=== PATIENT | male | born 1965 | race Caucasian/White ===

== ENCOUNTER 2017-01-09 10:09 | Emergency (ER) | payer BC, OTHER ==
[2017-01-09] MEDS ORDERED: Lidocaine 1% 20 ML MDV INJECT ONE (10:40)
[2017-01-09] MEDS ORDERED: Bacitracin Oint 1 GM U/D Packet TOP ONE (10:40)
--- NOTE | 2017-01-09 10:58 | EDM.PDOC ---
ED HPI GENERAL MEDICAL PROBLEM - General Chief Complaint: Laceration Stated Complaint: CUT TO RIGHT POINTER FINGER Time Seen by Provider: 01/09/17 10:14 Source of Information: Reports: Patient History Limitations: Reports: No Limitations - History of Present Illness INITIAL COMMENTS - FREE TEXT/NARRATIVE: HISTORY AND PHYSICAL: History of present illness: Patient is a 51-year-old male presents to the emergency room with complaints of a laceration to his right index finger. 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 This resulted in a laceration of the distal right index finger. Bleeding is controlled. Review of systems: As per history of present illness and below otherwise all systems reviewed and negative. Past medical history: As per history of present illness and as reviewed below otherwise noncontributory. Surgical history: As per history of present illness and as reviewed below otherwise noncontributory. Social history: No reported history of drug or alcohol abuse. Family history: As per history of present illness and as reviewed below otherwise noncontributory. Physical exam: Gen.: Nontoxic-appearing 51-year-old male. The cecum placenta is without shortness of breath. Alert and oriented. HEENT: Atraumatic, normocephalic, pupils reactive, negative for conjunctival pallor or scleral icterus, mucous membranes moist, throat clear, neck supple, nontender, trachea midline. Lungs: Clear to auscultation, breath sounds equal bilaterally, chest nontender. Heart: S1S2, regular, negative for clicks, rubs, or JVD. Abdomen: Soft, nondistended, nontender. Negative for masses or hepatosplenomegaly. Negative for costovertebral tenderness. Pelvis: Stable nontender. Genitourinary: Deferred. Rectal: Deferred. Skin: "C "shaped laceration to the right index finger, approximately 2 cm Extremities: Patient has full flexion and extension of the affected finger. No numbness or tingling to the affected extremity. Area was explored there is no tendon involvement. Strong radial pulse Neurovascular unremarkable. Neuro: Awake, alert, oriented. Cranial nerves II through XII unremarkable. Cerebellum unremarkable. Motor and sensory unremarkable throughout. Exam nonfocal. Diagnostics: X-ray Therapeutics: Tdap 1% lidocaine was used to anesthetize finger. Skin was washed with chlorhexidine and irrigated with wound wash. #8 interrupted sutures were placed using a 4-0 nylon. Vision tolerated procedure well. Subjacent was applied with a bulky nonstick dressing. Cage splint to protect the laceration was given with education. Impression: Laceration Plan: 1. Please monitor for monitor for signs of infection as we discussed. Keep the skin clean and dry. 2. Stitches need to be removed in 7-10 days. 3. These follow-up with your primary care provider in the next 1-2 days. Return to the emergency room as needed as discussed Definitive disposition and diagnosis as appropriate pending reevaluation and review of above. Onset: Today Duration: Minutes: Location: Reports: Upper Extremity, Right Right 2-Index finger Pain Score (Numeric/FACES): 5 - Related Data Allergies Allergy/AdvReac Type Severity Reaction Status Date / Time naproxen sodium [From Aleve] Allergy Swelling Verified 01/09/17 10:36 Home Meds: Home Meds Aspirin [Miguelito Chewable Aspirin] 81 mg PO QAM 08/19/14 [History] Insulin Aspart [NovoLOG] 5 unit SUBCUT TID 08/19/14 [History] Insulin Detemir [Levemir] 0 unit SUBCUT BID 08/19/14 [History] Gabapentin [Neurontin] 300 mg PO TID PRN 01/09/17 [History] Lisinopril 10 mg PO DAILY 01/09/17 [History] Saxagliptin HCl [Onglyza] 5 mg PO DAILY 01/09/17 [History] Tamsulosin [Flomax] 0.4 mg PO DAILY 01/09/17 [History] Past Medical History Musculoskeletal History: Reports: Other (See Below) Other Musculoskeletal History: partial left foot amputation Endocrine/Metabolic History: Reports: Diabetes, Type I - Infectious Disease History Infectious Disease History: Reports: Chicken Pox, Measles, MRSA, Mumps Social & Family History - Family History Family Medical History: Noncontributory - Tobacco Use Smoking Status *Q: Current Every Day Smoker Years of Tobacco use: 20 Packs/Tins Daily: 1 - Caffeine Use Caffeine Use: Reports: None - Alcohol Use Days Per Week of Alcohol Use: 0 - Recreational Drug Use Recreational Drug Use: No ED ROS GENERAL - Review of Systems Review Of Systems: ROS reveals no pertinent complaints other than HPI. ED EXAM, SKIN/RASH Exam: See Below (See dictation) ED SKIN PROCEDURES - Laceration/Wound Repair Right Distal Finger Lac/Wound length In cm: 2 Anesthetic Type: Digital Local Anesthesia - Lidocaine (Xylocaine): 1% Plain Local Anesthetic Volume: 5cc Skin Prep: Chlorhexidine (Hibiciens), Saline, Sterile Drape Saline Irrigation (cc's): 20 Exploration/Debridement/Repair: Wound Explored, In a Bloodless Field Closed with: Sutures Suture Size: 4-0 # of Sutures: 8 Suture Type: Nylon Course - Vital Signs Last Recorded V/S: Last Vital Signs Temp 36.4 C 01/09/17 10:33 Pulse 88 01/09/17 12:09 Resp 18 01/09/17 12:09 BP 136/88 01/09/17 12:09 Pulse Ox 95 01/09/17 12:09 - Orders/Labs/Meds Orders: Active Orders 24 hr Category Date Time Status Vaccines to be Administered [RC] PER UNIT ROUTINE Care 01/09/17 11:38 Active Meds: Medications Discontinued Medications Generic Name Dose Route Start Last Admin Trade Name Harrison PRN Reason Stop Dose Admin Bacitracin 1 dose 01/09/17 10:40 01/09/17 10:52 Bacitracin Oint 1 Gm TOP 01/09/17 10:41 1 dose ONETIME ONE Administration Diphtheria/Tetanus/Acell Pertussis 0.5 ml 01/09/17 11:38 01/09/17 11:48 Adacel IM 01/09/17 11:39 0.5 ml .ONCE ONE Administration Lidocaine HCl 20 ml 01/09/17 10:40 01/09/17 10:52 Xylocaine 1% INJECT 01/09/17 10:41 20 ml ONETIME ONE Administration Departure - Departure Time of Disposition: 11:41 Disposition: Home, Self-Care 01 Clinical Impression: Laceration - Discharge Information Instructions: Laceration Care, Adult, [id number] Referrals: PCP,None [Primary Care Provider] - Forms: ED Department Discharge Additional Instructions: My general discharge The following information is given to patients seen in the emergency department who are being discharged to home. This information is to outline your options for follow-up care. We provide all patients seen in our emergency department with a follow-up referral. The need for follow-up, as well as the timing and circumstances, are variable depending upon the specifics of your emergency department visit. If you don't have a primary care physician on staff, we will provide you with a referral. We always advise you to contact your personal physician following an emergency department visit to inform them of the circumstance of the visit and for follow-up with them and/or the need for any referrals to a consulting specialist. The emergency department will also refer you to a specialist when appropriate. This referral assures that you have the opportunity for follow-up care with a specialist. All of these measure are taken in an effort to provide you with optimal care, which includes your follow-up. Under all circumstances we always encourage you to contact your private physician who remains a resource for coordinating your care. When calling for follow-up care, please make the office aware that this follow-up is from your recent emergency room visit. If for any reason you are refused follow-up, please contact the [facility] at and asked to speak to the emergency department charge nurse. [facility] [address] [place] [id number] 1. Please monitor for monitor for signs of infection as we discussed. Keep the skin clean and dry. 2. Stitches need to be removed in 7-10 days. 3. These follow-up with your primary care provider in the next 1-2 days. Return to the emergency room as needed as discussed - My Orders Last 24 Hours: My Active Orders 01/09/17 11:38 Vaccines to be Administered [RC] PER UNIT ROUTINE - Assessment/Plan Last 24 Hours: My Active Orders 01/09/17 11:38 Vaccines to be Administered [RC] PER UNIT ROUTINE
--- NOTE | 2017-01-09 11:36 | CR ---
EXAMINATION: Right hand, second digit HISTORY: Injury COMPARISON: None TECHNIQUE: 3 views FINDINGS/IMPRESSION: There is no acute osseous abnormality, dislocation, or fracture. There is soft t issue swelling and likely defect involving the distal aspect of the second digit. Bone mineralization and joint spaces are otherwise normal.
[2017-01-09] MEDS ORDERED: Diphtheria,Pertussis(Acell),Tetanus Vaccine 0.5 ML Syringe IM ONE (11:38)
[2017-01-09 12:10] VITALS: BP 136/88
== END 2017-01-09 12:02 | disposition home or self-care (01) ==
LOC: MW.ED 10:09
DX: S61.210A Laceration without foreign body of right index finger without damage to nail, initial encounter (principal); Z23 Encounter for immunization; E10.9 Type 1 diabetes mellitus without complications; F17.210 Nicotine dependence, cigarettes, uncomplicated; Z79.4 Long term (current) use of insulin; Z79.82 Long term (current) use of aspirin; Z79.899 Other long term (current) drug therapy; Z88.8 Allergy status to other drugs, medicaments and biological substances; W27.8XXA Contact with other nonpowered hand tool, initial encounter
CPT/HCPCS: 12001; 73140-26-F6; 73140-F6; 90471; 90715; 99283; 99283-25

== ENCOUNTER 2017-11-08 16:51 | Emergency (ER) | payer SELFPAY ==
[2017-11-08] MEDS ORDERED: Sodium Chloride 0.9% 10 ML Syringe FLUSH PRN ×2 (16:53→17:25)
[2017-11-08] MEDS ORDERED: Sodium Chloride 0.9% 1,000 ML IV ONE ×3 (16:53→19:31)
[2017-11-08] MEDS ORDERED: Sodium Chloride 0.9% 2.5 ML Syringe FLUSH PRN ×2 (16:53→17:25)
--- NOTE | 2017-11-08 17:05 | EDM.PDOC ---
ED HPI GENERAL MEDICAL PROBLEM - General Chief Complaint: Neurological Problem Stated Complaint: FEELS VERY DIZZY Time Seen by Provider: 11/08/17 17:04 Source of Information: Reports: Patient History Limitations: Reports: No Limitations - History of Present Illness INITIAL COMMENTS - FREE TEXT/NARRATIVE: HISTORY AND PHYSICAL: History of present illness: Patient is a 52-year-old male presents to the ED for generally not feeling well and dizziness. He states that it really started this morning although he was not feeling great last night. He states he feels as if he got hit by a truck but reports he is on "so much pain medication" that he denies any pain. He states he feels dizzy and lightheaded, especially when he goes from sitting to standing position. He states his eyes feel blurry especially in the sun. He denies chest pain, SOB, abdominal pain, nausea, vomiting, diarrhea, headache. He reports some pressure between his shoulder blades recently. Past medical history significant for Type 1 diabetes and hypertension. Patient is on gabapentin for neuropathy. Review of systems: As per history of present illness and below otherwise all systems reviewed and negative. Past medical history: As per history of present illness and as reviewed below otherwise noncontributory. Surgical history: As per history of present illness and as reviewed below otherwise noncontributory. Social history: No reported history of drug or alcohol abuse. Family history: As per history of present illness and as reviewed below otherwise noncontributory. Physical exam: General: Patient lying in bed diaphoretic and pale but no acute distress HEENT: Mucous membranes dry. Atraumatic, normocephalic, pupils reactive, negative for conjunctival pallor or scleral icterus Lungs: Clear to auscultation, breath sounds equal bilaterally, chest nontender. Heart: Systolic murmur noted. S1S2, regular, negative for clicks, rubs, Abdomen: Soft, nondistended, nontender. Negative for masses or hepatosplenomegaly. Negative for costovertebral tenderness Extremities: Atraumatic, negative for cords or calf pain. Neurovascular unremarkable. Neuro: Awake, alert, oriented. Cranial nerves II through XII unremarkable. Cerebellum unremarkable. Motor and sensory unremarkable throughout. Exam nonfocal. Notes: BP 1840 is 86/56, patient sitting up alert and oriented x 3. Discussed with hospitalist who would like patient transferred to a facility with cardiac cath due to EKG abnormalities. Diagnostics: CBC, CMP, troponin, lipase, UA EKG, chest x-ray Therapeutics: 1 L normal saline x 2 10 units Regular Insulin Impression: Hypotension EKG abnormalities Plan: Dr. Andrews at [facility] accepted patient for transfer. Definitive disposition and diagnosis as appropriate pending reevaluation and review of above. - Related Data Allergies Allergy/AdvReac Type Severity Reaction Status Date / Time naproxen sodium [From Aleve] Allergy Swelling Verified 11/08/17 17:11 Home Meds: Home Meds Aspirin [Miguelito Chewable Aspirin] 81 mg PO QAM 08/19/14 [History] Insulin Aspart [NovoLOG] 5 unit SUBCUT TID 08/19/14 [History] Insulin Detemir [Levemir] 0 unit SUBCUT BID 08/19/14 [History] Gabapentin [Neurontin] 300 mg PO TID PRN 01/09/17 [History] Lisinopril 10 mg PO DAILY 01/09/17 [History] Saxagliptin HCl [Onglyza] 5 mg PO DAILY 01/09/17 [History] Tamsulosin [Flomax] 0.4 mg PO DAILY 01/09/17 [History] Past Medical History Musculoskeletal History: Reports: Other (See Below) Other Musculoskeletal History: partial left foot amputation Endocrine/Metabolic History: Reports: Diabetes, Type I - Infectious Disease History Infectious Disease History: Reports: Chicken Pox, Measles, MRSA, Mumps Social & Family History - Family History Family Medical History: Noncontributory - Caffeine Use Caffeine Use: Reports: None ED ROS GENERAL - Review of Systems Review Of Systems: ROS reveals no pertinent complaints other than HPI. ED EXAM, NEURO - Physical Exam Exam: See Below (see dictation) Course - Vital Signs Last Recorded V/S: Last Vital Signs Temp 36.3 C 11/08/17 17:08 Pulse 93 11/08/17 18:39 Resp 18 11/08/17 17:08 BP 109/56 L 11/08/17 18:39 Pulse Ox 91 L 11/08/17 17:08 - Orders/Labs/Meds Orders: Active Orders 24 hr Category Date Time Status EKG Documentation Completion [RC] STAT Care 11/08/17 16:58 Active RT Aerosol Therapy [RC] ASDIRECTED Care 11/08/17 18:05 Active Chest 1V Frontal [CR] Stat Exams 11/08/17 17:03 Taken UA W/MICROSCOPIC [URIN] Stat Lab 11/08/17 16:58 Ordered Sodium Chloride 0.9% [Saline Flush] Med 11/08/17 16:53 Active 10 ml FLUSH ASDIRECTED PRN Sodium Chloride 0.9% [Saline Flush] Med 11/08/17 17:25 Active 10 ml FLUSH ASDIRECTED PRN Sodium Chloride 0.9% [Saline Flush] Med 11/08/17 16:53 Active 2.5 ml FLUSH ASDIRECTED PRN Sodium Chloride 0.9% [Saline Flush] Med 11/08/17 17:25 Active 2.5 ml FLUSH ASDIRECTED PRN Saline Lock Insert [OM.PC] Stat Oth 11/08/17 16:53 Ordered Saline Lock Insert [OM.PC] Stat Ot 11/08/17 17:25 Ordered Medication Orders Sodium Chloride (Saline Flush) 10 ml FLUSH ASDIRECTED PRN PRN Reason: Keep Vein Open Sodium Chloride (Saline Flush) 2.5 ml FLUSH ASDIRECTED PRN PRN Reason: Keep Vein Open Sodium Chloride (Saline Flush) 10 ml FLUSH ASDIRECTED PRN PRN Reason: Keep Vein Open Sodium Chloride (Saline Flush) 2.5 ml FLUSH ASDIRECTED PRN PRN Reason: Keep Vein Open Labs: Laboratory Tests 11/08/17 11/08/17 11/08/17 Range/Units 17:06 17:06 17:06 WBC 10.94 (4.0-11.0) K/uL RBC 4.98 (4.50-5.90) M/uL Hgb 14.3 (13.0-17.0) g/dL Hct 40.0 (38.0-50.0) % MCV 80.3 (80.0-98.0) fL MCH 28.7 (27.0-32.0) pg MCHC 35.8 (31.0-37.0) g/dL RDW Std Deviation 38.5 (28.0-62.0) fl RDW Coeff of Ananth 13 (11.0-15.0) % Plt Count 192 (150-400) K/uL MPV 9.60 (7.40-12.00) fL Neut % (Auto) 65.7 (48.0-80.0) % Lymph % (Auto) 17.7 (16.0-40.0) % [place] % (Auto) 10.8 (0.0-15.0) % Eos % (Auto) 5.3 (0.0-7.0) % Baso % (Auto) 0.5 (0.0-1.5) % Neut # (Auto) 7.2 H (1.4-5.7) K/uL Lymph # (Auto) 1.9 (0.6-2.4) K/uL [place] # (Auto) 1.2 H (0.0-0.8) K/uL Eos # (Auto) 0.6 (0.0-0.7) K/uL Baso # (Auto) 0.1 (0.0-0.1) K/uL Nucleated RBC % 0.0 /100WBC Nucleated RBCs # 0 K/uL INR 1.01 VBG pH (7.31-7.41) VBG pCO2 (35-45) mmHG VBG pO2 (30-40) mmHG VBG HCO3 (22-30) mEq/L VBG Total CO2 (41-51) mmol/L VBG Base Excess (-3.0-3.0) Lactate (0.20-2.00) mmol/L Sodium 136 (136-148) mmol/L Potassium 4.3 (3.5-5.1) mmol/L Chloride 100 (98-107) mmol/L Carbon Dioxide 25.3 (21.0-32.0) mmol/L BUN 36 H (7.0-18.0) mg/dL Creatinine 2.7 H (0.8-1.3) mg/dL Est Cr Clr Drug Dosing 36.17 mL/min Estimated GFR (MDRD) 24.9 ml/min Glucose 340 H (74-106) mg/dL Calcium 10.9 H (8.5-10.1) mg/dL Total Bilirubin 0.4 (0.2-1.0) mg/dL AST 15 (15-37) IU/L ALT 21 (14-63) IU/L Alkaline Phosphatase 73 (46-116) U/L Troponin I < 0.050 (0.000-0.056) ng/mL Total Protein 8.0 (6.4-8.2) g/dL Albumin 3.3 L (3.4-5.0) g/dL Globulin 4.7 H (2.0-3.5) g/dL Albumin/Globulin Ratio 0.7 L (1.3-2.8) Lipase 228 (73-393) U/L 11/08/17 11/08/17 Range/Units 17:06 17:37 WBC (4.0-11.0) K/uL RBC (4.50-5.90) M/uL Hgb (13.0-17.0) g/dL Hct (38.0-50.0) % MCV (80.0-98.0) fL MCH (27.0-32.0) pg MCHC (31.0-37.0) g/dL RDW Std Deviation (28.0-62.0) fl RDW Coeff of Ananth (11.0-15.0) % Plt Count (150-400) K/uL MPV (7.40-12.00) fL Neut % (Auto) (48.0-80.0) % Lymph % (Auto) (16.0-40.0) % [place] % (Auto) (0.0-15.0) % Eos % (Auto) (0.0-7.0) % Baso % (Auto) (0.0-1.5) % Neut # (Auto) (1.4-5.7) K/uL Lymph # (Auto) (0.6-2.4) K/uL Raleigh # (Auto) (0.0-0.8) K/uL Eos # (Auto) (0.0-0.7) K/uL Baso # (Auto) (0.0-0.1) K/uL Nucleated RBC % /100WBC Nucleated RBCs # K/uL INR VBG pH 7.36 (7.31-7.41) VBG pCO2 17 L (35-45) mmHG VBG pO2 62 H (30-40) mmHG VBG HCO3 10 L (22-30) mEq/L VBG Total CO2 10 L (41-51) mmol/L VBG Base Excess -14.3 L (-3.0-3.0) Lactate 1.7 (0.20-2.00) mmol/L Sodium (136-148) mmol/L Potassium (3.5-5.1) mmol/L Chloride (98-107) mmol/L Carbon Dioxide (21.0-32.0) mmol/L BUN (7.0-18.0) mg/dL Creatinine (0.8-1.3) mg/dL Est Cr Clr Drug Dosing mL/min Estimated GFR (MDRD) ml/min Glucose (74-106) mg/dL Calcium (8.5-10.1) mg/dL Total Bilirubin (0.2-1.0) mg/dL AST (15-37) IU/L ALT (14-63) IU/L Alkaline Phosphatase (46-116) U/L Troponin I (0.000-0.056) ng/mL Total Protein (6.4-8.2) g/dL Albumin (3.4-5.0) g/dL Globulin (2.0-3.5) g/dL Albumin/Globulin Ratio (1.3-2.8) Lipase (73-393) U/L Meds: Medications Generic Name Dose Route Start Last Admin Trade Name Freq PRN Reason Stop Dose Admin Sodium Chloride 10 ml 11/08/17 16:53 Saline Flush FLUSH ASDIRECTED PRN Keep Vein Open Sodium Chloride 2.5 ml 11/08/17 16:53 Saline Flush FLUSH ASDIRECTED PRN Keep Vein Open Sodium Chloride 10 ml 11/08/17 17:25 Saline Flush FLUSH ASDIRECTED PRN Keep Vein Open Sodium Chloride 2.5 ml 11/08/17 17:25 Saline Flush FLUSH ASDIRECTED PRN Keep Vein Open Discontinued Medications Generic Name Dose Route Start Last Admin Trade Name Freq PRN Reason Stop Dose Admin Albuterol 2.5 mg 11/08/17 18:05 11/08/17 18:13 Proventil Neb Soln NEB 11/08/17 18:06 2.5 mg ONETIME ONE Administration Sodium Chloride 1,000 mls @ 999 mls/hr 11/08/17 16:53 11/08/17 17:23 Normal Saline IV 11/08/17 17:53 999 mls/hr STAT ONE Administration Sodium Chloride 1,000 mls @ 999 mls/hr 11/08/17 17:51 11/08/17 17:53 Normal Saline IV 11/08/17 18:51 999 mls/hr .Bolus ONE Administration Insulin Human Regular 10 unit 11/08/17 18:18 Novolin R IVPUSH 11/08/17 18:19 ONETIME ONE Protocol Departure - Departure Time of Disposition: 19:18 Disposition: DC/Tfer to Acute Hospital 02 Condition: Good Clinical Impression: Hypotension, EKG abnormalities - Discharge Information - My Orders Last 24 Hours: My Active Orders 11/08/17 16:53 Sodium Chloride 0.9% [Saline Flush] 10 ml FLUSH ASDIRECTED PRN Sodium Chloride 0.9% [Saline Flush] 2.5 ml FLUSH ASDIRECTED PRN Saline Lock Insert [OM.PC] Stat 11/08/17 16:58 EKG Documentation Completion [RC] STAT UA W/MICROSCOPIC [URIN] Stat 11/08/17 17:03 Chest 1V Frontal [CR] Stat - Assessment/Plan Last 24 Hours: My Active Orders 11/08/17 16:53 Sodium Chloride 0.9% [Saline Flush] 10 ml FLUSH ASDIRECTED PRN Sodium Chloride 0.9% [Saline Flush] 2.5 ml FLUSH ASDIRECTED PRN Saline Lock Insert [OM.PC] Stat 11/08/17 16:58 EKG Documentation Completion [RC] STAT UA W/MICROSCOPIC [URIN] Stat 11/08/17 17:03 Chest 1V Frontal [CR] Stat
[2017-11-08 17:43] LABS: CHLORIDE,CL 100 mmol/L (98-107); SODIUM,NA 136 mmol/L (136-148)
[2017-11-08] MEDS ORDERED: Albuterol 0.083% 2.5 MG/3 ML Neb Soln NEB ONE (18:05)
[2017-11-08] MEDS ORDERED: Insulin Regular, Human 100 Units/ML 10 ML Vial IVPUSH ONE ×2 (18:18→19:15)
[2017-11-08 23:52] VITALS: BP 123/88
--- NOTE | 2017-11-11 08:55 | CR ---
EXAM DATE: 11/08/17 PATIENT'S AGE: 52 Patient: SURY SAUCEDA Facility: [place], [place] Site . Site : [id number] Study: XRay Chest [id number]/20/2018 5:32:13 PM Ordering Physician: Doctor Mclaughlin Final Report: HISTORY: Dizziness. TECHNIQUE: Portable frontal view the chest. COMPARISON: None. FINDINGS: No airspace consolidation. No pleural effusion or pneumothorax. Pulmonary vasculature is within normal limits. Cardiomediastinal silhouette is within normal limits. IMPRESSION: No acute findings. Dictated by Eliseo Ramires MD @ Nov 08 2017 6:19PM (Electronic Signature) Report Signed by Proxy. ANDRIY
== END 2017-11-08 19:33 ==
LOC: MW.ED 16:51 → MW.ICU 18:31 → UNDOADMIN 18:31 → UNDODISIN 19:33 → MW.ED 19:33
DX: I95.9 Hypotension, unspecified (principal); R94.31 Abnormal electrocardiogram [ECG] [EKG]; E10.9 Type 1 diabetes mellitus without complications; Z88.8 Allergy status to other drugs, medicaments and biological substances
CPT/HCPCS: 36415; 71045; 80053; 82803; 82962; 83605; 83690; 84484; 85025; 85610; 87040; 93005; 94640; 96360; 96361; 99285; J1815; J7040; 99284

== ENCOUNTER 2018-05-15 13:31 | Emergency (ER) | payer MEDICAID ==
[2018-05-15] MEDS ORDERED: Sodium Chloride 0.9% 1,000 ML IV ONE ×2 (13:38→14:37)
[2018-05-15] MEDS ORDERED: Furosemide 40 MG/4 ML VIAL IVPUSH ONE (13:46)
--- NOTE | 2018-05-15 13:58 | EDM.PDOC ---
ED HPI GENERAL MEDICAL PROBLEM - General Chief Complaint: Genitourinary Problem Stated Complaint: KIDNEYS Time Seen by Provider: 05/15/18 13:53 Source of Information: Reports: Patient History Limitations: Reports: No Limitations - History of Present Illness INITIAL COMMENTS - FREE TEXT/NARRATIVE: HISTORY AND PHYSICAL: History of present illness: Patient is a 53-year-old male who presents to the emergency room from [facility] with concerns of elevated calcium levels. He states he initially went to [facility] for evaluation of syncopal episodes. He states that they did some routine lab work which showed he had high calcium. Encouraged him to come to the emergency room for evaluation. Patient states he has had 3 syncopal episodes over the past week. During these episodes he initially is dizzy and then finds himself on the ground. Afterwards he has been able to resume his routine ADLs. He denies any headache, visual changes, diaphoresis. Denies any fever, chills, chest pain, shortness of breath or cough. History of HTN and DM and takes oral and insulin diabetic medications. History of renal insufficiency which he has been transferred for in the past. Review of systems: As per history of present illness and below otherwise all systems reviewed and negative. Past medical history: As per history of present illness and as reviewed below otherwise noncontributory. Surgical history: As per history of present illness and as reviewed below otherwise noncontributory. Social history: See social history for further information Family history: As per history of present illness and as reviewed below otherwise noncontributory. Physical exam: General: Well-developed and well-nourished 53-year-old male. Alert and oriented. Appears in no acute distress. HEENT: Nontender with palpation, normocephalic, pupils equal and reactive bilaterally, negative for conjunctival pallor or scleral icterus, mucous membranes moist, TMs normal bilaterally, throat clear, neck supple, nontender, trachea midline. No drooling or trismus noted. No meningeal signs. No hot potato voice noted. Lungs: Clear to auscultation, breath sounds equal bilaterally, chest nontender. Heart: S1S2, regular rate and rhythm without overt murmur Abdomen: Soft, obese, nontender. Negative for masses or hepatosplenomegaly. Negative for costovertebral tenderness. Pelvis: Stable nontender. Genitourinary: Deferred. Rectal: Deferred. Skin: Crow/pale hue. Intact, warm, dry. No lesions or rashes noted. Extremities: Moves all extremities per self without difficulty or deficits, negative for cords or calf pain. +2 pitting edema to bilateral LE. Palpable pedal pulses bilat. Neurovascular unremarkable. Neuro: Awake, alert, oriented. Cranial nerves II through XII unremarkable. Cerebellum unremarkable. Motor and sensory unremarkable throughout. Exam nonfocal. Notes: 05/15/18 Labs at [facility]: Calcium was 14.7, Hemoglobin A1c 7.5, BUN 42, Creat 5.68 Please see this ER visits labs, they have increased. Head CT negative and chest x-ray. Vital signs are stable. Dr Rangel, ER MD at [facility] in [place], was consulted on this case. She is agreeable to accepting this patient for transfer. Dr Valerio, the hospitalist, will make this patient a direct admit. This information was shared with the patient. He voices understanding and is agreeable. Patient will go via ground EMS Diagnostics: CBC, CMP, troponin, EKG, one view chest, head CT, UA Therapeutics: IV fluid, Lasix Impression: Acute Renal Failure Hypercalcemia Plan: Transfer to [facility] in [place] Definitive disposition and diagnosis as appropriate pending reevaluation and review of above. - Related Data Allergies Allergy/AdvReac Type Severity Reaction Status Date / Time naproxen sodium [From Aleve] Allergy Swelling Verified 11/08/17 17:11 Home Meds: Home Meds Acetaminophen/HYDROcodone [Baring 325-5 MG] 1 tab PO Q4H 05/15/18 [History] Aspirin [Adult Aspirin] 81 mg PO DAILY 05/15/18 [History] Clopidogrel [Plavix] 75 mg PO DAILY 05/15/18 [History] Colchicine 0.6 mg PO DAILY 05/15/18 [History] Esomeprazole [NexIUM] 40 mg PO DAILY 05/15/18 [History] Gabapentin [Neurontin] 100 mg PO TID 05/15/18 [History] Insulin Aspart [NovoLOG] 0 unit WITHMEALSANDBED 05/15/18 [History] Insulin Detemir [Levemir] 0 unit SUBCUT DAILY 05/15/18 [History] Magnesium Oxide 400 mg PO DAILY 05/15/18 [History] Polymyxin B/Trimethoprim [PolyTrim Ophth Soln] 10 ml OP QID 05/15/18 [History] Potassium Chloride [Klor-Con 10] 1 tab BID 05/15/18 [History] Saxagliptin HCl [Onglyza] 5 mg PO DAILY 05/15/18 [History] Tamsulosin [Flomax] 1 tab DAILY 05/15/18 [History] metOLazone [Metolazone] 2.5 mg PO DAILY 05/15/18 [History] Past Medical History HEENT History: Reports: Impaired Vision Cardiovascular History: Reports: Blood Clots/VTE/DVT Musculoskeletal History: Reports: Other (See Below) Other Musculoskeletal History: partial left foot amputation Endocrine/Metabolic History: Reports: Diabetes, Type I - Infectious Disease History Infectious Disease History: Reports: Chicken Pox, Measles, Mumps - Past Surgical History HEENT Surgical History: Reports: Tonsillectomy, Visual Social & Family History - Family History Family Medical History: Noncontributory - Tobacco Use Smoking Status *Q: Former Smoker Used Tobacco, but Quit: Yes Month/Year Tobacco Last Used: 1.5 - Caffeine Use Caffeine Use: Reports: None - Recreational Drug Use Recreational Drug Use: No ED ROS GENERAL - Review of Systems Review Of Systems: ROS reveals no pertinent complaints other than HPI. ED EXAM, GENERAL - Physical Exam Exam: See Below (See dictation) Course - Vital Signs Last Recorded V/S: Last Vital Signs Temp 96.5 F 05/15/18 13:39 Pulse 91 05/15/18 13:39 Resp 18 05/15/18 13:39 BP 130/71 05/15/18 13:39 Pulse Ox 97 05/15/18 13:39 - Orders/Labs/Meds Orders: Active Orders 24 hr Category Date Time Status EKG Documentation Completion [RC] STAT Care 05/15/18 13:38 Active Castellano Catheter Insertion [Insert Urinary Catheter] [OM. Care 05/15/18 14:45 Ordered PC] Q24H Urinary Catheter Assessment [RC] ASDIRECTED Care 05/15/18 14:38 Ordered Sodium Chloride 0.9% [Normal Saline] 1,000 ml Med 05/15/18 14:37 Ordered IV STAT Medication Orders Sodium Chloride (Normal Saline) 1,000 mls @ 999 mls/hr IV STAT ONE Stop: 05/15/18 15:37 Labs: Laboratory Tests 05/15/18 05/15/18 05/15/18 Range/Units 13:46 13:46 13:46 WBC 7.47 (4.0-11.0) K/uL RBC 3.77 L (4.50-5.90) M/uL Hgb 10.0 L (13.0-17.0) g/dL Hct 30.6 L (38.0-50.0) % MCV 81.2 (80.0-98.0) fL MCH 26.5 L (27.0-32.0) pg MCHC 32.7 (31.0-37.0) g/dL RDW Std Deviation 41.0 (28.0-62.0) fl RDW Coeff of Ananth 14 (11.0-15.0) % Plt Count 223 (150-400) K/uL MPV 8.50 (7.40-12.00) fL Neut % (Auto) 63.4 (48.0-80.0) % Lymph % (Auto) 18.9 (16.0-40.0) % [place] % (Auto) 10.3 (0.0-15.0) % Eos % (Auto) 7.1 H (0.0-7.0) % Baso % (Auto) 0.3 (0.0-1.5) % Neut # (Auto) 4.7 (1.4-5.7) K/uL Lymph # (Auto) 1.4 (0.6-2.4) K/uL [place] # (Auto) 0.8 (0.0-0.8) K/uL Eos # (Auto) 0.5 (0.0-0.7) K/uL Baso # (Auto) 0.0 (0.0-0.1) K/uL Nucleated RBC % 0.0 /100WBC Nucleated RBCs # 0 K/uL Sodium 136 (136-148) mmol/L Potassium 4.0 (3.5-5.1) mmol/L Chloride 99 (98-107) mmol/L Carbon Dioxide 25.5 (21.0-32.0) mmol/L BUN 42 H (7.0-18.0) mg/dL Creatinine 6.1 H (0.8-1.3) mg/dL Est Cr Clr Drug Dosing 15.83 mL/min Estimated GFR (MDRD) 9.7 ml/min Glucose 191 H (74-106) mg/dL Calcium 16.0 H (8.5-10.1) mg/dL Total Bilirubin 0.2 (0.2-1.0) mg/dL AST 19 (15-37) IU/L ALT 22 (14-63) IU/L Alkaline Phosphatase 77 (46-116) U/L Troponin I < 0.050 (0.000-0.056) ng/mL Total Protein 7.6 (6.4-8.2) g/dL Albumin 2.8 L (3.4-5.0) g/dL Globulin 4.8 H (2.6-4.0) g/dL Albumin/Globulin Ratio 0.6 L (0.9-1.6) Urine Color Urine Appearance Urine pH (5.0-8.0) Ur Specific [place] (1.001-1.035) Urine Protein (NEGATIVE) mg/dL Urine Glucose (UA) (NEGATIVE) mg/dL Urine Ketones (NEGATIVE) mg/dL Urine Occult Blood (NEGATIVE) Urine Nitrite (NEGATIVE) Urine Bilirubin (NEGATIVE) Urine Urobilinogen (<2.0) EU/dL Ur Leukocyte Esterase (NEGATIVE) Urine RBC (0-2/HPF) Urine WBC (0-5/HPF) Ur Epithelial Cells (NONE-FEW) Urine Bacteria (NEGATIVE) 05/15/18 Range/Units 14:30 WBC (4.0-11.0) K/uL RBC (4.50-5.90) M/uL Hgb (13.0-17.0) g/dL Hct (38.0-50.0) % MCV (80.0-98.0) fL MCH (27.0-32.0) pg MCHC (31.0-37.0) g/dL RDW Std Deviation (28.0-62.0) fl RDW Coeff of Ananth (11.0-15.0) % Plt Count (150-400) K/uL MPV (7.40-12.00) fL Neut % (Auto) (48.0-80.0) % Lymph % (Auto) (16.0-40.0) % [place] % (Auto) (0.0-15.0) % Eos % (Auto) (0.0-7.0) % Baso % (Auto) (0.0-1.5) % Neut # (Auto) (1.4-5.7) K/uL Lymph # (Auto) (0.6-2.4) K/uL [place] # (Auto) (0.0-0.8) K/uL Eos # (Auto) (0.0-0.7) K/uL Baso # (Auto) (0.0-0.1) K/uL Nucleated RBC % /100WBC Nucleated RBCs # K/uL Sodium (136-148) mmol/L Potassium (3.5-5.1) mmol/L Chloride (98-107) mmol/L Carbon Dioxide (21.0-32.0) mmol/L BUN (7.0-18.0) mg/dL Creatinine (0.8-1.3) mg/dL Est Cr Clr Drug Dosing mL/min Estimated GFR (MDRD) ml/min Glucose (74-106) mg/dL Calcium (8.5-10.1) mg/dL Total Bilirubin (0.2-1.0) mg/dL AST (15-37) IU/L ALT (14-63) IU/L Alkaline Phosphatase (46-116) U/L Troponin I (0.000-0.056) ng/mL Total Protein (6.4-8.2) g/dL Albumin (3.4-5.0) g/dL Globulin (2.6-4.0) g/dL Albumin/Globulin Ratio (0.9-1.6) Urine Color YELLOW Urine Appearance CLEAR Urine pH 6.0 (5.0-8.0) Ur Specific [place] 1.015 (1.001-1.035) Urine Protein 30 H (NEGATIVE) mg/dL Urine Glucose (UA) NEGATIVE (NEGATIVE) mg/dL Urine Ketones NEGATIVE (NEGATIVE) mg/dL Urine Occult Blood TRACE-INTACT H (NEGATIVE) Urine Nitrite NEGATIVE (NEGATIVE) Urine Bilirubin NEGATIVE (NEGATIVE) Urine Urobilinogen 0.2 (<2.0) EU/dL Ur Leukocyte Esterase NEGATIVE (NEGATIVE) Urine RBC 0-1 (0-2/HPF) Urine WBC 0-2 (0-5/HPF) Ur Epithelial Cells FEW (NONE-FEW) Urine Bacteria RARE (NEGATIVE) Meds: Medications Generic Name Dose Route Start Last Admin Trade Name Freish PRN Reason Stop Dose Admin Sodium Chloride 1,000 mls @ 999 mls/hr 05/15/18 14:37 Normal Saline IV 05/15/18 15:37 STAT ONE Discontinued Medications Generic Name Dose Route Start Last Admin Trade Name Freish PRN Reason Stop Dose Admin Furosemide 40 mg 05/15/18 13:46 05/15/18 13:58 Lasix IVPUSH 05/15/18 13:47 40 mg NOW ONE Administration Sodium Chloride 1,000 mls @ 999 mls/hr 05/15/18 13:38 05/15/18 13:50 Normal Saline IV 05/15/18 14:38 999 mls/hr STAT ONE Administration Departure - Departure Time of Disposition: 15:09 Disposition: DC/Tfer to [facility] 02 Clinical Impression: Hypercalcemia Acute renal failure Qualifiers: Acute renal failure type: unspecified Qualified Code(s): N17.9 - Acute kidney failure, unspecified - Discharge Information Referrals: Raul Lynn MD [Primary Care Provider] - Forms: ED Department Discharge - My Orders Last 24 Hours: My Active Orders 05/15/18 13:38 EKG Documentation Completion [RC] STAT 05/15/18 14:37 Sodium Chloride 0.9% [Normal Saline] 1,000 ml IV STAT 05/15/18 14:38 Urinary Catheter Assessment [RC] ASDIRECTED 05/15/18 14:45 Castellano Catheter Insertion [Insert Urinary Catheter] [OM.PC] Q24H - Assessment/Plan Last 24 Hours: My Active Orders 05/15/18 13:38 EKG Documentation Completion [RC] STAT 05/15/18 14:37 Sodium Chloride 0.9% [Normal Saline] 1,000 ml IV STAT 05/15/18 14:38 Urinary Catheter Assessment [RC] ASDIRECTED 05/15/18 14:45 Castellano Catheter Insertion [Insert Urinary Catheter] [OM.PC] Q24H
--- NOTE | 2018-05-15 14:28 | CR ---
EXAMINATION: Portable chest radiograph. HISTORY: Elevated calcium Comparison: 11/08/2017 FINDINGS: The trachea is midline. The cardiomediastinal silhouette is within normal limits. No pulmonary infiltrates, effusions or pneumothorax. Osseous structures appear unremarkable. IMPRESSION: No acute cardiopulmonary process.
--- NOTE | 2018-05-15 14:35 | CT ---
EXAMINATION: Non contrast CT head. Coronal and sagittal reformats. HISTORY: Pain FINDINGS: No evidence of intra or extra axial hemorrhage, mass, midline shift, hydrocephalus or edema. No hypoattenuation changes in the major vascular territories to suggest acute infarct. No abnormal intracranial calcifications are detected. No evidence of substantial vascular calcifications. Paranasal sinuses and mastoid air cells are well aerated without substantial findings. Orbits and globes are symmetric. Pituitary fossa appears unremarkable. Calvarium is intact. No evidence of skull fracture. IMPRESSION: No acute intracranial findings.
[2018-05-15 15:15] VITALS: BP 129/78
== END 2018-05-15 16:15 ==
LOC: MW.ED 13:31
DX: N17.9 Acute kidney failure, unspecified (principal); E83.52 Hypercalcemia; E10.9 Type 1 diabetes mellitus without complications; Z79.899 Other long term (current) drug therapy; Z87.891 Personal history of nicotine dependence; Z79.82 Long term (current) use of aspirin; Z88.8 Allergy status to other drugs, medicaments and biological substances
CPT/HCPCS: 36415; 70450; 71045; 80053; 81001; 84484; 85025; 93005; 96361; 96374; 99285; J1940; J7040; 99284

== ENCOUNTER 2018-07-20 11:27 | Emergency (ER) | payer MEDICAID ==
[2018-07-20] MEDS ORDERED: Sodium Chloride 0.9% 1,000 ML IV ONE (11:55)
--- NOTE | 2018-07-20 12:01 | EDM.PDOC ---
ED HPI GENERAL MEDICAL PROBLEM - General Chief Complaint: Lower Extremity Injury/Pain Stated Complaint: FOOT INJURY Time Seen by Provider: 07/20/18 11:42 Source of Information: Reports: Patient History Limitations: Reports: No Limitations - History of Present Illness INITIAL COMMENTS - FREE TEXT/NARRATIVE: HISTORY AND PHYSICAL: History of present illness: Patient is a 53-year-old male who presents to the ED today with concern of his recent surgery is not healing correctly. Approximately 10 days ago patient had all of his toes on his right foot amputated. He states he they were amputated due to his diabetes. He states all of this toes had turned black so required amputation. He states he also has a known blood clot in his right leg in which he is on a blood thinner for. He states that he has begun to notice the suture line becoming black and states his foot also has a foul odor. She states the feeling in his leg is diminished but this is normal for him. He rates his pain a 4 out of 10. He states he is currently not on any antibiotics and has not taken any antibiotics since surgery. He is unsure of his next follow up with Dr. Brownlee. Procedure amputation was performed by Dr. Brownlee at [facility] in [place]. Patient denies fever, chills, chest pain, shortness of breath, or cough. Denies nausea, vomiting, abdominal pain, diarrhea.Patient has been eating and drinking appropriately. Review of systems: As per history of present illness and below otherwise all systems reviewed and negative. Past medical history: As per history of present illness and as reviewed below otherwise noncontributory. Surgical history: As per history of present illness and as reviewed below otherwise noncontributory. Social history: See social history for further information Family history: As per history of present illness and as reviewed below otherwise noncontributory. Physical exam: General: Patient is alert, oriented, and in no acute distress. He does appear chronically ill but is lying comfortably on exam table. HEENT: Atraumatic, normocephalic, pupils equal and reactive bilaterally, negative for conjunctival pallor or scleral icterus, mucous membranes moist, TMs normal bilaterally, throat clear, neck supple, nontender, trachea midline. No drooling or trismus noted. No meningeal signs. No hot potato voice noted. Lungs: Clear to auscultation, breath sounds equal bilaterally, chest nontender. Heart: S1S2, regular rate and rhythm without overt murmur Abdomen: Obese, soft, nondistended, nontender. Negative for masses or hepatosplenomegaly. Negative for costovertebral tenderness. Pelvis: Stable nontender. Genitourinary: Deferred. Rectal: Deferred. Skin: See Extremities. Otherwise, intact, warm, dry. No lesions or rashes noted. Extremities: There is an incision with suture placement consistent with recent surgical history. There is a 3 cm blackened area of the entire incision line on the right foot. Foot is warm to touch to the level of the ankle. There is a foul /sour odor about the exam room. DP/TP pulses intact via doppler. Neuro: Awake, alert, oriented. Cranial nerves II through XII unremarkable. Cerebellum unremarkable. Motor and sensory unremarkable throughout. Exam nonfocal. Notes: Dr. Deutsch was directly involved in patients care. 13:20: Call made to [facility] in [place]. Confirmed surgical procedure performed by Dr. Brownlee. Spoke directly with Dr. Brownlee who confirms need to transfer. Spoke to hospitalist, Dr. Banegas, who is accepting of patient for transfer to [facility] in [place]. Diagnostics: CBC, CMP, lactic acid, blood cultures 2, foot xray Therapeutics: Saline, Vancomycin, Zosyn Impression: Post op infection, right foot Plan: 1. Transfer to [facility] Definitive disposition and diagnosis as appropriate pending reevaluation and review of above. - Related Data Allergies Allergy/AdvReac Type Severity Reaction Status Date / Time naproxen sodium [From Aleve] Allergy Swelling Verified 07/20/18 11:43 Home Meds: Home Meds Apixaban [Eliquis] 1 tab PO DAILY 07/20/18 [History] Hydrocodone/Acetaminophen [Hydrocodon-Acetaminophen 5-325] 1 tab PO TID PRN [History] Insulin Aspart [NovoLOG] 1 unit SQ BID 07/20/18 [History] Insulin Detemir [Levemir] 20 unit SQ DAILY 07/20/18 [History] Lisinopril 10 mg PO DAILY 07/20/18 [History] Metoprolol Tartrate 12.5 mg PO DAILY 07/20/18 [History] predniSONE [Prednisone] 1 tab PO DAILY 07/20/18 [History] Past Medical History HEENT History: Reports: Impaired Vision Cardiovascular History: Reports: Blood Clots/VTE/DVT Genitourinary History: Reports: Dialysis, Diabetic Nephropathy Other Genitourinary History: kidney failure from sarcoidosis Musculoskeletal History: Reports: Gout, Other (See Below) Other Musculoskeletal History: partial left foot amputation, recent R all 5 toes amputations. Endocrine/Metabolic History: Reports: Diabetes, Type I Oncologic (Cancer) History: Reports: Other (See Below) Other Oncologic History: sarcoidosis - Infectious Disease History Infectious Disease History: Reports: Chicken Pox, Measles, MRSA, Mumps - Past Surgical History HEENT Surgical History: Reports: Tonsillectomy, Visual Social & Family History - Family History Family Medical History: Noncontributory - Tobacco Use Smoking Status *Q: Former Smoker Used Tobacco, but Quit: Yes Month/Year Tobacco Last Used: 2016 - Caffeine Use Caffeine Use: Reports: Coffee - Recreational Drug Use Recreational Drug Use: No Review of Systems - Review of Systems Review Of Systems: ROS reveals no pertinent complaints other than HPI. ED EXAM, GENERAL - Physical Exam Exam: See Below (see dictation) Course - Vital Signs Last Recorded V/S: Last Vital Signs Temp 36.1 C 07/20/18 11:38 Pulse 87 07/20/18 11:38 Resp 18 07/20/18 11:38 BP 166/76 H 07/20/18 11:38 Pulse Ox 97 07/20/18 11:38 - Orders/Labs/Meds Orders: Active Orders 24 hr Category Date Time Status Communication Order [RC] STAT Care 07/20/18 12:02 Active CULTURE BLOOD [BC] Stat Lab 07/20/18 12:22 Received CULTURE BLOOD [BC] Stat Lab 07/20/18 12:30 Received Piperacillin/Tazobactam [Piperacil-Tazobact] 3.375 gm Med 07/20/18 12:58 Ordered Sodium Chloride 0.9% [Normal Saline] 50 ml IV ONETIME Vancomycin [Vancocin] 1 gm Med 07/20/18 12:58 Ordered Sodium Chloride 0.9% [Normal Saline] 250 ml IV ONETIME Blood Culture x2 Reflex Set [OM.PC] Stat Oth 07/20/18 11:55 Ordered Medication Orders Piperacillin Sod/Tazobactam (Sod 3.375 gm/ Sodium Chloride) 50 mls @ 100 mls/ hr IV ONETIME ONE Stop: 07/20/18 13:27 Last Admin: 07/20/18 13:20 Dose: 100 mls/hr Vancomycin HCl 1 gm/ Sodium (Chloride) 250 mls @ 250 mls/hr IV ONETIME ONE Stop: 07/20/18 13:57 Labs: Laboratory Tests 07/20/18 07/20/18 07/20/18 Range/Units 12:09 12:09 12:09 WBC 16.41 H (4.0-11.0) K/uL RBC 3.60 L (4.50-5.90) M/uL Hgb 10.0 L (13.0-17.0) g/dL Hct 30.4 L (38.0-50.0) % MCV 84.4 (80.0-98.0) fL MCH 27.8 (27.0-32.0) pg MCHC 32.9 (31.0-37.0) g/dL RDW Std Deviation 51.6 (28.0-62.0) fl RDW Coeff of Ananth 17 H (11.0-15.0) % Plt Count 195 (150-400) K/uL MPV 9.70 (7.40-12.00) fL Neut % (Auto) 86.3 H (48.0-80.0) % Lymph % (Auto) 5.8 L (16.0-40.0) % [place] % (Auto) 7.2 (0.0-15.0) % Eos % (Auto) 0.6 (0.0-7.0) % Baso % (Auto) 0.1 (0.0-1.5) % Neut # (Auto) 14.2 H (1.4-5.7) K/uL Lymph # (Auto) 1.0 (0.6-2.4) K/uL [place] # (Auto) 1.2 H (0.0-0.8) K/uL Eos # (Auto) 0.1 (0.0-0.7) K/uL Baso # (Auto) 0.0 (0.0-0.1) K/uL Nucleated RBC % 0.0 /100WBC Nucleated RBCs # 0 K/uL Lactate 1.8 (0.20-2.00) mmol/L Sodium 141 (136-148) mmol/L Potassium 4.3 (3.5-5.1) mmol/L Chloride 105 (98-107) mmol/L Carbon Dioxide 22.2 (21.0-32.0) mmol/L BUN 36 H (7.0-18.0) mg/dL Creatinine 2.6 H (0.8-1.3) mg/dL Est Cr Clr Drug Dosing 37.13 mL/min Estimated GFR (MDRD) 25.9 ml/min Glucose 98 (74-106) mg/dL Calcium 9.0 (8.5-10.1) mg/dL Total Bilirubin 0.3 (0.2-1.0) mg/dL AST 22 (15-37) IU/L ALT 21 (14-63) IU/L Alkaline Phosphatase 84 (46-116) U/L Total Protein 6.4 (6.4-8.2) g/dL Albumin 2.4 L (3.4-5.0) g/dL Globulin 4.0 (2.6-4.0) g/dL Albumin/Globulin Ratio 0.6 L (0.9-1.6) Meds: Medications Generic Name Dose Route Start Last Admin Trade Name Freq PRN Reason Stop Dose Admin Piperacillin Sod/Tazobactam 50 mls @ 100 mls/hr 07/20/18 12:58 07/20/18 13:20 Sod 3.375 gm/ Sodium Chloride IV 07/20/18 13:27 100 mls/hr ONETIME ONE Administration Vancomycin HCl 1 gm/ Sodium 250 mls @ 250 mls/hr 07/20/18 12:58 Chloride IV 07/20/18 13:57 ONETIME ONE Discontinued Medications Generic Name Dose Route Start Last Admin Trade Name Freq PRN Reason Stop Dose Admin Sodium Chloride 1,000 mls @ 999 mls/hr 07/20/18 11:55 07/20/18 12:39 Normal Saline IV 07/20/18 12:55 999 mls/hr STAT ONE Administration Departure - Departure Time of Disposition: 13:26 Disposition: DC/Tfer to [facility] 02 Clinical Impression: Post op infection Qualifiers: Encounter type: initial encounter Postoperative infection type: deep incisional surgical site Qualified Code(s): T81.42XA - Infection following a procedure, deep incisional surgical site, initial encounter - Discharge Information Referrals: PCP,Unknown [Primary Care Provider] - Forms: ED Department Discharge - My Orders Last 24 Hours: My Active Orders 07/20/18 11:55 Blood Culture x2 Reflex Set [OM.PC] Stat 07/20/18 12:02 Communication Order [RC] STAT 07/20/18 12:22 CULTURE BLOOD [BC] Stat 07/20/18 12:30 CULTURE BLOOD [BC] Stat 07/20/18 12:58 Piperacillin/Tazobactam [Piperacil-Tazobact] 3.375 gm Sodium Chloride 0.9% [ Normal Saline] 50 ml IV ONETIME Vancomycin [Vancocin] 1 gm Sodium Chloride 0.9% [Normal Saline] 250 ml IV ONETIME - Assessment/Plan Last 24 Hours: My Active Orders 07/20/18 11:55 Blood Culture x2 Reflex Set [OM.PC] Stat 07/20/18 12:02 Communication Order [RC] STAT 07/20/18 12:22 CULTURE BLOOD [BC] Stat 07/20/18 12:30 CULTURE BLOOD [BC] Stat 07/20/18 12:58 Piperacillin/Tazobactam [Piperacil-Tazobact] 3.375 gm Sodium Chloride 0.9% [ Normal Saline] 50 ml IV ONETIME Vancomycin [Vancocin] 1 gm Sodium Chloride 0.9% [Normal Saline] 250 ml IV ONETIME
[2018-07-20] MEDS ORDERED: Piperacillin/Tazobactam 3.375 GM in Sodium Chloride 0.9% 50 ML IV ONE (12:58)
--- NOTE | 2018-07-20 13:22 | CR ---
INDICATION: History of foot surgery and postoperative swelling. TECHNIQUE: Two-view. FINDINGS: There are postsurgical changes identified from amputation of the 1st through 5th toes at the level of the metatarsals. Extensive vascular calcifications noted. There is soft tissue swelling distally in the right foot. There is some scattered gas identified projected over the region adjacent to the 1st metatarsal. No acute fracture is seen. IMPRESSION: 1. Postsurgical change identified from amputation of the 1st through 5th toes. 2. Soft tissue swelling noted. Some scattered gas bubbles identified within the soft tissues adjacent to the 1st metatarsal. Differential diagnosis includes postoperative gas versus a potential gas-forming organism. 3. No fracture is seen. Extensive vascular calcification is seen. Dictated by Wilmer Bruce MD @ 07/20/2018 1:21:06 PM Dictated by: Wilmer Bruce MD @ 07/20/2018 13:21:14 (Electronically Signed)
[2018-07-20 15:33] VITALS: BP 118/53
== END 2018-07-20 15:10 ==
LOC: MW.ED 11:27
DX: T81.42XA Infection following a procedure, deep incisional surgical site, initial encounter (principal); E11.21 Type 2 diabetes mellitus with diabetic nephropathy; Z87.891 Personal history of nicotine dependence; Z79.4 Long term (current) use of insulin; Z79.01 Long term (current) use of anticoagulants
CPT/HCPCS: 36415; 73620; 80053; 83605; 85025; 87040; 96361; 96365; 96367; 99284; J2543; J3370; J7040; J7050

== ENCOUNTER 2019-02-25 18:59 | Emergency (ER) | payer MEDICAID ==
[2019-02-25 19:17] VITALS: BP 144/78; PULSE 88
--- NOTE | 2019-02-25 19:33 | EDM.PDOC ---
ED HPI GENERAL MEDICAL PROBLEM - General Chief Complaint: Skin Complaint Stated Complaint: LEFT ARM INFECTION Time Seen by Provider: 02/25/19 19:19 - History of Present Illness INITIAL COMMENTS - FREE TEXT/NARRATIVE: HISTORY AND PHYSICAL: History of present illness: The patient is a 54-year-old man who has end-stage renal disease and is on dialysis Saturday and Saturday and has a right chest wall permacath for dialysis and had in fistula placed 5 days ago, on Saturday, at [facility] for future dialysis and presents with concerns about his surgical wound site. The patient says that yesterday he noticed that it seemed to be a little more swollen and warm and red and he was concerned about it and he did talk to his surgeon yesterday who said that if it persisted he should be evaluated. Today he thought he should be seen and tried to get into his provider at [facility] and none was available for him to get an appointment. The patient says that he has had normal dialysis runs yesterday and is scheduled for tomorrow through his permacath and has had no systemic complaints of fever chills nausea vomiting or shortness of breath. He has no distal hand pain numbness or tingling but he says that when he rotates, supinates and pronates, his forearm he feels like it is tight. There has been no drainage from the site and he has felt a thrill. He is here for evaluation due to concerns about this. The patient is currently on Eliquis therapy. Review of systems: As per history of present illness and below otherwise all systems reviewed and negative. Past medical history: As per history of present illness and as reviewed below otherwise noncontributory. Surgical history: As per history of present illness and as reviewed below otherwise noncontributory. Social history: No reported history of drug or alcohol abuse. Family history: As per history of present illness and as reviewed below otherwise noncontributory. Physical exam: General: Well developed well-nourished man who is nontoxic and speaking clearly and easily. Vital signs are noted by me. HEENT: Atraumatic, normocephalic, negative for conjunctival pallor or scleral icterus, mucous membranes moist, throat clear, neck supple, nontender, trachea midline. Lungs: Clear to auscultation, breath sounds equal bilaterally, chest nontender. At the right chest wall permacath is seen which is clean and dry. Heart: S1S2, regular in rhythm no overt murmurs Abdomen: Soft, nondistended, nontender. NABS Pelvis: Stable nontender. Genitourinary: Deferred. Rectal: Deferred. Extremities: Atraumatic, a foot amputation is seen at the right foot with a clean sock which exhibits no signs of drainage and there is no tenderness here, at the left volar forearm there is an incision seen which has some minimal surrounding erythema and some ecchymosis but is not exhibiting any drainage or fluctuance, the forearm compartment is soft and nontender. There is minimal warmth in the dennis-incisional area but this does not extend throughout the forearm or distally and there is no gross erythema or streaking up the arm. There is a positive thrill. The patient can range of motion at the hand wrist and forearm without defects or deficits. Neurovascular unremarkable. Neuro: Awake, alert, oriented. Cranial nerves II through XII unremarkable. Cerebellum unremarkable. Motor and sensory unremarkable throughout. Exam nonfocal. Diagnostics: Therapeutics: 1935: Case was discussed with Dr. Smith who was on-call for this patient's vascular surgeon, Dr. Lebron. I text at him the pictures with the patient's clearance to do so and he has reviewed those and feels that there is no intervention necessary at this time and just continued conservative management. I told the patient that Dr. Smith feels it is okay and to continue to watch this at home and keep his appointment next week. He was advised to return to ER with any changes or developments. Impression: Surgical site evaluation stable; medical screening exam Definitive disposition and diagnosis as appropriate pending reevaluation and review of above. left arm Pain Score (Numeric/FACES): 4 - Related Data Allergies Allergy/AdvReac Type Severity Reaction Status Date / Time naproxen sodium [From Aleve] Allergy Swelling Verified 07/20/18 11:43 tape Allergy Rash Uncoded 02/25/19 19:18 Home Meds: Home Meds Apixaban [Eliquis] 1 tab PO DAILY 07/20/18 [History] Hydrocodone/Acetaminophen [Hydrocodon-Acetaminophen 5-325] 1 tab PO TID PRN [History] Insulin Aspart [NovoLOG] 1 unit SQ BID 07/20/18 [History] Insulin Detemir [Levemir] 20 unit SQ DAILY 07/20/18 [History] Lisinopril 10 mg PO DAILY 07/20/18 [History] Metoprolol Tartrate 12.5 mg PO DAILY 07/20/18 [History] predniSONE [Prednisone] 1 tab PO DAILY 07/20/18 [History] Past Medical History HEENT History: Reports: Impaired Vision Cardiovascular History: Reports: Blood Clots/VTE/DVT Genitourinary History: Reports: Dialysis, Diabetic Nephropathy Other Genitourinary History: kidney failure from sarcoidosis Musculoskeletal History: Reports: Gout, Other (See Below) Other Musculoskeletal History: partial left foot amputation, recent R all 5 toes amputations. Endocrine/Metabolic History: Reports: Diabetes, Type I Oncologic (Cancer) History: Reports: Other (See Below) Other Oncologic History: sarcoidosis - Infectious Disease History Infectious Disease History: Reports: Chicken Pox, Measles, MRSA, Mumps - Past Surgical History HEENT Surgical History: Reports: Tonsillectomy, Visual Social & Family History - Family History Family Medical History: Noncontributory - Caffeine Use Caffeine Use: Reports: Coffee ED ROS GENERAL - Review of Systems Review Of Systems: ROS reveals no pertinent complaints other than HPI. ED EXAM, SKIN/RASH Exam: See Below (See dictation) Course - Vital Signs Last Recorded V/S: Last Vital Signs Temp 36.3 C 02/25/19 19:13 Pulse 88 02/25/19 19:13 Resp 18 02/25/19 19:13 BP 144/78 H 02/25/19 19:13 Pulse Ox 94 L 02/25/19 19:13 Departure - Departure Time of Disposition: 19:45 Disposition: Home, Self-Care 01 Condition: Good Clinical Impression: Encounter for postoperative wound check - Discharge Information Referrals: Raul Lynn MD [Primary Care Provider] - Forms: ED Department Discharge Additional Instructions: The following information is given to patients seen in the emergency department who are being discharged to home. This information is to outline your options for follow-up care. We provide all patients seen in our emergency department with a follow-up referral. The need for follow-up, as well as the timing and circumstances, are variable depending upon the specifics of your emergency department visit. If you don't have a primary care physician on staff, we will provide you with a referral. We always advise you to contact your personal physician following an emergency department visit to inform them of the circumstance of the visit and for follow-up with them and/or the need for any referrals to a consulting specialist. The emergency department will also refer you to a specialist when appropriate. This referral assures that you have the opportunity for followup care with a specialist. All of these measure are taken in an effort to provide you with optimal care, which includes your followup. Under all circumstances we always encourage you to contact your private physician who remains a resource for coordinating your care. When calling for followup care, please make the office aware that this follow-up is from your recent emergency room visit. If for any reason you are refused follow-up, please contact the [facility] emergency department at and ask to speak to the emergency department charge nurse. [address] [place] [address] These continue to monitor the surgical site and go to her dialysis appointment as scheduled tomorrow. Please try to arrange to keep your appointment for follow -up with your surgeon as scheduled and as we discussed. Return to ER as needed and as discussed. Follow-up with your provider or one of his associates at [facility] for further care and reevaluation as you choose
== END 2019-02-25 19:58 | disposition home or self-care (01) ==
LOC: MW.ED 18:59
DX: Z48.812 Encounter for surgical aftercare following surgery on the circulatory system (principal); E10.22 Type 1 diabetes mellitus with diabetic chronic kidney disease; N18.6 End stage renal disease; Z86.718 Personal history of other venous thrombosis and embolism; Z88.6 Allergy status to analgesic agent; Z91.048 Other nonmedicinal substance allergy status; Z79.01 Long term (current) use of anticoagulants; Z99.2 Dependence on renal dialysis; Z79.4 Long term (current) use of insulin
CPT/HCPCS: 99282

== ENCOUNTER 2019-09-18 22:42 | Emergency (ER) | payer SELFPAY ==
[2019-09-18] MEDS ORDERED: Sodium Chloride 0.9% 2.5 ML Syringe FLUSH PRN (23:15)
[2019-09-18] MEDS ORDERED: Sodium Chloride 0.9% 10 ML SDV IV PRN (23:15)
[2019-09-18] MEDS ORDERED: Sodium Chloride 0.9% 10 ML Syringe FLUSH PRN (23:15)
[2019-09-19 00:04] LABS: CARBON DIOXIDE,CO2 26.7 mmol/L (21.0-32.0); POTASSIUM,K 4.5 mmol/L (3.5-5.1)
--- NOTE | 2019-09-19 00:54 | EDM.PDOC ---
ED HPI GENERAL MEDICAL PROBLEM - General Chief Complaint: Lower Extremity Injury/Pain Stated Complaint: RIGHT LEG INJURY Time Seen by Provider: 09/18/19 23:30 Source of Information: Reports: Patient History Limitations: Reports: No Limitations - History of Present Illness INITIAL COMMENTS - FREE TEXT/NARRATIVE: 54-year-old male with past medical history of ESRD on dialysis, prior DVT presenting with leg pain and swelling. Patient reports a 1 day history of pain and swelling to the medial aspect of the right leg in the right thigh. No history of associated trauma. Denies any chest discomfort or shortness of breath. Last dialysis run was yesterday, patient reports no issues. Denies any fever, chills, erythema. No other complaints voiced. Right Leg Pain Score (Numeric/FACES): 7 - Related Data Allergies Allergy/AdvReac Type Severity Reaction Status Date / Time naproxen sodium [From Aleve] Allergy Swelling Verified 09/18/19 22:52 tape Allergy Rash Uncoded 09/18/19 22:52 Home Meds: Home Meds Apixaban [Eliquis] 0.5 tab PO DAILY 07/20/18 [History] Hydrocodone/Acetaminophen [Hydrocodone-Acetamin 5-325 mg] 1 tab PO TID PRN 07/20 [History] Insulin Aspart [NovoLOG] 1 unit SQ BID 07/20/18 [History] Insulin Detemir [Levemir] 14 unit SQ DAILY 07/20/18 [History] Lisinopril 10 mg PO DAILY 07/20/18 [History] Metoprolol Tartrate 12.5 mg PO DAILY 07/20/18 [History] predniSONE [Prednisone] 1 tab PO DAILY 07/20/18 [History] Past Medical History HEENT History: Reports: Impaired Vision Cardiovascular History: Reports: Blood Clots/VTE/DVT Genitourinary History: Reports: Dialysis, Diabetic Nephropathy Other Genitourinary History: kidney failure from sarcoidosis Musculoskeletal History: Reports: Gout, Other (See Below) Other Musculoskeletal History: partial left foot amputation, recent R all 5 toes amputations. Endocrine/Metabolic History: Reports: Diabetes, Type I Oncologic (Cancer) History: Reports: Other (See Below) Other Oncologic History: sarcoidosis - Infectious Disease History Infectious Disease History: Reports: None - Past Surgical History HEENT Surgical History: Reports: Tonsillectomy, Visual Other Musculoskeletal Surgeries/Procedures:: port acces Social & Family History - Family History Family Medical History: Noncontributory - Tobacco Use Smoking Status *Q: Former Smoker Used Tobacco, but Quit: Yes Month/Year Tobacco Last Used: 2016 - Caffeine Use Caffeine Use: Reports: Coffee, Soda, Tea - Recreational Drug Use Recreational Drug Use: No Review of Systems - Review of Systems Review Of Systems: See Below Constitutional: Denies: Chills, Fever Eyes: Reports: No Symptoms Ears: Reports: No Symptoms Nose: Reports: No Symptoms Mouth/Throat: Reports: No Symptoms Respiratory: Denies: Shortness of Breath Cardiovascular: Reports: Edema. Denies: Chest Pain GI/Abdominal: Reports: No Symptoms Genitourinary: Reports: No Symptoms Musculoskeletal: Reports: Leg Pain Skin: Denies: Rash Neurological: Denies: Headache, Syncope Psychiatric: Reports: No Symptoms ED EXAM, GENERAL - Physical Exam Exam: See Below Free Text/Narrative:: Vital signs reviewed. Nursing notes reviewed. Constitutional: Awake, alert, non-distressed. Head: Normocephalic, atraumatic. Eyes: EOMI, conjunctiva normal, no discharge, no scleral icterus. Ears, Nose, Throat: External ears and ears normal, moist oral mucosa. Cardiovascular: 2+ radial pulse, capillary refill less than 2 seconds. 1+ edema and discomfort to the right lower extremity extending to the thigh with prominent veins. Pulmonary: normal work of breathing, no accessory muscle use. Abdomen/GI: Soft, nontender, nondistended, no guarding or rigidity, no masses. Musculoskeletal: No deformities. Right TMA with clean bandaging applied. Integumentary: Appropriate color for ethnicity, warm, dry, no pallor or jaundice. Tender erythematous areas to the medial and posterior elements of the right lower leg, concerning for cellulitis. Neurologic: Alert, answering questions appropriately, normal speech, no facial droop, moving all extremities well. Psychiatric: Appropriate mood and affect, normal thought process. Course - Vital Signs Text/Narrative:: Patient was hypertensive on arrival but shows no evidence of hypertensive emergency. No chest discomfort, shortness of breath, headache, or visual disturbance. He is afebrile, well-appearing, looks nontoxic. Differential diagnosis includes but is not limited to: DVT, cellulitis, heart failure, nephrotic syndrome, etc. IV access was established and labs were sent. White blood cell count of 13.39. INR and lactate are normal. D-dimer is elevated at 0.56. Metabolic panel shows a creatinine 3.8, glucose of 306, negative troponin. Mild hyponatremia at 133. DVT ultrasound study was inconclusive although the radiologist thought that the pattern display will be more consistent with an older thrombosis of the popliteal and calf veins versus an acute venous thrombosis. While in the emergency department, the patient developed a fever and then at that point met 3 out of 4 SIRS criteria. With the concern for cellulitis, he meets criteria for sepsis. Blood cultures were sent. The patient was given a fluid bolus along with IV vancomycin and IV Ancef. Patient has plans to dialyze later today per his routine dialysis schedule. Unfortunately, we cannot perform hemodialysis at this facility. Initially the patient wanted to leave the emergency department against medical advice, but we were able to have him agree to inpatient hospitalization. We will plan to transfer him to [facility] in [facility] for sepsis due to cellulitis and end- stage renal disease on hemodialysis. EMS transport was significantly delayed throughout the night due to staffing difficulties. The patient remained in the emergency department through the end of my shift awaiting EMS transport to [facility]. [facility]. Last Recorded V/S: Last Vital Signs Temp 38.7 C H 09/19/19 01:05 Pulse 79 09/19/19 03:50 Resp 18 09/19/19 03:50 BP 133/59 L 09/19/19 03:50 Pulse Ox 97 09/19/19 03:50 - Orders/Labs/Meds Orders: Active Orders 24 hr Category Date Time Status CULTURE BLOOD [BC] Stat Lab 09/19/19 01:40 Received CULTURE BLOOD [BC] Stat Lab 09/19/19 05:20 Received Sodium Chloride 0.9% [Normal Saline] Med 09/18/19 23:15 Active 10 ml IV ASDIRECTED PRN Sodium Chloride 0.9% [Saline Flush] Med 09/18/19 23:15 Active 10 ml FLUSH ASDIRECTED PRN Sodium Chloride 0.9% [Saline Flush] Med 09/19/19 01:05 Active 10 ml FLUSH ASDIRECTED PRN Sodium Chloride 0.9% [Saline Flush] Med 09/18/19 23:15 Active 2.5 ml FLUSH ASDIRECTED PRN Sodium Chloride 0.9% [Saline Flush] Med 09/19/19 01:05 Active 2.5 ml FLUSH ASDIRECTED PRN Blood Culture x2 Reflex Set [OM.PC] Stat Ot 09/19/19 01:05 Ordered Peripheral IV Insertion Adult [OM.PC] Stat Ot 09/18/19 23:15 Ordered Saline Lock Insert [OM.PC] Stat Ot 09/19/19 01:05 Ordered Medication Orders Sodium Chloride (Saline Flush) 10 ml FLUSH ASDIRECTED PRN PRN Reason: Keep Vein Open Sodium Chloride (Saline Flush) 2.5 ml FLUSH ASDIRECTED PRN PRN Reason: Keep Vein Open Sodium Chloride (Normal Saline) 10 ml IV ASDIRECTED PRN PRN Reason: IV Use Sodium Chloride (Saline Flush) 10 ml FLUSH ASDIRECTED PRN PRN Reason: Keep Vein Open Sodium Chloride (Saline Flush) 2.5 ml FLUSH ASDIRECTED PRN PRN Reason: Keep Vein Open Labs: Laboratory Tests 09/18/19 09/18/19 09/18/19 Range/Units 23:40 23:40 23:40 WBC (4.0-11.0) K/uL RBC (4.50-5.90) M/uL Hgb (13.0-17.0) g/dL Hct (38.0-50.0) % MCV (80.0-98.0) fL MCH (27.0-32.0) pg MCHC (31.0-37.0) g/dL RDW Std Deviation (28.0-62.0) fl RDW Coeff of Ananth (11.0-15.0) % Plt Count (150-400) K/uL MPV (7.40-12.00) fL Neut % (Auto) (48.0-80.0) % Lymph % (Auto) (16.0-40.0) % [place] % (Auto) (0.0-15.0) % Eos % (Auto) (0.0-7.0) % Baso % (Auto) (0.0-1.5) % Neut # (Auto) (1.4-5.7) K/uL Lymph # (Auto) (0.6-2.4) K/uL [place] # (Auto) (0.0-0.8) K/uL Eos # (Auto) (0.0-0.7) K/uL Baso # (Auto) (0.0-0.1) K/uL INR D-Dimer, Quantitative (0.0-0.50) mg/L FEU Lactate 1.6 (0.20-2.00) mmol/L Sodium 133 L (136-148) mmol/L Potassium 4.5 (3.5-5.1) mmol/L Chloride 96 L (98-107) mmol/L Carbon Dioxide 26.7 (21.0-32.0) mmol/L BUN 48 H (7.0-18.0) mg/dL Creatinine 3.8 H (0.8-1.3) mg/dL Est Cr Clr Drug Dosing 25.11 mL/min Estimated GFR (MDRD) 16.7 ml/min Glucose 306 H (74-106) mg/dL Calcium 9.7 (8.5-10.1) mg/dL Total Bilirubin 0.3 (0.2-1.0) mg/dL AST 13 L (15-37) IU/L ALT 9 L (14-63) IU/L Alkaline Phosphatase 68 (46-116) U/L Troponin I < 0.050 (0.000-0.056) ng/mL Total Protein 7.3 (6.4-8.2) g/dL Albumin 3.1 L (3.4-5.0) g/dL Globulin 4.2 H (2.6-4.0) g/dL Albumin/Globulin Ratio 0.7 L (0.9-1.6) 09/19/19 09/19/19 09/19/19 Range/Units 00:50 00:50 00:50 WBC 13.39 H (4.0-11.0) K/uL RBC 4.06 L (4.50-5.90) M/uL Hgb 10.8 L (13.0-17.0) g/dL Hct 33.6 L (38.0-50.0) % MCV 82.8 (80.0-98.0) fL MCH 26.6 L (27.0-32.0) pg MCHC 32.1 (31.0-37.0) g/dL RDW Std Deviation 44.3 (28.0-62.0) fl RDW Coeff of Ananth 15 (11.0-15.0) % Plt Count 222 (150-400) K/uL MPV 9.00 (7.40-12.00) fL Neut % (Auto) 81.3 H (48.0-80.0) % Lymph % (Auto) 9.3 L (16.0-40.0) % [place] % (Auto) 6.9 (0.0-15.0) % Eos % (Auto) 2.2 (0.0-7.0) % Baso % (Auto) 0.3 (0.0-1.5) % Neut # (Auto) 10.9 H (1.4-5.7) K/uL Lymph # (Auto) 1.2 (0.6-2.4) K/uL [place] # (Auto) 0.9 H (0.0-0.8) K/uL Eos # (Auto) 0.3 (0.0-0.7) K/uL Baso # (Auto) 0.0 (0.0-0.1) K/uL INR 0.97 D-Dimer, Quantitative 0.56 H (0.0-0.50) mg/L FEU Lactate (0.20-2.00) mmol/L Sodium (136-148) mmol/L Potassium (3.5-5.1) mmol/L Chloride (98-107) mmol/L Carbon Dioxide (21.0-32.0) mmol/L BUN (7.0-18.0) mg/dL Creatinine (0.8-1.3) mg/dL Est Cr Clr Drug Dosing mL/min Estimated GFR (MDRD) ml/min Glucose (74-106) mg/dL Calcium (8.5-10.1) mg/dL Total Bilirubin (0.2-1.0) mg/dL AST (15-37) IU/L ALT (14-63) IU/L Alkaline Phosphatase (46-116) U/L Troponin I (0.000-0.056) ng/mL Total Protein (6.4-8.2) g/dL Albumin (3.4-5.0) g/dL Globulin (2.6-4.0) g/dL Albumin/Globulin Ratio (0.9-1.6) Meds: Medications Generic Name Dose Route Start Last Admin Trade Name Freq PRN Reason Stop Dose Admin Sodium Chloride 10 ml 09/18/19 23:15 Saline Flush FLUSH ASDIRECTED PRN Keep Vein Open Sodium Chloride 2.5 ml 09/18/19 23:15 Saline Flush FLUSH ASDIRECTED PRN Keep Vein Open Sodium Chloride 10 ml 09/18/19 23:15 Normal Saline IV ASDIRECTED PRN IV Use Sodium Chloride 10 ml 09/19/19 01:05 Saline Flush FLUSH ASDIRECTED PRN Keep Vein Open Sodium Chloride 2.5 ml 09/19/19 01:05 Saline Flush FLUSH ASDIRECTED PRN Keep Vein Open Discontinued Medications Generic Name Dose Route Start Last Admin Trade Name Freq PRN Reason Stop Dose Admin Acetaminophen 1,000 mg 09/19/19 00:57 09/19/19 01:05 Tylenol Extra Strength PO 09/19/19 00:58 1,000 mg ONETIME ONE Administration Acetaminophen Confirm 09/19/19 01:01 09/19/19 02:52 Tylenol Extra Strength Administered 09/19/19 01:02 Not Given Dose 1,000 mg .ROUTE .STK-MED ONE Sodium Chloride 1,000 mls @ 1,000 mls/hr 09/19/19 01:05 09/19/19 01:18 Normal Saline IV 09/19/19 02:04 1,000 mls/hr .Bolus ONE Administration Vancomycin HCl 1,500 gm/ 250 mls @ 167 mls/hr 09/19/19 01:05 09/19/19 02:51 Dextrose/Water IV 09/19/19 02:34 Not Given ONETIME ONE Cefazolin Sodium/Dextrose 1 gm 50 mls @ 100 mls/hr 09/19/19 01:10 09/19/19 01 :19 / Premix IV 09/19/19 01:39 100 mls/hr ONETIME ONE Administration Vancomycin HCl 1,500 gm/ 500 mls @ 334.014 mls/hr 09/19/19 02:19 09/19/19 02: 51 Dextrose/Water IV 09/19/19 02:34 334.014 mls/hr ONETIME ONE Administration Departure - Departure Time of Disposition: 05:12 Disposition: DC/Tfer to [facility] 02 Clinical Impression: Sepsis due to cellulitis, ESRD on hemodialysis - Discharge Information Referrals: aRul Lynn MD [Primary Care Provider] - Forms: ED Department Discharge Sepsis Event Note - Evaluation Sepsis Screening Result: Possible Sepsis Risk - Focused Exam Vital Signs: Vital Signs Temp Temp Pulse Resp BP Pulse Ox 09/19/19 03:50 79 18 133/59 L 97 09/19/19 01:05 38.7 C H 09/18/19 22:53 37.1 C 93 18 204/106 H Date Exam was Performed: 09/19/19 Time Exam was Performed: 07:03 - My Orders Last 24 Hours: My Active Orders 09/18/19 23:15 Sodium Chloride 0.9% [Normal Saline] 10 ml IV ASDIRECTED PRN Sodium Chloride 0.9% [Saline Flush] 10 ml FLUSH ASDIRECTED PRN Sodium Chloride 0.9% [Saline Flush] 2.5 ml FLUSH ASDIRECTED PRN Peripheral IV Insertion Adult [OM.PC] Stat 09/19/19 01:05 Sodium Chloride 0.9% [Saline Flush] 10 ml FLUSH ASDIRECTED PRN Sodium Chloride 0.9% [Saline Flush] 2.5 ml FLUSH ASDIRECTED PRN Blood Culture x2 Reflex Set [OM.PC] Stat Saline Lock Insert [OM.PC] Stat 09/19/19 01:40 CULTURE BLOOD [BC] Stat 09/19/19 05:20 CULTURE BLOOD [BC] Stat - Assessment/Plan Last 24 Hours: My Active Orders 09/18/19 23:15 Sodium Chloride 0.9% [Normal Saline] 10 ml IV ASDIRECTED PRN Sodium Chloride 0.9% [Saline Flush] 10 ml FLUSH ASDIRECTED PRN Sodium Chloride 0.9% [Saline Flush] 2.5 ml FLUSH ASDIRECTED PRN Peripheral IV Insertion Adult [OM.PC] Stat 09/19/19 01:05 Sodium Chloride 0.9% [Saline Flush] 10 ml FLUSH ASDIRECTED PRN Sodium Chloride 0.9% [Saline Flush] 2.5 ml FLUSH ASDIRECTED PRN Blood Culture x2 Reflex Set [OM.PC] Stat Saline Lock Insert [OM.PC] Stat 09/19/19 01:40 CULTURE BLOOD [BC] Stat 09/19/19 05:20 CULTURE BLOOD [BC] Stat
[2019-09-19] MEDS ORDERED: Acetaminophen 500 MG Tab PO ONE (00:57)
[2019-09-19] MEDS ORDERED: Acetaminophen 500 MG Tab ONE (01:01)
[2019-09-19] MEDS ORDERED: DEXTROSE 5% IV ONE ×4 (01:05→02:19)
[2019-09-19] MEDS ORDERED: WATER IV ONE ×4 (01:05→02:19)
[2019-09-19] MEDS ORDERED: Sodium Chloride 0.9% 2.5 ML Syringe FLUSH PRN (01:05)
[2019-09-19] MEDS ORDERED: VANCOMYCIN IV ONE ×4 (01:05→02:19)
[2019-09-19] MEDS ORDERED: Sodium Chloride 0.9% 1,000 ML IV ONE (01:05)
[2019-09-19] MEDS ORDERED: Sodium Chloride 0.9% 10 ML Syringe FLUSH PRN (01:05)
[2019-09-19] MEDS ORDERED: ceFAZolin 1 GM in Premix Bag 1 BAG IV ONE (01:10)
--- NOTE | 2019-09-19 01:32 | US ---
INDICATION: Leg pain and swelling TECHNIQUE: Ultrasound venous duplex lower right extremity. Compression venous exam was performed using morris-scale, color Doppler, and spectral Doppler imaging. COMPARISON: None. FINDINGS: The right common femoral and femoral vein show normal compressibility and waveforms. Posterior tibial veins not seen. Popliteal vein is not well seen with some collateral vessels noted in the popliteal fossa.. Right inguinal lymphadenopathy with preservation of the normal architecture suggesting reactive lymph nodes. IMPRESSION: 1. Posterior tibial veins are not seen and the popliteal vein is not well seen although multiple smaller, likely collateral vessels are noted in the popliteal fossa. Acute deep venous thrombosis is possible although this pattern would be more consistent with older thrombosis of the popliteal and calf veins with subsequent formation of popliteal fossa collateral veins. Dictated by Jayden Worthington MD @ Sep 19 2019 1:24AM Signed by Dr. Jayden Worthington @ Sep 19 2019 1:29AM
[2019-09-19 07:34] VITALS: BP 111/52; PULSE 81
[2019-09-19] MEDS ORDERED: Vancomycin 1.5 GM in Dextrose 5% in Water 500 ML IV ONE ×2 (14:00)
[2019-09-21] MEDS ORDERED: Vancomycin 1.5 GM in Dextrose 5% in Water 500 ML IV ONE ×2 (14:00)
== END 2019-09-19 08:10 ==
LOC: MW.ED 22:42
DX: A41.9 Sepsis, unspecified organism (principal); L03.115 Cellulitis of right lower limb; E10.22 Type 1 diabetes mellitus with diabetic chronic kidney disease; N18.6 End stage renal disease; M10.9 Gout, unspecified; E10.21 Type 1 diabetes mellitus with diabetic nephropathy; Z87.891 Personal history of nicotine dependence; Z99.2 Dependence on renal dialysis; Z79.4 Long term (current) use of insulin; Z79.01 Long term (current) use of anticoagulants; Z79.899 Other long term (current) drug therapy; Z91.048 Other nonmedicinal substance allergy status; Z88.8 Allergy status to other drugs, medicaments and biological substances
CPT/HCPCS: 36415; 80053; 83605; 84484; 85025; 85379; 85610; 87040; 93971; 96361; 96365; 96366; 96367; 99285; A9270; J0690; J3370; J7030; J7060; 99284

== ENCOUNTER 2020-01-25 07:18 | Emergency (ER) | payer MEDICARE ==
[2020-01-25] MEDS ORDERED: Sodium Chloride 0.9% 1,000 ML IV ONE (07:50)
[2020-01-25] MEDS ORDERED: Sodium Chloride 0.9% 2.5 ML Syringe FLUSH PRN (07:50)
[2020-01-25] MEDS ORDERED: Sodium Chloride 0.9% 10 ML Syringe FLUSH PRN (07:50)
--- NOTE | 2020-01-25 07:53 | EDM.PDOC ---
ED HPI GENERAL MEDICAL PROBLEM - General Chief Complaint: General Stated Complaint: HIGH BLOOD SUGAR, HYPERTENSION Time Seen by Provider: 01/25/20 07:25 - History of Present Illness INITIAL COMMENTS - FREE TEXT/NARRATIVE: History of present illness: Patient presents from day surgery where he was supposed to have a dialysis catheter removed due to an elevated temp and elevated blood pressure patient has not been taking his regular medicines because he is confused as to which ones he is supposed to take he denies any fever chills cough congestion no trouble breathing no chest pain he feels fine he is not sure why he was sent to the emergency department. He has been having elevated blood sugars because he thinks his insulin pen has a broken trigger. Review of systems: As per history of present illness and below otherwise all systems reviewed and negative. Past medical history: As per history of present illness and as reviewed below otherwise noncontributory. Surgical history: As per history of present illness and as reviewed below otherwise noncontributory. Social history: No reported history of drug or alcohol abuse. Family history: As per history of present illness and as reviewed below otherwise nonc ontributory. Physical exam: HEENT: Atraumatic, normocephalic, pupils reactive, negative for conjunctival pallor or scleral icterus, mucous membranes moist, throat clear, neck supple, nontender, trachea midline. Lungs: Clear to auscultation, breath sounds equal bilaterally, chest nontender. Heart: S1S2, regular, negative for clicks, rubs, or JVD. Abdomen: Soft, nondistended, nontender. Negative for masses or hepatosplenomegaly. Negative for costovertebral tenderness. Pelvis: Stable nontender. Genitourinary: Deferred. Rectal: Deferred. Extremities: Atraumatic, negative for cords or calf pain. Neurovascular unremarkable. Neuro: Awake, alert, oriented. Cranial nerves II through XII unremarkable. Cerebellum unremarkable. Motor and sensory unremarkable throughout. Exam nonfocal. Diagnostics: [] Therapeutics: [] Impression: Hyperglycemia hypertension [] Plan: We will check basic labs and treat him for his hyperglycemia as needed. [] Definitive disposition and diagnosis as appropriate pending reevaluation and review of above. - Related Data Allergies Allergy/AdvReac Type Severity Reaction Status Date / Time naproxen sodium [From Aleve] Allergy Blisters Verified 01/25/20 07:37 tape Allergy Rash Uncoded 01/25/20 07:37 Home Meds: Home Meds Lisinopril 2.5 mg PO BEDTIME 07/20/18 [History] Metoprolol Tartrate 12.5 mg PO BID 07/20/18 [History] Levothyroxine [Synthroid] 50 mg PO QAM 11/03/19 [History] Melatonin 10 mg PO BEDTIME PRN 11/03/19 [History] Pregabalin [Lyrica] 150 mg PO ASDIRECTED 11/03/19 [History] Tamsulosin [Flomax] 0.4 mg PO DAILY 11/03/19 [History] Venlafaxine [Effexor] 37.5 mg PO Q48H 11/03/19 [History] prednisoLONE [Millipred] 2.5 mg PO TID 11/03/19 [History] Cyclobenzaprine [Flexeril] 5 mg PO TID PRN 01/19/20 [History] Insulin Glargine,Hum.Rec.Anlog [Lantus Solostar] 14 unit SQ BID 01/19/20 [History] Insulin Lispro [HumaLOG] 10 unit SQ TIDMEALS 01/19/20 [History] atorvaSTATin Calcium [Atorvastatin Calcium] 20 mg PO BEDTIME 01/19/20 [History] Acetaminophen/Diphenhydramine [Tylenol Pm Ex-Strength Caplet] 1 each PO BEDTIME 01/25/20 [History] Doxycycline Hyclate 100 mg PO BID 01/25/20 [History] Ferrous Sulfate 325 mg PO DAILY 01/25/20 [History] Insulin Glulisine [Apidra Solostar] ml INJECT ASDIRECTED 01/25/20 [History] Past Medical History HEENT History: Reports: Impaired Vision, Other (See Below) Other HEENT History: uses reading glasses, is blind in right eye Cardiovascular History: Reports: Blood Clots/VTE/DVT, High Cholesterol Other Cardiovascular History: hx of DVT right leg - 2 years ago- takes Eliquis Gastrointestinal History: Reports: GERD, Hiatal Hernia Genitourinary History: Reports: Renal Disease Other Genitourinary History: kidney failure from sarcoidosis Musculoskeletal History: Reports: Fracture Other Musculoskeletal History: hx of fx fingers and ribs Endocrine/Metabolic History: Reports: Hypothyroidism, IDDM, Obesity/BMI 30+ Hematologic History: Reports: Anticoagulation Therapy Immunologic History: Reports: Immunosuppression Oncologic (Cancer) History: Reports: Other (See Below) Other Oncologic History: sarcoidosis Dermatologic History: Reports: Other (See Below) Other Dermatologic History: has open draining wound on right foot - Infectious Disease History Infectious Disease History: Reports: Chicken Pox, Measles - Past Surgical History Head Surgeries/Procedures: Reports: None Cardiovascular Surgical History: Reports: Vascular Surgery Other Cardiovascular Surgeries/Procedures: AV fistula inserted and port-a-cath placement Musculoskeletal Surgical History: Reports: Other (See Below) Other Musculoskeletal Surgeries/Procedures:: Amputation of 7 toes, release of nerve intrapment in right arm-elbow Social & Family History - Family History Family Medical History: Noncontributory - Tobacco Use Smoking Status *Q: Former Smoker Used Tobacco, but Quit: Yes Month/Year Tobacco Last Used: 2016 - Caffeine Use Caffeine Use: Reports: Coffee, Soda, Tea - Recreational Drug Use Recreational Drug Use: No ED ROS GENERAL - Review of Systems Review Of Systems: See Below ED EXAM, GENERAL - Physical Exam Exam: See Below Course - Vital Signs Text/Narrative:: Patient is feeling better after medications he will be discharged home he received regular insulin and his normal Lantus dose here he states he has his prescriptions available at the pharmacy so that he can take his insulin he is to follow-up with primary care. Last Recorded V/S: Last Vital Signs Temp 35.8 C L 01/25/20 09:42 Pulse 84 01/25/20 11:01 Resp 18 01/25/20 09:42 BP 169/90 H 01/25/20 11:01 Pulse Ox 97 01/25/20 11:01 - Orders/Labs/Meds Orders: Active Orders 24 hr Category Date Time Status Blood Glucose Check, Bedside [RC] ONETIME Care 01/25/20 10:06 Active Sodium Chloride 0.9% [Saline Flush] Med 01/25/20 07:50 Active 10 ml FLUSH ASDIRECTED PRN Sodium Chloride 0.9% [Saline Flush] Med 01/25/20 07:50 Active 2.5 ml FLUSH ASDIRECTED PRN Saline Lock Insert [OM.PC] Stat Oth 01/25/20 07:50 Ordered Medication Orders Sodium Chloride (Saline Flush) 10 ml FLUSH ASDIRECTED PRN PRN Reason: Keep Vein Open Last Admin: 01/25/20 08:03 Dose: 10 ml Documented by: ZOILA Sodium Chloride (Saline Flush) 2.5 ml FLUSH ASDIRECTED PRN PRN Reason: Keep Vein Open Last Admin: 01/25/20 08:03 Dose: 2.5 ml Documented by: ZOILA Labs: Laboratory Tests 01/25/20 01/25/20 01/25/20 Range/Units 08:01 08:01 08:01 WBC 7.51 (4.0-11.0) K/uL RBC 3.78 L (4.50-5.90) M/uL Hgb 10.0 L (13.0-17.0) g/dL Hct 31.4 L (38.0-50.0) % MCV 83.1 (80.0-98.0) fL MCH 26.5 L (27.0-32.0) pg MCHC 31.8 (31.0-37.0) g/dL RDW Std Deviation 45.1 (28.0-62.0) fl RDW Coeff of Ananth 15 (11.0-15.0) % Plt Count 222 (150-400) K/uL MPV 8.70 (7.40-12.00) fL Neut % (Auto) 73.6 (48.0-80.0) % Lymph % (Auto) 15.3 L (16.0-40.0) % [place] % (Auto) 7.9 (0.0-15.0) % Eos % (Auto) 2.9 (0.0-7.0) % Baso % (Auto) 0.3 (0.0-1.5) % Neut # (Auto) 5.5 (1.4-5.7) K/uL Lymph # (Auto) 1.2 (0.6-2.4) K/uL [place] # (Auto) 0.6 (0.0-0.8) K/uL Eos # (Auto) 0.2 (0.0-0.7) K/uL Baso # (Auto) 0.0 (0.0-0.1) K/uL Nucleated RBC % 0.0 /100WBC Nucleated RBCs # 0 K/uL VBG pH 7.52 H (7.31-7.41) VBG pCO2 33 L (35-45) mmHG VBG pO2 63 H (30-40) mmHG VBG HCO3 27 (22-30) mEq/L VBG Total CO2 24 L (41-51) mmol/L VBG Base Excess 3.6 H (-3.0-3.0) Sodium 131 L (136-148) mmol/L Potassium 3.0 L (3.5-5.1) mmol/L Chloride 96 L (98-107) mmol/L Carbon Dioxide 25.7 (21.0-32.0) mmol/L BUN 29 H (7.0-18.0) mg/dL Creatinine 4.3 H (0.8-1.3) mg/dL Est Cr Clr Drug Dosing 22.57 mL/min Estimated GFR (MDRD) 14.4 ml/min Glucose 420 H (74-106) mg/dL POC Glucose (60-110) mg/dL Calcium 8.4 L (8.5-10.1) mg/dL Total Bilirubin 0.4 (0.2-1.0) mg/dL AST 9 L (15-37) IU/L ALT 18 (14-63) IU/L Alkaline Phosphatase 68 (46-116) U/L Total Protein 6.8 (6.4-8.2) g/dL Albumin 2.5 L (3.4-5.0) g/dL Globulin 4.3 H (2.6-4.0) g/dL Albumin/Globulin Ratio 0.6 L (0.9-1.6) 01/25/20 01/25/20 Range/Units 08:09 10:18 WBC (4.0-11.0) K/uL RBC (4.50-5.90) M/uL Hgb (13.0-17.0) g/dL Hct (38.0-50.0) % MCV (80.0-98.0) fL MCH (27.0-32.0) pg MCHC (31.0-37.0) g/dL RDW Std Deviation (28.0-62.0) fl RDW Coeff of Ananth (11.0-15.0) % Plt Count (150-400) K/uL MPV (7.40-12.00) fL Neut % (Auto) (48.0-80.0) % Lymph % (Auto) (16.0-40.0) % [place] % (Auto) (0.0-15.0) % Eos % (Auto) (0.0-7.0) % Baso % (Auto) (0.0-1.5) % Neut # (Auto) (1.4-5.7) K/uL Lymph # (Auto) (0.6-2.4) K/uL [place] # (Auto) (0.0-0.8) K/uL Eos # (Auto) (0.0-0.7) K/uL Baso # (Auto) (0.0-0.1) K/uL Nucleated RBC % /100WBC Nucleated RBCs # K/uL VBG pH (7.31-7.41) VBG pCO2 (35-45) mmHG VBG pO2 (30-40) mmHG VBG HCO3 (22-30) mEq/L VBG Total CO2 (41-51) mmol/L VBG Base Excess (-3.0-3.0) Sodium (136-148) mmol/L Potassium (3.5-5.1) mmol/L Chloride (98-107) mmol/L Carbon Dioxide (21.0-32.0) mmol/L BUN (7.0-18.0) mg/dL Creatinine (0.8-1.3) mg/dL Est Cr Clr Drug Dosing mL/min Estimated GFR (MDRD) ml/min Glucose (74-106) mg/dL POC Glucose 371 H 376 H (60-110) mg/dL Calcium (8.5-10.1) mg/dL Total Bilirubin (0.2-1.0) mg/dL AST (15-37) IU/L ALT (14-63) IU/L Alkaline Phosphatase (46-116) U/L Total Protein (6.4-8.2) g/dL Albumin (3.4-5.0) g/dL Globulin (2.6-4.0) g/dL Albumin/Globulin Ratio (0.9-1.6) Meds: Medications Generic Name Dose Route Start Last Admin Trade Name Freq PRN Reason Stop Dose Admin Sodium Chloride 10 ml 01/25/20 07:50 01/25/20 08:03 Saline Flush FLUSH 10 ml ASDIRECTED PRN Administration Keep Vein Open Sodium Chloride 2.5 ml 01/25/20 07:50 01/25/20 08:03 Saline Flush FLUSH 2.5 ml ASDIRECTED PRN Administration Keep Vein Open Discontinued Medications Generic Name Dose Route Start Last Admin Trade Name Harrison PRN Reason Stop Dose Admin Sodium Chloride 1,000 mls @ 999 mls/hr 01/25/20 07:50 01/25/20 08:03 Normal Saline IV 01/25/20 08:50 999 mls/hr .Bolus ONE Administration Insulin Glargine 14 units 01/25/20 10:42 01/25/20 10:58 Lantus Solostar SUBCUT 01/25/20 10:43 14 unit DAILY ONE Administration Insulin Human Regular 12 unit 01/25/20 09:04 01/25/20 09:40 Novolin R SUBCUT 01/25/20 09:05 12 units ONETIME ONE Administration Protocol Departure - Departure Time of Disposition: 11:29 Disposition: Home, Self-Care 01 Condition: Good Clinical Impression: Hyperglycemia - Discharge Information *PRESCRIPTION DRUG MONITORING PROGRAM REVIEWED*: Not Applicable *COPY OF PRESCRIPTION DRUG MONITORING REPORT IN PATIENT JACKLYN: Not Applicable Instructions: Hyperglycemia Referrals: PCP,None [Primary Care Provider] - Forms: ED Department Discharge Additional Instructions: The following information is given to patients seen in the emergency department who are being discharged to home. This information is to outline your options for follow-up care. We provide all patients seen in our emergency department with a follow-up referral. The need for follow-up, as well as the timing and circumstances, are variable depending upon the specifics of your emergency department visit. If you don't have a primary care physician on staff, we will provide you with a referral. We always advise you to contact your personal physician following an emergency department visit to inform them of the circumstance of the visit and for follow-up with them and/or the need for any referrals to a consulting specialist. The emergency department will also refer you to a specialist when appropriate. This referral assures that you have the opportunity for follow-up care with a specialist. All of these measure are taken in an effort to provide you with optimal care, which includes your follow-up. Under all circumstances we always encourage you to contact your private phys ician who remains a resource for coordinating your care. When calling for follow-up care, please make the office aware that this follow-up is from your recent emergency room visit. If for any reason you are refused follow-up, please contact the [facility] Emergency Department at and asked to speak to the emergency department charge nurse. Sepsis Event Note (ED) - Evaluation Sepsis Screening Result: No Definite Risk - Focused Exam Vital Signs: Vital Signs Temp Pulse Resp BP Pulse Ox 01/25/20 11:01 84 169/90 H 97 01/25/20 09:42 35.8 C L 88 18 173/88 H 95 01/25/20 07:38 36.6 C 92 18 157/90 H 97 - My Orders Last 24 Hours: My Active Orders 01/25/20 07:50 Sodium Chloride 0.9% [Saline Flush] 10 ml FLUSH ASDIRECTED PRN Sodium Chloride 0.9% [Saline Flush] 2.5 ml FLUSH ASDIRECTED PRN Saline Lock Insert [OM.PC] Stat 01/25/20 10:06 Blood Glucose Check, Bedside [RC] ONETIME - Assessment/Plan Last 24 Hours: My Active Orders 01/25/20 07:50 Sodium Chloride 0.9% [Saline Flush] 10 ml FLUSH ASDIRECTED PRN Sodium Chloride 0.9% [Saline Flush] 2.5 ml FLUSH ASDIRECTED PRN Saline Lock Insert [OM.PC] Stat 01/25/20 10:06 Blood Glucose Check, Bedside [RC] ONETIME
[2020-01-25 08:32] LABS: CARBON DIOXIDE,CO2 25.7 mmol/L (21.0-32.0)
[2020-01-25] MEDS ORDERED: Insulin Regular, Human 100 Units/ML 10 ML Vial SUBCUT ONE (09:04)
[2020-01-25] MEDS ORDERED: Insulin Glargine,Human Rec. Analog 100 Units/ML 3 ML Pen SUBCUT ONE (10:42)
[2020-01-25 11:32] VITALS: BP 178/92; PULSE 89
== END 2020-01-25 11:36 | disposition home or self-care (01) ==
LOC: MW.ED 07:18
DX: I10 Essential (primary) hypertension (principal); E11.65 Type 2 diabetes mellitus with hyperglycemia; E78.00 Pure hypercholesterolemia, unspecified; K21.9 Gastro-esophageal reflux disease without esophagitis; E03.9 Hypothyroidism, unspecified; E66.9 Obesity, unspecified; Z68.36 Body mass index [BMI] 36.0-36.9, adult; Z79.01 Long term (current) use of anticoagulants; Z86.718 Personal history of other venous thrombosis and embolism; Z87.891 Personal history of nicotine dependence; Z88.8 Allergy status to other drugs, medicaments and biological substances; Z91.048 Other nonmedicinal substance allergy status; Z79.4 Long term (current) use of insulin; Z79.899 Other long term (current) drug therapy; Z45.2 Encounter for adjustment and management of vascular access device; E11.9 Type 2 diabetes mellitus without complications; Z53.9 Procedure and treatment not carried out, unspecified reason; Z68.41 Body mass index [BMI] 40.0-44.9, adult
CPT/HCPCS: 36415; 80053; 82803; 82962; 85025; 96360; 99284; J1815; J7030; 99283

== ENCOUNTER → 2020-01-25 | Day surgery (SDC) | payer MEDICARE ==
[~2020-01-25] MED LIST: Lactated Ringers 1,000 ML IV SCH
[2020-01-25 08:31] VITALS: BP 190/93; PULSE 98
== END ==
LOC: MW.SDS 06:32
PROVIDERS: ATTEND Surgery
DX: Z45.2 Encounter for adjustment and management of vascular access device (principal); Z87.891 Personal history of nicotine dependence; E11.9 Type 2 diabetes mellitus without complications; E66.9 Obesity, unspecified; E03.9 Hypothyroidism, unspecified; Z53.9 Procedure and treatment not carried out, unspecified reason; Z68.41 Body mass index [BMI] 40.0-44.9, adult
CPT/HCPCS: 82962

== ENCOUNTER 2020-02-07 10:34 | Emergency (ER) | payer MEDICARE, OTHER ==
--- NOTE | 2020-02-07 10:52 | EDM.PDOC ---
<Ji Hein - Last Filed: 02/07/20 11:42> ED HPI GENERAL MEDICAL PROBLEM - General Stated Complaint: BLOODY STOOLS Time Seen by Provider: 02/07/20 10:34 Guts Pain Score (Numeric/FACES): 3 - Related Data Allergies Allergy/AdvReac Type Severity Reaction Status Date / Time naproxen sodium [From Aleve] Allergy Blisters Verified 02/07/20 11:00 tape Allergy Rash Uncoded 02/07/20 11:00 Home Meds: Home Meds Lisinopril 2.5 mg PO BEDTIME 07/20/18 [History] Metoprolol Tartrate 12.5 mg PO BID 07/20/18 [History] Levothyroxine [Synthroid] 50 mg PO QAM 11/03/19 [History] Melatonin 10 mg PO BEDTIME PRN 11/03/19 [History] Pregabalin [Lyrica] 150 mg PO ASDIRECTED 11/03/19 [History] Tamsulosin [Flomax] 0.4 mg PO DAILY 11/03/19 [History] Venlafaxine [Effexor] 37.5 mg PO Q48H 11/03/19 [History] prednisoLONE [Millipred] 2.5 mg PO TID 11/03/19 [History] Cyclobenzaprine [Flexeril] 5 mg PO TID PRN 01/19/20 [History] Insulin Glargine,Hum.Rec.Anlog [Lantus Solostar] 14 unit SQ BID 01/19/20 [History] Insulin Lispro [HumaLOG] 10 unit SQ TIDMEALS 01/19/20 [History] atorvaSTATin Calcium [Atorvastatin Calcium] 20 mg PO BEDTIME 01/19/20 [History] Acetaminophen/Diphenhydramine [Tylenol Pm Ex-Strength Caplet] 1 each PO BEDTIME 01/25/20 [History] Doxycycline Hyclate 100 mg PO BID 01/25/20 [History] Ferrous Sulfate 325 mg PO DAILY 01/25/20 [History] Insulin Glulisine [Apidra Solostar] ml INJECT ASDIRECTED 01/25/20 [History] #1 Interpretation EKG Interpretation Comments: 12 lead EKG interpretation Obtained: February 07, 2020 at 11:10 AM Rhythm: Sinus tachycardia Rate: 116 [place]: Right axis deviation Intervals: 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 No acute ischemic changes. EKG auto interpretation suggest pericarditis however I feel that this is wandering baseline plus bundle branch block pattern. Last EKG on file was April 2018. Right bundle branch block was present at that time, no posterior fascicular block was noted Course - Re-Assessments/Exams Free Text/Narrative Re-Assessment/Exam: 02/07/20 11:42 Attending physician note I have seen and evaluated the patient with the advanced practice provider. Chief Complaint: Abdominal plain and lower GI bleed Brief HPI: This 55-year-old male with a past medical history of end-stage renal disease on hemodialysis (T, TH, SAT), hypertension, peripheral vascular disease with arterial occlusion right lower extremity causing gangrene of the foot requiring amputation of the toes, hypertension, presents emergency department complaining of right upper quadrant abdominal pain that is moderately severe, the feeling of tenesmus, and diarrhea resulting in bright red blood. No previous melena. Patient is anticoagulated and states that he takes Eliquis secondary to previous vascular thromboembolic events. He did not miss dialysis yesterday. He rates his pain to be moderate to severe. Denies fever. No other associated signs or symptoms. No other modifying, aggravating or alleviating factors. ROS: Reviewed and agree Focused Exam: VITAL SIGNS: Reviewed. GENERAL: Awake, conversant, GCS 15,, pale, appears moderately ill, complains of abdominal pain HEAD: No visible signs of trauma EYES: Pupils equal, EOM grossly intact mild pallor is present EARS: Hearing grossly intact. MOUTH: No visible lesions NECK: Appears supple CHEST: No adventitious breath sounds, mild tachypnea, no accessory muscle use CARDIAC: Regular rhythm tachycardic ABDOMEN: Soft, tender right upper quadrant, benign exam NEUROLOGIC EXAM: Awake and Alert, non-focal SKIN: No visible rashes EXTREMITIES: No deformities noted VASCULAR: Appears well perfused My sahu exam: Procedure Note: Point of Care Bedside Echocardiogram (limited echo) Self-performed and read Location: Chest Indication: Trauma Probe: phased array - Cardiac contour identified - No obvious wall motion abnormalities - No obvious cardiomegaly - No pericardial fluid seen. No Tamponade Impression: 1. No tamponade or effusion Signed by: Ji Hein MD LIMITED ABDOMINAL ULTRASOUND: Self-performed and read; Indication: Trauma and / or Hypotension 1. No Free fluid seen in the hepatorenal space (Morison's Pouch) 2. No Free Fluid seen in the suprapubic region (Pelvis) 3. No Free Fluid seen in the splenorenal space (LUQ) FINDINGS: No evidence of intraperitoneal free fluid IMPRESSION: Negative FAST exam. Signed by Ji Hein MD Procedure Note: Chest/Pulmonary Ultrasound Self-performed and read; Location: Chest - Bilateral anterior Indication: Evaluation for Trauma Evaluation Probe: phased array - Normal sliding sign - Normal comet tails - Normal pleural line Impression: 1. No effusion/pulmonary edema Signed by Ji Hein MD Procedure Note: Limited Abdominal Vascular Ultrasound for Evaluation of IVC Self performed and read; Location: epigastric/RUQ Indication: Evaluation of volume status Probe: Phased array curvilinear #1: IVC seen, diameter recorded #2: IVC collapse with inspiration 50% or greater #3: Shape was oval, normal Impression: Euvolemia/hypovolemia Signed by: Ji Hein MD Procedure: Limited Abdominal Ultrasound - Right Upper Quadrant Performed and interpreted by me; images recorded and archived Indication: Right upper quadrant/epigastric pain/flank pain Findings: -No gallstones -No pericholecystic fluid -Abnormal gallbladder wall thickness -Common Bile duct not observed Interpretation: Thickened gallbladder wall with tenderness and sonographic Thompson Signed by Ji Hein M.D. Procedure Note: Physician placed IV Due to difficult or critical IV access situation I have placed an IV for treatment and circulatory access. Location: Right antecubital fossa, 20-gauge angiocatheter Complications: None, second attempt PROCEDURE: Ultrasound guidance of needle placement Indication: Guidance of needle for procedure Performed and interpreted by myself Findings: 1. Targeted structure identified 2. Distance from the skin noted 3. Surrounding vascular and nerve structures noted Interpretation: Ultrasound guidance of needle to increase safety and accuracy of procedure. Signed by Ji Hein M.D. Critical Care Note: The patient presented in critical status due to severe sepsis requiring intravenous antibiotics The patient required rapid exam, decision making, and frequent re-evaluations during their time in the Emergency Department. Total Critical Care time exclusive of all other billable procedure time provided by myself 47 minutes Assessment & Plan: The differential diagnosis would include appendicitis, cholecystitis, pyelonephritis, pancreatitis, mesenteric infarction, diverticulitis, small bowel obstruction, volvulus, and ACS. Dysentery versus lower GI bleed versus bleeding diverticulum. No evidence of small bowel obstruction. Signs of sepsis include elevated lactate and leukocytosis. Empiric antibiotics with antipseudomonal and anti-MRSA coverage. Currently does not need a blood transfusion. Given the high risk features in this patient he will require transfer and admission for IV antibiotics, gastroenterology consultation, and potentially blood transfusion. Currently multiple hospitals in the [facility] are on bypass. We will expeditiously find a place for him to receive higher level of care treatment that he requires. Departure - Departure Disposition: DC/Tfer to [facility] 02 Clinical Impression: Hyperglycemia GI bleed Qualifiers: GI bleed type/associated pathology: unspecified gastrointestinal hemorrhage type Qualified Code(s): K92.2 - Gastrointestinal hemorrhage, unspecified Sepsis Qualifiers: Sepsis type: sepsis due to unspecified organism Sepsis acute organ dysfunction status: unspecified Qualified Code(s): A41.9 - Sepsis, unspecified organism Hematuria Qualifiers: Hematuria type: unspecified type Qualified Code(s): R31.9 - Hematuria, unspecified - Discharge Information Referrals: Raul Lynn MD [Primary Care Provider] - <Praveena Bustillo E - Last Filed: 02/07/20 13:46> ED HPI GENERAL MEDICAL PROBLEM - General Source of Information: Reports: Patient History Limitations: Reports: No Limitations - History of Present Illness INITIAL COMMENTS - FREE TEXT/NARRATIVE: HISTORY AND PHYSICAL: History of present illness: Patient is a 55-year-old male who presents to the emergency room with complaints of bloody stools. He reports he was woken up at 4 AM this morning with the sensation of needing to have a bowel movement. When he went to the bathroom he noticed copious amounts of bloody stool. Since that time he has had several additional bloody stools. Complaining of generalized abdominal pain, tender to the epigastrium. Complaining of nausea and vomiting, no blood in his emesis. Patient does have renal disease and receives dialysis, dialyzed yesterday (//Sat). Most recently he had a port removed on 01/25/2020 as they were concerned it could be infected due to fevers etc.... Patient denies any fever, chills, headache, change in vision, syncope or near syncope. Denies any chest pain, back pain, shortness of breath or cough. Denies any constipation or dysuria. Still makes urine, small amount. Patient has been eating and drinking appropriately. Past medical history of diabetes, insulin-dependent. Renal disease, GERD, hiatal hernia, sarcoidosis and DVT -previous notes report he is on Eliquis (patient is unsure if he is or isn't still taking this). Review of systems: As per history of present illness and below otherwise all systems reviewed and negative. Past medical history: As per history of present illness and as reviewed below otherwise noncontributory. Surgical history: As per history of present illness and as reviewed below otherwise noncontributory. Social history: See social history for further information Family history: As per history of present illness and as reviewed below otherwise noncontributory. Physical exam: General: Well developed and well nourished 55 year old male. Alert and orientated x 3. Nontoxic in appearance and in no acute distress. Vital signs are stable and have been reviewed by me. Nursing notes were reviewed. HEENT: Atraumatic, normocephalic, pupils equal and reactive bilaterally, negative for conjunctival pallor or scleral icterus, mucous membranes moist, TMs normal bilaterally, throat clear, neck supple, nontender, trachea midline. No drooling or trismus noted. No meningeal signs. No hot potato voice noted. Lungs: Slightly diminished to auscultation, breath sounds equal bilaterally, chest nontender. Port in right upper chest wall. Normal work of breathing, no accessory muscles used. Heart: S1S2, regular rate and rhythm without overt murmur Abdomen: Soft, obese, RUQ/LUQ and epigastric tenderness with palpation. Negative for masses or hepatosplenomegaly. Negative for costovertebral tenderness. Pelvis: Stable nontender. Rectal: Good rectal tone. Hemoccult positive. Phillip blood noted in stool. Skin: Pale. Port to right upper chest wall. Partial right foot amputation with an open sore to bottom of foot. Otherwise skin is intact, warm, dry. No lesions or rashes noted. Extremities: Moves all extremities per self without difficulty or deficits. Partial amputation of right foot (see SKIN for details). He negative for cords or calf pain. Neurovascular unremarkable. Neuro: Awake, alert, oriented. Cranial nerves II through XII unremarkable. Cerebellum unremarkable. Motor and sensory unremarkable throughout. Exam nonfocal. Psychiatric: Mood and affect are appropriate. Normal thought process. Answering questions appropriately. Notes: Patient meets sepsis criteria; [facility] was called. Dr Hein was involved in this case and has seen this patient as well. Bedside ultrasound was done by Dr Hein. 1145: [facility] called. Spoke with Dr Mcwilliams at [place] in [place] - at capacity. 1150: Gay Mukund Clinton at [facility]. 1155: [facility], Dr. Almendarez (hospitalist) has agreed to accept this patient. They are currently at capacity, but do have a patient who is pending discharge. Although they have agreed to accept this patient, [facility] would like to hold the transfer until time of d/c of patient (at [place]) is established. Patient continues to be stable. He is aware of needed of transfer and is agreeable to plan of care. 1315: [facility] center has informed us that the patient's room will be available and we can now transfer patient. Will fly patient due to length of transfer. Both antibiotics completed here in ED. Previously the patient did have 2 IV sites to his left upper extremity, unable to use the right extremity due to his AV shunt. The upper bicep IV site infiltrated with IV fluids (NS) and he does have pain and swelling at the site. Warm compress applied for comfort. IV site was discontinued and we will continue to monitor. Patient has had two separate bloody stools approx 300 mls each; remains vital stable. Diagnostics: CBC, CMP, Lactate, BC x 2, PTT/PT/INR, UA, Stool Studies (Ova/Camp/Shig/Cult), CXR, Therapeutics: Vancomycin 1 gm, Cefepime 2gm, IV fluids Impression: Sepsis Lower GI bleed Hematuria Hyperglycemia Plan: Transfer to higher level of care. Definitive disposition and diagnosis as appropriate pending reevaluation and review of above. Past Medical History HEENT History: Reports: Impaired Vision, Other (See Below) Other HEENT History: uses reading glasses, is blind in right eye Cardiovascular History: Reports: Blood Clots/VTE/DVT, High Cholesterol Other Cardiovascular History: hx of DVT right leg - 2 years ago- takes Eliquis Gastrointestinal History: Reports: GERD, Hiatal Hernia Genitourinary History: Reports: Renal Disease Other Genitourinary History: kidney failure from sarcoidosis Musculoskeletal History: Reports: Fracture Other Musculoskeletal History: hx of fx fingers and ribs Endocrine/Metabolic History: Reports: Hypothyroidism, IDDM, Obesity/BMI 30+ Hematologic History: Reports: Anticoagulation Therapy Immunologic History: Reports: Immunosuppression Oncologic (Cancer) History: Reports: Other (See Below) Other Oncologic History: sarcoidosis Dermatologic History: Reports: Other (See Below) Other Dermatologic History: has open draining wound on right foot - Infectious Disease History Infectious Disease History: Reports: Chicken Pox, Measles - Past Surgical History Head Surgeries/Procedures: Reports: None Cardiovascular Surgical History: Reports: Vascular Surgery Other Cardiovascular Surgeries/Procedures: AV fistula inserted and port-a-cath placement Musculoskeletal Surgical History: Reports: Other (See Below) Other Musculoskeletal Surgeries/Procedures:: Amputation of 7 toes, release of nerve intrapment in right arm-elbow Social & Family History - Family History Family Medical History: Noncontributory - Caffeine Use Caffeine Use: Reports: Coffee, Soda, Tea ED ROS GENERAL - Review of Systems Review Of Systems: Comprehensive ROS is negative, except as noted in HPI. ED EXAM, GI/ABD - Physical Exam Exam: See Below (See dictation) Course - Vital Signs Last Recorded V/S: Last Vital Signs Temp 97.6 F 02/07/20 11:19 Pulse 106 H 02/07/20 13:02 Resp 21 H 02/07/20 13:02 BP 160/94 H 02/07/20 13:02 Pulse Ox 100 02/07/20 12:05 - Orders/Labs/Meds Orders: Active Orders 24 hr Category Date Time Status EKG Documentation Completion [RC] STAT Care 02/07/20 10:53 Active Abdomen Pelvis w Cont [CT] Stat Exams 02/07/20 11:00 Ordered CAMPYLOBACTER AG BY IMMUNO [MREF] Stat Lab 02/07/20 10:48 Received CORONAVIRUS COVID-19 PCR PHL Stat Lab 02/07/20 12:04 Received CULTURE BLOOD [BC] Stat Lab 02/07/20 11:04 Received CULTURE BLOOD [BC] Stat Lab 02/07/20 11:40 Received OVA & PARASITES BY IMMUNOASSAY [MREF] Stat Lab 02/07/20 10:48 Received STOOL CULTURE/SHIGA TOXIN [MREF] Stat Lab 02/07/20 10:48 Received Sodium Chloride 0.9% [Saline Flush] Med 02/07/20 10:56 Active 10 ml FLUSH ASDIRECTED PRN Sodium Chloride 0.9% [Saline Flush] Med 02/07/20 10:56 Active 2.5 ml FLUSH ASDIRECTED PRN Blood Culture x2 Reflex Set [OM.PC] Stat Oth 02/07/20 10:59 Ordered Saline Lock Insert [OM.PC] Stat Oth 02/07/20 10:56 Ordered Medication Orders Sodium Chloride (Saline Flush) 10 ml FLUSH ASDIRECTED PRN PRN Reason: Keep Vein Open Last Admin: 02/07/20 11:46 Dose: 10 ml Documented by: FRANCI Sodium Chloride (Saline Flush) 2.5 ml FLUSH ASDIRECTED PRN PRN Reason: Keep Vein Open Last Admin: 02/07/20 11:46 Dose: 2.5 ml Documented by: FRANCI Labs: Laboratory Tests 02/07/20 02/07/20 02/07/20 Range/Units 10:56 10:56 10:56 WBC 15.63 H (4.0-11.0) K/uL RBC 4.65 (4.50-5.90) M/uL Hgb 12.3 L (13.0-17.0) g/dL Hct 39.5 (38.0-50.0) % MCV 84.9 (80.0-98.0) fL MCH 26.5 L (27.0-32.0) pg MCHC 31.1 (31.0-37.0) g/dL RDW Std Deviation 46.0 (28.0-62.0) fl RDW Coeff of Ananth 15 (11.0-15.0) % Plt Count 364 (150-400) K/uL MPV 9.00 (7.40-12.00) fL Neut % (Auto) 91.8 H (48.0-80.0) % Lymph % (Auto) 2.6 L (16.0-40.0) % [place]edar % (Auto) 4.5 (0.0-15.0) % Eos % (Auto) 1.0 (0.0-7.0) % Baso % (Auto) 0.1 (0.0-1.5) % Neut # (Auto) 14.3 H (1.4-5.7) K/uL Lymph # (Auto) 0.4 L (0.6-2.4) K/uL [place]edar # (Auto) 0.7 (0.0-0.8) K/uL Eos # (Auto) 0.2 (0.0-0.7) K/uL Baso # (Auto) 0.0 (0.0-0.1) K/uL Nucleated RBC % 0.0 /100WBC Nucleated RBCs # 0 K/uL INR APTT (18.6-31.3) SEC Lactate (0.20-2.00) mmol/L Sodium 131 L (136-148) mmol/L Potassium 3.7 (3.5-5.1) mmol/L Chloride 93 L (98-107) mmol/L Carbon Dioxide 24.5 (21.0-32.0) mmol/L BUN 21 H (7.0-18.0) mg/dL Creatinine 4.1 H (0.8-1.3) mg/dL Est Cr Clr Drug Dosing 23.01 mL/min Estimated GFR (MDRD) 15.2 ml/min Glucose 377 H (74-106) mg/dL Calcium 8.8 (8.5-10.1) mg/dL Total Bilirubin 0.7 (0.2-1.0) mg/dL AST 15 (15-37) IU/L ALT 21 (14-63) IU/L Alkaline Phosphatase 120 H (46-116) U/L Troponin I < 0.050 (0.000-0.056) ng/mL Total Protein 8.3 H (6.4-8.2) g/dL Albumin 2.5 L (3.4-5.0) g/dL Globulin 5.8 H (2.6-4.0) g/dL Albumin/Globulin Ratio 0.4 L (0.9-1.6) Lipase 206 (73-393) U/L Urine Color Urine Appearance Urine pH (5.0-8.0) Ur Specific [place] (1.001-1.035) Urine Protein (NEGATIVE) mg/dL Urine Glucose (UA) (NEGATIVE) mg/dL Urine Ketones (NEGATIVE) mg/dL Urine Occult Blood (NEGATIVE) Urine Nitrite (NEGATIVE) Urine Bilirubin (NEGATIVE) Urine Urobilinogen (<2.0) EU/dL Ur Leukocyte Esterase (NEGATIVE) U Hyaline Cast (Auto) (0-2/LPF) Urine RBC (0-2/HPF) Urine WBC (0-5/HPF) Ur Squamous Epith Cells Urine Bacteria (NEGATIVE) Fine Granular Casts (NEGATIVE) WBC Casts (NEGATIVE) Urine Mucus (NONE-MOD) SARS CoV-2 RNA Rapid YVONNE (NEGATIVE) Blood Type B POSITIVE Antibody Screen NEGATIVE 02/07/20 02/07/20 02/07/20 Range/Units 10:56 10:56 10:56 WBC (4.0-11.0) K/uL RBC (4.50-5.90) M/uL Hgb (13.0-17.0) g/dL Hct (38.0-50.0) % MCV (80.0-98.0) fL MCH (27.0-32.0) pg MCHC (31.0-37.0) g/dL RDW Std Deviation (28.0-62.0) fl RDW Coeff of Ananth (11.0-15.0) % Plt Count (150-400) K/uL MPV (7.40-12.00) fL Neut % (Auto) (48.0-80.0) % Lymph % (Auto) (16.0-40.0) % Cedar % (Auto) (0.0-15.0) % Eos % (Auto) (0.0-7.0) % Baso % (Auto) (0.0-1.5) % Neut # (Auto) (1.4-5.7) K/uL Lymph # (Auto) (0.6-2.4) K/uL Cedar # (Auto) (0.0-0.8) K/uL Eos # (Auto) (0.0-0.7) K/uL Baso # (Auto) (0.0-0.1) K/uL Nucleated RBC % /100WBC Nucleated RBCs # K/uL INR 1.14 APTT 26.6 (18.6-31.3) SEC Lactate 2.4 H* (0.20-2.00) mmol/L Sodium (136-148) mmol/L Potassium (3.5-5.1) mmol/L Chloride (98-107) mmol/L Carbon Dioxide (21.0-32.0) mmol/L BUN (7.0-18.0) mg/dL Creatinine (0.8-1.3) mg/dL Est Cr Clr Drug Dosing mL/min Estimated GFR (MDRD) ml/min Glucose (74-106) mg/dL Calcium (8.5-10.1) mg/dL Total Bilirubin (0.2-1.0) mg/dL AST (15-37) IU/L ALT (14-63) IU/L Alkaline Phosphatase (46-116) U/L Troponin I (0.000-0.056) ng/mL Total Protein (6.4-8.2) g/dL Albumin (3.4-5.0) g/dL Globulin (2.6-4.0) g/dL Albumin/Globulin Ratio (0.9-1.6) Lipase (73-393) U/L Urine Color Urine Appearance Urine pH (5.0-8.0) Ur Specific [place] (1.001-1.035) Urine Protein (NEGATIVE) mg/dL Urine Glucose (UA) (NEGATIVE) mg/dL Urine Ketones (NEGATIVE) mg/dL Urine Occult Blood (NEGATIVE) Urine Nitrite (NEGATIVE) Urine Bilirubin (NEGATIVE) Urine Urobilinogen (<2.0) EU/dL Ur Leukocyte Esterase (NEGATIVE) U Hyaline Cast (Auto) (0-2/LPF) Urine RBC (0-2/HPF) Urine WBC (0-5/HPF) Ur Squamous Epith Cells Urine Bacteria (NEGATIVE) Fine Granular Casts (NEGATIVE) WBC Casts (NEGATIVE) Urine Mucus (NONE-MOD) SARS CoV-2 RNA Rapid YVONNE (NEGATIVE) Blood Type Antibody Screen 02/07/20 02/07/20 Range/Units 11:55 12:04 WBC (4.0-11.0) K/uL RBC (4.50-5.90) M/uL Hgb (13.0-17.0) g/dL Hct (38.0-50.0) % MCV (80.0-98.0) fL MCH (27.0-32.0) pg MCHC (31.0-37.0) g/dL RDW Std Deviation (28.0-62.0) fl RDW Coeff of Ananth (11.0-15.0) % Plt Count (150-400) K/uL MPV (7.40-12.00) fL Neut % (Auto) (48.0-80.0) % Lymph % (Auto) (16.0-40.0) % Cedar % (Auto) (0.0-15.0) % Eos % (Auto) (0.0-7.0) % Baso % (Auto) (0.0-1.5) % Neut # (Auto) (1.4-5.7) K/uL Lymph # (Auto) (0.6-2.4) K/uL Cedar # (Auto) (0.0-0.8) K/uL Eos # (Auto) (0.0-0.7) K/uL Baso # (Auto) (0.0-0.1) K/uL Nucleated RBC % /100WBC Nucleated RBCs # K/uL INR APTT (18.6-31.3) SEC Lactate (0.20-2.00) mmol/L Sodium (136-148) mmol/L Potassium (3.5-5.1) mmol/L Chloride (98-107) mmol/L Carbon Dioxide (21.0-32.0) mmol/L BUN (7.0-18.0) mg/dL Creatinine (0.8-1.3) mg/dL Est Cr Clr Drug Dosing mL/min Estimated GFR (MDRD) ml/min Glucose (74-106) mg/dL Calcium (8.5-10.1) mg/dL Total Bilirubin (0.2-1.0) mg/dL AST (15-37) IU/L ALT (14-63) IU/L Alkaline Phosphatase (46-116) U/L Troponin I (0.000-0.056) ng/mL Total Protein (6.4-8.2) g/dL Albumin (3.4-5.0) g/dL Globulin (2.6-4.0) g/dL Albumin/Globulin Ratio (0.9-1.6) Lipase (73-393) U/L Urine Color YELLOW Urine Appearance SLT CLOUDY Urine pH 7.5 (5.0-8.0) Ur Specific [place] 1.020 (1.001-1.035) Urine Protein >=300 H (NEGATIVE) mg/dL Urine Glucose (UA) 500 H (NEGATIVE) mg/dL Urine Ketones TRACE H (NEGATIVE) mg/dL Urine Occult Blood LARGE H (NEGATIVE) Urine Nitrite NEGATIVE (NEGATIVE) Urine Bilirubin NEGATIVE (NEGATIVE) Urine Urobilinogen 0.2 (<2.0) EU/dL Ur Leukocyte Esterase NEGATIVE (NEGATIVE) U Hyaline Cast (Auto) 0-2 (0-2/LPF) Urine RBC 150-200 (0-2/HPF) Urine WBC 5-10 (0-5/HPF) Ur Squamous Epith Cells FEW Urine Bacteria RARE (NEGATIVE) Fine Granular Casts 0-1 (NEGATIVE) WBC Casts 0-1 (NEGATIVE) Urine Mucus MODERATE (NONE-MOD) SARS CoV-2 RNA Rapid YVONNE NEGATIVE (NEGATIVE) Blood Type Antibody Screen Meds: Medications Generic Name Dose Route Start Last Admin Trade Name Freq PRN Reason Stop Dose Admin Sodium Chloride 10 ml 02/07/20 10:56 02/07/20 11:46 Saline Flush FLUSH 10 ml ASDIRECTED PRN Administration Keep Vein Open Sodium Chloride 2.5 ml 02/07/20 10:56 02/07/20 11:46 Saline Flush FLUSH 2.5 ml ASDIRECTED PRN Administration Keep Vein Open Discontinued Medications Generic Name Dose Route Start Last Admin Trade Name Freq PRN Reason Stop Dose Admin Ceftriaxone Sodium/Dextrose 2 50 mls @ 100 mls/hr 02/07/20 11:00 02/07/20 11:50 gm/ Premix IV 02/07/20 11:29 Not Given ONETIME ONE Sodium Chloride 1,000 mls @ 999 mls/hr 02/07/20 11:11 02/07/20 12:01 Normal Saline IV 02/07/20 12:11 999 mls/hr STAT ONE Administration Cefepime HCl 2 gm/ Premix 50 mls @ 100 mls/hr 02/07/20 11:13 02/07/20 11:47 IV 02/07/20 11:42 100 mls/hr ONETIME ONE Administration Vancomycin HCl 1 gm/ Sodium 250 mls @ 166 mls/hr 02/07/20 11:13 02/07/20 11:46 Chloride IV 02/07/20 12:43 166 mls/hr ONETIME ONE Administration Departure - Departure Time of Disposition: 13:30 Sepsis Event Note (ED) - Focused Exam Vital Signs: Vital Signs Temp Pulse Resp BP Pulse Ox 02/07/20 13:02 106 H 21 H 160/94 H 02/07/20 12:05 110 H 162/93 H 100 02/07/20 11:50 109 H 148/92 H 109 H 02/07/20 11:19 97.6 F 111 H 20 124/82 100 02/07/20 11:00 97.0 F 113 H 20 114/75 98 02/07/20 10:58 97.0 F 114 H 20 160/60 H 99 - My Orders Last 24 Hours: My Active Orders 02/07/20 10:48 CAMPYLOBACTER AG BY IMMUNO [MREF] Stat OVA & PARASITES BY IMMUNOASSAY [MREF] Stat STOOL CULTURE/SHIGA TOXIN [MREF] Stat 02/07/20 10:53 EKG Documentation Completion [RC] STAT 02/07/20 10:56 Sodium Chloride 0.9% [Saline Flush] 10 ml FLUSH ASDIRECTED PRN Sodium Chloride 0.9% [Saline Flush] 2.5 ml FLUSH ASDIRECTED PRN Saline Lock Insert [OM.PC] Stat 02/07/20 10:59 Blood Culture x2 Reflex Set [OM.PC] Stat 02/07/20 11:00 Abdomen Pelvis w Cont [CT] Stat 02/07/20 11:04 CULTURE BLOOD [BC] Stat 02/07/20 11:40 CULTURE BLOOD [BC] Stat 02/07/20 12:04 CORONAVIRUS COVID-19 PCR PHL Stat - Assessment/Plan Last 24 Hours: My Active Orders 02/07/20 10:48 CAMPYLOBACTER AG BY IMMUNO [MREF] Stat OVA & PARASITES BY IMMUNOASSAY [MREF] Stat STOOL CULTURE/SHIGA TOXIN [MREF] Stat 02/07/20 10:53 EKG Documentation Completion [RC] STAT 02/07/20 10:56 Sodium Chloride 0.9% [Saline Flush] 10 ml FLUSH ASDIRECTED PRN Sodium Chloride 0.9% [Saline Flush] 2.5 ml FLUSH ASDIRECTED PRN Saline Lock Insert [OM.PC] Stat 02/07/20 10:59 Blood Culture x2 Reflex Set [OM.PC] Stat 02/07/20 11:00 Abdomen Pelvis w Cont [CT] Stat 02/07/20 11:04 CULTURE BLOOD [BC] Stat 02/07/20 11:40 CULTURE BLOOD [BC] Stat 02/07/20 12:04 CORONAVIRUS COVID-19 PCR PHL Stat
[2020-02-07] MEDS ORDERED: Sodium Chloride 0.9% 2.5 ML Syringe FLUSH PRN (10:56)
[2020-02-07] MEDS ORDERED: Sodium Chloride 0.9% 10 ML Syringe FLUSH PRN (10:56)
[2020-02-07] MEDS ORDERED: cefTRIAXone 2 GM in Premix Bag 1 BAG IV ONE (11:00)
[2020-02-07] MEDS ORDERED: Sodium Chloride 0.9% 1,000 ML IV ONE (11:11)
[2020-02-07] MEDS ORDERED: Cefepime 2 GM in Premix Bag 1 BAG IV ONE (11:13)
[2020-02-07 11:33] LABS: BLOOD UREA NITROGEN,BUN 21 mg/dL (7.0-18.0); CARBON DIOXIDE,CO2 24.5 mmol/L (21.0-32.0); CHLORIDE,CL 93 mmol/L (98-107); GLUCOSE RANDOM 377 mg/dL (74-106); LIPASE 206 U/L (73-393); POTASSIUM,K 3.7 mmol/L (3.5-5.1); SODIUM,NA 131 mmol/L (136-148)
--- NOTE | 2020-02-07 13:04 | CR ---
INDICATIONS: Shortness of breath. TECHNIQUE: Chest 1 portable view. COMPARISON: Chest radiograph 05/15/2018. FINDINGS: Right-sided deep venous catheter terminates in the right atrium. No pneumothorax, pleural effusion, focal airspace consolidation or pulmonary edema. Cardiac and mediastinal contours are unchanged. Upper abdomen and osseous structures as imaged show no acute abnormality. IMPRESSION: No evidence of acute cardiopulmonary disease. Dictated by Den Burgess MD @ 02/07/2020 1:02:57 PM Dictated by: Den Burgess MD @ 02/07/2020 13:03:01 (Electronically Signed)
--- NOTE | 2020-02-07 13:23 | US ---
INDICATION: Right upper quadrant pain. Sepsis. TECHNIQUE: Ultrasound abdomen limited. Sonographic images of the right upper quadrant were obtained using morris-scale and color Doppler images. COMPARISON: CT abdomen 08/19/2014. FINDINGS: Liver: Normal in size and echotexture. No masses. No intrahepatic biliary dilatation. Gallbladder: No stones or sludge. Normal wall thickness. No pericholecystic fluid. Common bile duct: 3 mm. Pancreas: Unremarkable as imaged but partially obscured by bowel gas. Right kidney: 12.5 cm in length. There is diffuse increased echogenicity of the renal cortex. No hydronephrosis. No free fluid. IMPRESSION: 1. No cholelithiasis, gallbladder wall thickening, pericholecystic fluid or biliary ductal dilatation. 2. Findings suggestive of medical renal disease. No hydronephrosis. Dictated by Den Burgess MD @ 02/07/2020 1:20:24 PM Dictated by: Den Burgess MD @ 02/07/2020 13:20:50 (Electronically Signed)
[2020-02-07 13:52] VITALS: BP 155/64; PULSE 107
== END 2020-02-07 14:09 ==
LOC: MW.ED 10:34
DX: A41.9 Sepsis, unspecified organism (principal); K92.2 Gastrointestinal hemorrhage, unspecified; R31.9 Hematuria, unspecified; E11.65 Type 2 diabetes mellitus with hyperglycemia; E66.9 Obesity, unspecified; E78.00 Pure hypercholesterolemia, unspecified; Z88.6 Allergy status to analgesic agent; Z91.09 Other allergy status, other than to drugs and biological substances; Z79.4 Long term (current) use of insulin; Z79.899 Other long term (current) drug therapy; Z99.2 Dependence on renal dialysis; Z20.828 Contact with and (suspected) exposure to other viral communicable diseases; Z68.35 Body mass index [BMI] 35.0-35.9, adult
CPT/HCPCS: 36415; 71045; 76705; 80053; 81001; 83605; 83690; 84484; 85025; 85610; 85730; 86850; 86900; 86901; 87040; 87045; 87046; 87328; 87329; 87449; 87899; 93005; 96365; 96366; 96368; 99285; J0692; J3370; J7030; J7050; U0002; 93010; 99291

== ENCOUNTER 2020-07-07 00:27 | Emergency (ER) | payer MEDICARE ==
[2020-07-07] MEDS ORDERED: Sodium Chloride 0.9% 10 ML Syringe FLUSH PRN (00:31)
[2020-07-07] MEDS ORDERED: Sodium Chloride 0.9% 2.5 ML Syringe FLUSH PRN (00:31)
--- NOTE | 2020-07-07 00:36 | EDM.PDOC ---
ED HPI GENERAL MEDICAL PROBLEM - General Chief Complaint: Neuro Symptoms/Deficits Stated Complaint: STROKE Time Seen by Provider: 07/07/20 00:30 Source of Information: Reports: Patient, EMS - History of Present Illness INITIAL COMMENTS - FREE TEXT/NARRATIVE: History of present illness: Patient lost the use of his left upper extremity left lower extremity because of the fall out of bed. The patient fell out of bed but he was already unable to move his left side. This happened at 11:30 PM. The patient reports no change in his condition. He does not have a headache or think he injured his head. Patient has had a GI bleed in the past months ago but has been placed on medicine for his stomach acid and is better now. He is a diabetic and he smokes [] Review of systems: As per history of present illness and below otherwise all systems reviewed and negative. Past medical history: As per history of present illness and as reviewed below otherwise noncontributory. Surgical history: As per history of present illness and as reviewed below otherwise noncontributory. Social history: No reported history of drug or alcohol abuse. Family history: As per history of present illness and as reviewed below otherwise noncontributory. Physical exam: Constitutional - well developed, well-nourished and in no acute distress HEENT - normocephalic, no evidence of trauma - external nose and mouth normal - no mass in neck and no JVD - mucosae moist EYES - full EOM, PERRL, no icterus - no evidence of inflammation, injection, or drainage Respiratory - no respiratory distress, equal bilateral expansion, lungs clear to auscultation and no abnormal lung sounds Cardiovascular - Regular Rhythm with S1 and S2 appreciated and no murmur, gallop or rub. GI - abdomen soft without distension or organomegaly - normal bowel sounds - no guard or rebound Musculoskeletal no gross deformity of long bones or joints - no tenderness, swelling or edema Neurologic - Alert and oriented times four - CN II-XII grossly intact except unable to close left eyelid and has facial asymmetry not moving the left side of his face well.-Dense left hemiparesis and unable to resist gravity on the left side. Psychiatric - appropriate mood and affect with normal thought content Hematologic - No petechiae or purpura - mucosa appropriate color and sclera not pale - normal nail bed color and refill Integument - no rash or evidence of trauma - normal turgor Diagnostics: [] Therapeutics: [] Impression: [] Plan: [] Definitive disposition and diagnosis as appropriate pending reevaluation and review of above. general Pain Score (Numeric/FACES): 7 - Related Data Allergies Allergy/AdvReac Type Severity Reaction Status Date / Time naproxen sodium [From Aleve] Allergy Blisters Verified 07/07/20 01:12 tape Allergy Rash Uncoded 07/07/20 01:12 Home Meds: Home Meds Lisinopril 2.5 mg PO BEDTIME 07/20/18 [History] Metoprolol Tartrate 12.5 mg PO BID 07/20/18 [History] Levothyroxine [Synthroid] 50 mg PO QAM 11/03/19 [History] Melatonin 10 mg PO BEDTIME PRN 11/03/19 [History] Pregabalin [Lyrica] 150 mg PO ASDIRECTED 11/03/19 [History] Tamsulosin [Flomax] 0.4 mg PO DAILY 11/03/19 [History] Venlafaxine [Effexor] 37.5 mg PO Q48H 11/03/19 [History] prednisoLONE [Millipred] 2.5 mg PO TID 11/03/19 [History] Cyclobenzaprine [Flexeril] 5 mg PO TID PRN 01/19/20 [History] Insulin Glargine,Hum.Rec.Anlog [Lantus Solostar] 14 unit SQ BID 01/19/20 [History] Insulin Lispro [HumaLOG] 10 unit SQ TIDMEALS 01/19/20 [History] atorvaSTATin Calcium [Atorvastatin Calcium] 20 mg PO BEDTIME 01/19/20 [History] Acetaminophen/Diphenhydramine [Tylenol Pm Ex-Strength Caplet] 1 each PO BEDTIME 01/25/20 [History] Doxycycline Hyclate 100 mg PO BID 01/25/20 [History] Ferrous Sulfate 325 mg PO DAILY 01/25/20 [History] Insulin Glulisine [Apidra Solostar] ml INJECT ASDIRECTED 01/25/20 [History] Past Medical History HEENT History: Reports: Impaired Vision, Other (See Below) Other HEENT History: uses reading glasses, is blind in right eye Cardiovascular History: Reports: Blood Clots/VTE/DVT, High Cholesterol Other Cardiovascular History: hx of DVT right leg - 2 years ago- takes Eliquis Gastrointestinal History: Reports: GERD, Hiatal Hernia Genitourinary History: Reports: Renal Disease Other Genitourinary History: kidney failure from sarcoidosis Musculoskeletal History: Reports: Fracture Other Musculoskeletal History: hx of fx fingers and ribs Endocrine/Metabolic History: Reports: Hypothyroidism, IDDM, Obesity/BMI 30+ Hematologic History: Reports: Anticoagulation Therapy Immunologic History: Reports: Immunosuppression Oncologic (Cancer) History: Reports: Other (See Below) Other Oncologic History: sarcoidosis Dermatologic History: Reports: Other (See Below) Other Dermatologic History: has open draining wound on right foot - Infectious Disease History Infectious Disease History: Reports: Chicken Pox, Measles - Past Surgical History Head Surgeries/Procedures: Reports: None Cardiovascular Surgical History: Reports: Vascular Surgery Other Cardiovascular Surgeries/Procedures: AV fistula inserted and port-a-cath placement Musculoskeletal Surgical History: Reports: Other (See Below) Other Musculoskeletal Surgeries/Procedures:: Amputation of 7 toes, release of nerve intrapment in right arm-elbow Social & Family History - Family History Family Medical History: No Pertinent Family History - Caffeine Use Caffeine Use: Reports: Coffee, Soda, Tea ED ROS GENERAL - Review of Systems Review Of Systems: Comprehensive ROS is negative, except as noted in HPI. ED EXAM, GENERAL - Physical Exam Exam: See Below Free Text/Narrative:: My physical exam is in the HPI #1 Interpretation EKG Interpretation Comments: G sinus rhythm right bundle branch block heart rate 83 axis XVIII impression no obvious injury or arrhythmia. To 02/07/2020 no significant change except rate Course - Vital Signs Last Recorded V/S: Last Vital Signs Temp 36.6 C 07/07/20 00:27 Pulse 81 07/07/20 00:27 Resp 20 07/07/20 00:27 BP 177/84 H 07/07/20 00:27 Pulse Ox 100 07/07/20 00:27 - Orders/Labs/Meds Orders: Active Orders 24 hr Category Date Time Status EKG Documentation Completion [RC] AM Care 07/07/20 00:31 Active DRUG SCREEN, URINE [URCHEM] Stat Lab 07/07/20 00:31 Ordered Sodium Chloride 0.9% [Saline Flush] Med 07/07/20 00:31 Active 10 ml FLUSH ASDIRECTED PRN Sodium Chloride 0.9% [Saline Flush] Med 07/07/20 00:31 Active 2.5 ml FLUSH ASDIRECTED PRN Saline Lock Insert [OM.PC] Stat Oth 07/07/20 00:31 Ordered Medication Orders Sodium Chloride (Sodium Chloride 0.9% 10 Ml Syringe) 10 ml FLUSH ASDIRECTED PRN PRN Reason: Keep Vein Open Last Admin: 07/07/20 00:58 Dose: 10 ml Documented by: AGATA Sodium Chloride (Sodium Chloride 0.9% 2.5 Ml Syringe) 2.5 ml FLUSH ASDIRECTED PRN PRN Reason: Keep Vein Open Last Admin: 07/07/20 00:58 Dose: 2.5 ml Documented by: AGATA Labs: Laboratory Tests 07/07/20 07/07/20 07/07/20 Range/Units 00:30 00:30 00:30 WBC 7.58 (4.0-11.0) K/uL RBC 3.98 L (4.50-5.90) M/uL Hgb 11.1 L (13.0-17.0) g/dL Hct 33.7 L (38.0-50.0) % MCV 84.7 (80.0-98.0) fL MCH 27.9 (27.0-32.0) pg MCHC 32.9 (31.0-37.0) g/dL RDW Std Deviation 43.5 (28.0-62.0) fl RDW Coeff of Ananth 14 (11.0-15.0) % Plt Count 236 (150-400) K/uL MPV 9.20 (7.40-12.00) fL Neut % (Auto) 70.3 (48.0-80.0) % Lymph % (Auto) 15.7 L (16.0-40.0) % [place] % (Auto) 9.1 (0.0-15.0) % Eos % (Auto) 3.6 (0.0-7.0) % Baso % (Auto) 1.3 (0.0-1.5) % Neut # (Auto) 5.3 (1.4-5.7) K/uL Lymph # (Auto) 1.2 (0.6-2.4) K/uL [place] # (Auto) 0.7 (0.0-0.8) K/uL Eos # (Auto) 0.3 (0.0-0.7) K/uL Baso # (Auto) 0.1 (0.0-0.1) K/uL INR APTT 25.2 (18.6-31.3) SEC Sodium 138 (136-148) mmol/L Potassium 4.3 (3.5-5.1) mmol/L Chloride 102 (98-107) mmol/L Carbon Dioxide 24.5 (21.0-32.0) mmol/L BUN 57 H (7.0-18.0) mg/dL Creatinine 5.3 H (0.8-1.3) mg/dL Est Cr Clr Drug Dosing TNP Estimated GFR (MDRD) 11.3 ml/min Glucose 189 H (74-106) mg/dL Calcium 8.8 (8.5-10.1) mg/dL Total Bilirubin 0.2 (0.2-1.0) mg/dL AST 9 L (15-37) IU/L ALT 22 (14-63) IU/L Alkaline Phosphatase 71 (46-116) U/L Troponin I < 0.050 (0.000-0.056) ng/mL Total Protein 6.9 (6.4-8.2) g/dL Albumin 2.8 L (3.4-5.0) g/dL Globulin 4.1 H (2.6-4.0) g/dL Albumin/Globulin Ratio 0.7 L (0.9-1.6) Ethyl Alcohol < 3.0 mg/dL 07/07/20 Range/Units 00:30 WBC (4.0-11.0) K/uL RBC (4.50-5.90) M/uL Hgb (13.0-17.0) g/dL Hct (38.0-50.0) % MCV (80.0-98.0) fL MCH (27.0-32.0) pg MCHC (31.0-37.0) g/dL RDW Std Deviation (28.0-62.0) fl RDW Coeff of Ananth (11.0-15.0) % Plt Count (150-400) K/uL MPV (7.40-12.00) fL Neut % (Auto) (48.0-80.0) % Lymph % (Auto) (16.0-40.0) % [place] % (Auto) (0.0-15.0) % Eos % (Auto) (0.0-7.0) % Baso % (Auto) (0.0-1.5) % Neut # (Auto) (1.4-5.7) K/uL Lymph # (Auto) (0.6-2.4) K/uL Taney # (Auto) (0.0-0.8) K/uL Eos # (Auto) (0.0-0.7) K/uL Baso # (Auto) (0.0-0.1) K/uL INR 0.98 APTT (18.6-31.3) SEC Sodium (136-148) mmol/L Potassium (3.5-5.1) mmol/L Chloride (98-107) mmol/L Carbon Dioxide (21.0-32.0) mmol/L BUN (7.0-18.0) mg/dL Creatinine (0.8-1.3) mg/dL Est Cr Clr Drug Dosing Estimated GFR (MDRD) ml/min Glucose (74-106) mg/dL Calcium (8.5-10.1) mg/dL Total Bilirubin (0.2-1.0) mg/dL AST (15-37) IU/L ALT (14-63) IU/L Alkaline Phosphatase (46-116) U/L Troponin I (0.000-0.056) ng/mL Total Protein (6.4-8.2) g/dL Albumin (3.4-5.0) g/dL Globulin (2.6-4.0) g/dL Albumin/Globulin Ratio (0.9-1.6) Ethyl Alcohol mg/dL Meds: Medications Generic Name Dose Route Start Last Admin Trade Name Freq PRN Reason Stop Dose Admin Sodium Chloride 10 ml 07/07/20 00:31 07/07/20 00:58 Sodium Chloride 0.9% 10 Ml Syringe FLUSH 10 ml ASDIRECTED PRN Administration Keep Vein Open Sodium Chloride 2.5 ml 07/07/20 00:31 07/07/20 00:58 Sodium Chloride 0.9% 2.5 Ml Syringe FLUSH 2.5 ml ASDIRECTED PRN Administration Keep Vein Open Departure - Departure Time of Disposition: 01:45 Disposition: DC/Tfer to Acute Hospital 02 Condition: Good Clinical Impression: Acute CVA (cerebrovascular accident) - Discharge Information Referrals: PCP,None [Primary Care Provider] - Forms: ED Department Discharge Sepsis Event Note (ED) - Focused Exam Vital Signs: Vital Signs Temp Pulse Resp BP Pulse Ox 07/07/20 00:27 36.6 C 81 20 177/84 H 100 - My Orders Last 24 Hours: My Active Orders 07/07/20 00:31 EKG Documentation Completion [RC] AM DRUG SCREEN, URINE [URCHEM] Stat Sodium Chloride 0.9% [Saline Flush] 10 ml FLUSH ASDIRECTED PRN Sodium Chloride 0.9% [Saline Flush] 2.5 ml FLUSH ASDIRECTED PRN Saline Lock Insert [OM.PC] Stat - Assessment/Plan Last 24 Hours: My Active Orders 07/07/20 00:31 EKG Documentation Completion [RC] AM DRUG SCREEN, URINE [URCHEM] Stat Sodium Chloride 0.9% [Saline Flush] 10 ml FLUSH ASDIRECTED PRN Sodium Chloride 0.9% [Saline Flush] 2.5 ml FLUSH ASDIRECTED PRN Saline Lock Insert [OM.PC] Stat
--- NOTE | 2020-07-07 01:06 | CT ---
INDICATION: Head injury from fall TECHNIQUE: CT Head without i.v. contrast. Coronal and sagittal reformats were obtained. COMPARISON: None FINDINGS: CSF space: The ventricles are normal for age. Brain: No evidence of mass, acute infarction or hemorrhage is seen. No mass-effect or midline shift is seen. The brain parenchyma is otherwise normal in appearance with preservation of the morris-white matter junction. Calvarium: The visualized paranasal sinuses are well aerated. The mastoid air cells are clear. The visualized orbits are grossly unremarkable. The calvarium is unremarkable in appearance with no fractures identified. IMPRESSION: 1. No evidence of acute infarction, intracranial hemorrhage, or mass-effect seen. Please note that all CT scans at this facility use dose modulation, iterative reconstruction, and/or weight-based dosing when appropriate to reduce radiation dose to as low as reasonably achievable. Dictated by: Kevin Owen MD @ 07/07/2020 01:05:20 (Electronically Signed)
[2020-07-07 01:08] LABS: BLOOD UREA NITROGEN,BUN 57 mg/dL (7.0-18.0); CARBON DIOXIDE,CO2 24.5 mmol/L (21.0-32.0); CHLORIDE,CL 102 mmol/L (98-107); GLUCOSE RANDOM 189 mg/dL (74-106); POTASSIUM,K 4.3 mmol/L (3.5-5.1); SODIUM,NA 138 mmol/L (136-148)
[2020-07-07 01:12] VITALS: BP 177/84; PULSE 81
--- NOTE | 2020-07-07 01:17 | CT ---
INDICATION: Cervical spine injury from fall TECHNIQUE: CT cervical spine without i.v. contrast. Coronal and sagittal reformats were obtained. COMPARISON: None FINDINGS: Alignment: Unremarkable. Bone: No acute fractures or aggressive bone lesions are identified. Disc: The disc spaces are unremarkable in appearance. The facet joints are unremarkable. Soft tissue: The prevertebral soft tissues are unremarkable in appearance. The visualized lung apices and mediastinum are unremarkable. IMPRESSION: 1. No acute osseous injuries are identified. Please note that all CT scans at this facility use dose modulation, iterative reconstruction, and/or weight-based dosing when appropriate to reduce radiation dose to as low as reasonably achievable. Dictated by: Kevin Owen MD @ 07/07/2020 01:16:23 (Electronically Signed)
--- NOTE | 2020-07-07 01:19 | CR ---
INDICATION: chest injury from fall TECHNIQUE: Chest radiograph 1 view COMPARISON: None FINDINGS: Moderate degradation of mage quality noted due to body habitus. Mediastinum: The mediastinum is normal in appearance. The heart silhouette is normal in size and morphology. Lung: Both lungs are unremarkable in appearance. No sign of pleural effusion seen. No pneumothorax is identified. Bone and Soft tissue: Unremarkable for age. IMPRESSION: 1. No acute cardiopulmonary disease is seen. Dictated by: Kevin Owen MD @ 07/07/2020 01:18:29 (Electronically Signed)
[2020-07-07] MEDS ORDERED: Alteplase 81 MG in Premix Bag 1 BAG IV ONE (01:25)
== END 2020-07-07 01:54 ==
LOC: MW.ED 00:28
DX: I63.9 Cerebral infarction, unspecified (principal); E78.00 Pure hypercholesterolemia, unspecified; E03.9 Hypothyroidism, unspecified; E11.9 Type 2 diabetes mellitus without complications; F17.200 Nicotine dependence, unspecified, uncomplicated; I45.10 Unspecified right bundle-branch block; E66.9 Obesity, unspecified; Z68.39 Body mass index [BMI] 39.0-39.9, adult; Z86.718 Personal history of other venous thrombosis and embolism; Z79.01 Long term (current) use of anticoagulants; Z88.8 Allergy status to other drugs, medicaments and biological substances; Z91.048 Other nonmedicinal substance allergy status; Z79.4 Long term (current) use of insulin; Z79.899 Other long term (current) drug therapy
CPT/HCPCS: 36415; 37195; 70450; 71045; 72125; 80053; 80307; 84484; 85025; 85610; 85730; 93005; 99285; J2997; 93010; 99284

== ENCOUNTER 2020-11-28 00:05 | Emergency (ER) | payer MEDICARE, MEDICAID ==
[2020-11-28] MEDS ORDERED: Morphine 4 MG/ML Syringe IVPUSH ONE (00:40)
[2020-11-28 01:01] LABS: BLOOD UREA NITROGEN,BUN 56 mg/dL (7.0-18.0); CARBON DIOXIDE,CO2 23.3 mmol/L (21.0-32.0); CHLORIDE,CL 102 mmol/L (98-107); GLUCOSE RANDOM 340 mg/dL (74-106); POTASSIUM,K 5.3 mmol/L (3.5-5.1); SODIUM,NA 137 mmol/L (136-148)
[2020-11-28] MEDS ORDERED: Ketorolac 15 MG/ML SDV ONE (01:13)
[2020-11-28] MEDS ORDERED: Ketorolac 15 MG/ML SDV IVPUSH ONE (01:15)
--- NOTE | 2020-11-28 01:15 | CR ---
INDICATION: Fall. TECHNIQUE: Left shoulder radiograph, single frontal view. COMPARISON: None available. FINDINGS: Diffuse demineralization. No dislocation or displaced fracture. Irregular 1 cm oblong mineralized density projecting along the inferior aspect of the glenoid is indeterminate. The glenohumeral and AC joints appear intact. IMPRESSION: 1. No dislocation or displaced fracture. 2. Nonspecific oblong 1 cm mineralized density along the inferior aspect of the glenoid, likely an intra-articular body though a small fracture fragment is not excluded. Dictated by Kiel Caldera MD @ 11/28/2020 1:14:22 AM Dictated by: Kiel Caldera MD @ 11/28/2020 01:14:26 (Electronically Signed)
[2020-11-28] MEDS ORDERED: Magnesium Sulfate/Water 2 GM in Premix Bag 1 BAG IV ONE (01:17)
--- NOTE | 2020-11-28 01:17 | CR ---
INDICATION: Fall. TECHNIQUE: Portable AP chest radiograph. COMPARISON: 07/07/2020. FINDINGS: Mild left basilar patchy opacities. No pneumothorax or pleural effusion. Unchanged cardiac and mediastinal contours. IMPRESSION: Mild left basilar opacities may reflect atelectasis, pneumonitis, and/or infection. Dictated by Kiel Caldera MD @ 11/28/2020 1:15:15 AM Dictated by: Kiel Caldera MD @ 11/28/2020 01:15:19 (Electronically Signed)
--- NOTE | 2020-11-28 01:17 | CR ---
INDICATION: Fall. TECHNIQUE: Left hip radiographs, 2 views with AP pelvis. COMPARISON: None available. FINDINGS: Visualization overall degraded by underpenetration and diffusely decreased osseous mineralization. No dislocation or displaced fracture. Mild-moderate degenerative changes of the bilateral hips. The pubic symphysis and SI joints appear intact. Heavy atherosclerotic calcifications. IMPRESSION: No dislocation or displaced fracture identified. Evaluation overall degraded by under penetration and osseous demineralization. Dictated by Kiel Caldera MD @ 11/28/2020 1:16:54 AM Dictated by: Kiel Caldera MD @ 11/28/2020 01:16:59 (Electronically Signed)
--- NOTE | 2020-11-28 01:21 | PCM.EKG ---
#1 Interpretation EKG Date: 11/28/20 Time: 01:05 Rhythm: NSR Rate (Beats/Min): 114 [place]: Normal P-Wave: Present QRS: RBBB ST-T: Normal QT: Normal Comparison: No Change (07/07/20) EKG Interpretation Comments: Sinus with RBBB
[2020-11-28] MEDS ORDERED: Heparin Sodium/0.45% NaCl 500 ML IV SCH (02:15)
[2020-11-28] MEDS ORDERED: Heparin Sodium 5,000 Units/ML Vial IVPUSH ONE (02:15)
--- NOTE | 2020-11-28 04:48 | EDM.PDOC ---
<Juan Ramon Hightower - Last Filed: 11/28/20 07:59> ED HPI GENERAL MEDICAL PROBLEM - General Chief Complaint: General Stated Complaint: FALL Time Seen by Provider: 11/28/20 00:12 - Related Data Allergies Allergy/AdvReac Type Severity Reaction Status Date / Time naproxen sodium [From Aleve] Allergy Blisters Verified 11/28/20 00:46 tape Allergy Rash Uncoded 11/28/20 00:55 Home Meds: Home Meds B Complex W-C No.20/Folic Acid [Triphrocaps Softgel] 1 cap PO DAILY 11/28/20 [History] Cyclobenzaprine [Flexeril] 10 mg PO Q6HR PRN 11/28/20 [History] DULoxetine [Cymbalta] 30 mg PO DAILY 11/28/20 [History] Gabapentin [Neurontin] 300 mg PO TID 11/28/20 [History] Insulin Aspart [Insulin Aspart Flexpen] 12 units SQ TID 11/28/20 [History] Insulin Detemir [Levemir Flextouch] 24 units SQ DAILY 11/28/20 [History] Levothyroxine [Synthroid] 50 mcg PO DAILY 11/28/20 [History] Metoprolol Tartrate 25 mg PO BID 11/28/20 [History] Pantoprazole [ProTONIX IV] 40 mg PO DAILY 11/28/20 [History] Tamsulosin [Flomax] 0.4 mg PO DAILY 11/28/20 [History] amLODIPine [Norvasc] 10 mg PO DAILY 11/28/20 [History] atorvaSTATin [Lipitor] 20 mg PO DAILY 11/28/20 [History] hydrALAZINE [Apresoline] 100 mg PO TID 11/28/20 [History] predniSONE [Prednisone] 2.5 mg PO DAILY 11/28/20 [History] Course - Vital Signs Text/Narrative:: update. I excepted this patient at 7:00 from my partner who shift ended. The patient is waiting transport to [place] because no one else can do a CT with contrast to assess the size of his pulmonary embolus and then dialyze him as an inpatient. The patient is on a titratable heparin drip and needs at least intermediate care if not ICU. He requires dialysis certainly and this will be accelerated by the use of contrast to establish the size and location of his pulmonary embolus which is presumed. His blood pressure is trending down. I do not know with certainty that he will remain stable long enough to go by ambulance on the ground to [place] so we called [facility] to see if they had an opening for dialysis patient with these complicating factors. Neither does. Fixed wing flight has been elected so that this patient can get into the hands of someone who can assess the pulmonary embolus load and in fact assess whether that is the actual reason why he has the low blood pressures and the elevated D- dimer. His vital signs are stable although his blood pressure is trending down and was 101 systolic on the last recorded pressure. 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 Per EMS and the patient the patient has had multiple falls throughout the day. He states that he remembers being on the ground but does not remember falling. He denied any preceding chest pain, shortness of breath, abdominal pain, nausea or vomiting. He states that he did not miss hemodialysis. He states that he went to his scheduled hemodialysis appointment. He denies any lower extremity edema, recent travel, recent surgery, prior history of DVT but states he did have an arterial occlusion of hi s right lower extremity. He states that he is currently experiencing left shoulder pain as he has a recurrent left shoulder dislocation after the stroke and some left hip pain. He denies any bowel incontinence, urinary incontinence. He denies any head injury or loss of consciousness. He denies any blurry vision or loss of vision. REVIEW OF SYSTEMS: Constitutional: Denies fever, chills. Eyes: Denies eye pain Ears, Nose, Mouth, & Throat: Denies earache Cardiovascular: Positive for syncopal episode. Denies chest pain Respiratory: Denies shortness of breath Gastrointestinal: Denies Nausea, vomiting, diarrhea, hematochezia. Genitourinary: Denies hematuria Skin:Denies a rash MSK: positive for left shoulder and left hip pain Neurological: Denies blurred vision, numbness, tingling Psychiatric: Denies depression PAST MEDICAL HISTORY: As per history of present illness and as reviewed below otherwise noncontributory. SURGICAL HISTORY: As per history of present illness and as reviewed below otherwise noncontributory. SOCIAL HISTORY: As per history of present illness and as reviewed below otherwise noncontributory. FAMILY HISTORY: As per history of present illness and as reviewed below otherwise noncontributory. EXAMINATION OF ORGAN SYSTEMS/BODY AREAS: Constitutional: Blood pressure was 148/100, heart rate 115, respiratory rate 20 with an oxygen saturation 95% on room air. Temperature 36.1 General: Morbidly obese gentleman who is saying that his left shoulder and left hip hurt. Psychiatric: Appropriate mood and affect. Eyes: No scleral icterus or conjunctival erythema ENMT: Moist mucous membranes. No pharyngeal erythema Cardiovascular: Tachycardic but regular no gallops, murmurs, or rubs. Bilateral upper extremity pulses symmetric and intact. No peripheral edema. No JVD. Right upper extremity AV fistula with palpable thrill Respiratory: Lungs clear to auscultation bilaterally. No wheezes, rales, or rhonchi. Gastrointestinal: Soft, non-tender, non-distended. Normoactive bowel sounds Genitourinary: No suprapubic tenderness Musculoskeletal: The patient has his right elbow flexed. There is tenderness to palpation throughout his left shoulder. There is tenderness along the left hip. No instability in the hip or pelvis. Cervical, thoracic, lumbar midline spinal tenderness not present Skin: No lesions or abrasions. 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 At this time we did obtain an EKG which did reveal a right bundle branch block which is unchanged from prior without any evidence of ischemia. At this time we will obtain a left hip, chest x-ray and left shoulder x-ray. Given the patient's history of arterial occlusion pulmonary embolism is high in the differential however given the patient is end-stage renal disease we will obtain a D-dimer and if negative no further work-up indicated. Will obtain a cardiac work-up. We will place the patient on cardiac monitoring and pulse oximetry. We will provide the patient with 4 mg of IV morphine for pain relief. Heart Score History: Moderately Suspicious (1) ECG: Non-specific repolarization (1) Age: 45-64 (1) Risk Factors:>/= 3 (2) Initial Troponin: </= normal limit (0) Total Score: 5 Laboratory: CBC reveals a normocytic anemia with a hemoglobin of 10.5 hematocrit of 32.4 which is around the patient's baseline, leukocytosis with an white blood cell count of 11.86 without any left shift or neutrophilic predominance. Coags are within normal limits. D-dimer is elevated at 10.53. CMP reveals hyperkalem ia at 5.3 with slight hemolysis, elevated BUN at 56, creatinine of 5.2 which is around the patient's baseline, hyperglycemia at 340, hypomagnesemia at 1.3 and hypoalbuminemia at 3.0. Troponin is negative. The radiological images were viewed by myself along with reading the report from the radiologist. Left shoulder x-ray does not reveal any dislocation or displaced fracture there is a nonspecific oblong 1 cm mineralized density along the inferior aspect of the glenoid. Chest x-ray reveals mild left basilar opacities which may reflect atelectasis, pneumonitis and/or infection. Hip with pelvis x-ray does not reveal any fracture dislocation however this is limited secondary to underpenetration. After labs and imaging we will obtain a pelvis without contrast to further evaluate for any fracture. Given the patient's elevated D-dimer I did place an angiogram CT for evaluation. I was contacted by radiology and at this time they will not perform a CT angiogram with contrast in an end-stage renal disease patient unless there is a guarantee that there is hemodialysis scheduled within the next 24 hours. Given that the patient scheduled hemodialysis is on Saturday and greater than 24 hours and given that we do not have hemodialysis inpatient at this time we will start the patient on heparin and contact outside facility to obtain further work-up for a pulmonary embolism and need for hemodialysis given the contrast load. I did discuss this with the patient he was amenable to this plan. Repeat potassium was 5.0 lactic acid was normal. I contacted [facility] in [place] and at this time they do not have any available medical surgical beds and given that the patient does not require any emergent hemodialysis they are unable to accept this patient at this time. I contacted [facility] and [facility] and they did not have capability for the same reason. Therefore I contacted [facility] and spoke with Dr. Peck who accept the patient for ER transfer at this time. We contacted [facility] ambulance however they are unable to transport the patient at this time for approximately 5 more hours. Therefore we will observe the patient in the emergency department until transport can be initiated. The patient at this time does not meet any flight criteria. In discussion with the ER physician and physician in [facility] we will contact [facility] given that there is going to be a delay in transport given to limited transport availability at this time until 8:30 AM. The radiological images were viewed by myself along with reading the report from the radiologist. CT pelvis without contrast does not reveal any hip fractures however there is a subtle nondisplaced fracture in the distal sacrum with mild subluxation at the junction of the sacrum and coccyx. Otherwise no abnormality. Laboratory: Repeat troponin is negative. DISPOSITION: The patient was signed out to [facility] day team physician pending [facility], [facility] to see if there is a closer institution available prior to transport to [place] given that the ambulance is unable to be here until 8:30 AM. If the patient is unable to be transferred to [place] the patient should be transferred to [facility] for reevaluation for pulmonary embolism. CONDITION: Serious PROCEDURES: Cardiac monitoring interpretation, pulse oximetry interpretation FINAL IMPRESSION(S)/DIAGNOSES: 1. Acute syncope, suspect possible pulmonary embolism 2. Acute persistent tachycardia possibly secondary to #1 3. Acute hypomagnesemia 4. Acute recurrent fall 5. Acute left shoulder pain 6. Acute left hip pain 7. Acute nondisplaced distal sacral fracture Critical Care Procedure Note Authorized and performed by: Josiah Sharp M.D. Critical Care Time: 45 minutes Due to a high probability of clinically significant, life threatening deterioration, the patient required my highest level of preparedness to intervene emergently and I personally spent this critical care time directly and personally managing the patient. This critical care time included obtaining a history, examining the patient, pulse oximetry; ordering and review of studies; arranging urgent treatment with development of a management plan; evaluation of a patients reponse to treatment; frequent assessment; and discussions with other providers. This critical care time was performed to assess and manage the high probability of imminent, life threatening deterioration that could result in multiorgan failure. It was exclusive of separate billable procedures and treating other patients. Please see MDM section and rest of the note for further information on patient assessment and treatment. Please see MDM section and rest of the note for further information on patient assessment and treatment. Josiah Sharp M.D. Past Medical History HEENT History: Reports: Impaired Vision, Other (See Below) Other HEENT History: uses reading glasses, is blind in right eye Cardiovascular History: Reports: Blood Clots/VTE/DVT, High Cholesterol Other Cardiovascular History: hx of DVT right leg - 2 years ago- takes Eliquis Gastrointestinal History: Reports: GERD, Hiatal Hernia Genitourinary History: Reports: Renal Disease Other Genitourinary History: kidney failure from sarcoidosis Musculoskeletal History: Reports: Fracture Other Musculoskeletal History: hx of fx fingers and ribs. hx of left shoulder dislocation Neurological History: Reports: CVA Endocrine/Metabolic History: Reports: Hypothyroidism, IDDM, Obesity/BMI 30+ Hematologic History: Reports: Anticoagulation Therapy Immunologic History: Reports: Immunosuppression Oncologic (Cancer) History: Reports: Other (See Below) Other Oncologic History: sarcoidosis Dermatologic History: Reports: Other (See Below) Other Dermatologic History: has open draining wound on right foot - Infectious Disease History Infectious Disease History: Reports: Chicken Pox, Measles - Past Surgical History Head Surgeries/Procedures: Reports: None HEENT Surgical History: Reports: Tonsillectomy, Visual Cardiovascular Surgical History: Reports: Vascular Surgery Other Cardiovascular Surgeries/Procedures: AV fistula inserted and port-a-cath placement Musculoskeletal Surgical History: Reports: Other (See Below) Other Musculoskeletal Surgeries/Procedures:: Amputation of 7 toes, release of nerve intrapment in right arm-elbow Social & Family History - Family History Family Medical History: No Pertinent Family History - Tobacco Use Tobacco Use Status *Q: Never Tobacco User - Caffeine Use Caffeine Use: Reports: None - Recreational Drug Use Recreational Drug Use: No ED ROS GENERAL - Review of Systems Review Of Systems: See Below ED EXAM, GENERAL - Physical Exam Exam: See Below Course - Vital Signs Last Recorded V/S: Last Vital Signs Temp 36.6 C 11/28/20 08:40 Pulse 78 11/28/20 08:40 Resp 18 11/28/20 08:40 BP 102/52 L 11/28/20 08:40 Pulse Ox 97 11/28/20 08:40 - Orders/Labs/Meds Labs: Laboratory Tests 11/28/20 11/28/20 11/28/20 Range/Units 00:37 00:37 00:37 WBC 11.86 H (4.0-11.0) K/uL RBC 3.51 L (4.50-5.90) M/uL Hgb 10.5 L (13.0-17.0) g/dL Hct 32.4 L (38.0-50.0) % MCV 92.3 (80.0-98.0) fL MCH 29.9 (27.0-32.0) pg MCHC 32.4 (31.0-37.0) g/dL RDW Std Deviation 44.2 (28.0-62.0) fl RDW Coeff of Ananth 14 (11.0-15.0) % Plt Count 219 (150-400) K/uL MPV 9.70 (7.40-12.00) fL Neut % (Auto) 78.9 (48.0-80.0) % Lymph % (Auto) 9.5 L (16.0-40.0) % Evangeline % (Auto) 7.6 (0.0-15.0) % Eos % (Auto) 3.2 (0.0-7.0) % Baso % (Auto) 0.8 (0.0-1.5) % Neut # (Auto) 9.4 H (1.4-5.7) K/uL Lymph # (Auto) 1.1 (0.6-2.4) K/uL Evangeline # (Auto) 0.9 H (0.0-0.8) K/uL Eos # (Auto) 0.4 (0.0-0.7) K/uL Baso # (Auto) 0.1 (0.0-0.1) K/uL INR 1.00 APTT (18.6-31.3) SEC D-Dimer, Quantitative (0.0-0.50) mg/L FEU Sodium 137 (136-148) mmol/L Potassium 5.3 H (3.5-5.1) mmol/L Chloride 102 (98-107) mmol/L Carbon Dioxide 23.3 (21.0-32.0) mmol/L BUN 56 H (7.0-18.0) mg/dL Creatinine 5.2 H (0.8-1.3) mg/dL Est Cr Clr Drug Dosing TNP Estimated GFR (MDRD) 11.6 ml/min Glucose 340 H (74-106) mg/dL Lactic Acid (0.4-2.0) mmol/L Calcium 9.0 (8.5-10.1) mg/dL Magnesium 1.3 L (1.8-2.4) mg/dL Total Bilirubin 0.3 (0.2-1.0) mg/dL AST 26 (15-37) IU/L ALT 37 (14-63) IU/L Alkaline Phosphatase 84 (46-116) U/L Troponin I < 0.050 (0.000-0.056) ng/mL Total Protein 6.7 (6.4-8.2) g/dL Albumin 3.0 L (3.4-5.0) g/dL Globulin 3.7 (2.6-4.0) g/dL Albumin/Globulin Ratio 0.8 L (0.9-1.6) SARS-CoV-2 RNA (YVONNE) (NEGATIVE) 11/28/20 11/28/20 11/28/20 Range/Units 00:37 00:37 01:50 WBC (4.0-11.0) K/uL RBC (4.50-5.90) M/uL Hgb (13.0-17.0) g/dL Hct (38.0-50.0) % MCV (80.0-98.0) fL MCH (27.0-32.0) pg MCHC (31.0-37.0) g/dL RDW Std Deviation (28.0-62.0) fl RDW Coeff of Ananth (11.0-15.0) % Plt Count (150-400) K/uL MPV (7.40-12.00) fL Neut % (Auto) (48.0-80.0) % Lymph % (Auto) (16.0-40.0) % Evangeline % (Auto) (0.0-15.0) % Eos % (Auto) (0.0-7.0) % Baso % (Auto) (0.0-1.5) % Neut # (Auto) (1.4-5.7) K/uL Lymph # (Auto) (0.6-2.4) K/uL Evangeline # (Auto) (0.0-0.8) K/uL Eos # (Auto) (0.0-0.7) K/uL Baso # (Auto) (0.0-0.1) K/uL INR APTT 20.9 (18.6-31.3) SEC D-Dimer, Quantitative 10.53 H (0.0-0.50) mg/L FEU Sodium (136-148) mmol/L Potassium 5.0 (3.5-5.1) mmol/L Chloride (98-107) mmol/L Carbon Dioxide (21.0-32.0) mmol/L BUN (7.0-18.0) mg/dL Creatinine (0.8-1.3) mg/dL Est Cr Clr Drug Dosing Estimated GFR (MDRD) ml/min Glucose (74-106) mg/dL Lactic Acid (0.4-2.0) mmol/L Calcium (8.5-10.1) mg/dL Magnesium (1.8-2.4) mg/dL Total Bilirubin (0.2-1.0) mg/dL AST (15-37) IU/L ALT (14-63) IU/L Alkaline Phosphatase (46-116) U/L Troponin I (0.000-0.056) ng/mL Total Protein (6.4-8.2) g/dL Albumin (3.4-5.0) g/dL Globulin (2.6-4.0) g/dL Albumin/Globulin Ratio (0.9-1.6) SARS-CoV-2 RNA (YVONNE) (NEGATIVE) 11/28/20 11/28/20 11/28/20 Range/Units 01:50 04:42 08:07 WBC (4.0-11.0) K/uL RBC (4.50-5.90) M/uL Hgb (13.0-17.0) g/dL Hct (38.0-50.0) % MCV (80.0-98.0) fL MCH (27.0-32.0) pg MCHC (31.0-37.0) g/dL RDW Std Deviation (28.0-62.0) fl RDW Coeff of Ananth (11.0-15.0) % Plt Count (150-400) K/uL MPV (7.40-12.00) fL Neut % (Auto) (48.0-80.0) % Lymph % (Auto) (16.0-40.0) % Evangeline % (Auto) (0.0-15.0) % Eos % (Auto) (0.0-7.0) % Baso % (Auto) (0.0-1.5) % Neut # (Auto) (1.4-5.7) K/uL Lymph # (Auto) (0.6-2.4) K/uL Evangeline # (Auto) (0.0-0.8) K/uL Eos # (Auto) (0.0-0.7) K/uL Baso # (Auto) (0.0-0.1) K/uL INR APTT 40.5 H (18.6-31.3) SEC D-Dimer, Quantitative (0.0-0.50) mg/L FEU Sodium (136-148) mmol/L Potassium (3.5-5.1) mmol/L Chloride (98-107) mmol/L Carbon Dioxide (21.0-32.0) mmol/L BUN (7.0-18.0) mg/dL Creatinine (0.8-1.3) mg/dL Est Cr Clr Drug Dosing Estimated GFR (MDRD) ml/min Glucose (74-106) mg/dL Lactic Acid 1.7 (0.4-2.0) mmol/L Calcium (8.5-10.1) mg/dL Magnesium (1.8-2.4) mg/dL Total Bilirubin (0.2-1.0) mg/dL AST (15-37) IU/L ALT (14-63) IU/L Alkaline Phosphatase (46-116) U/L Troponin I < 0.050 (0.000-0.056) ng/mL Total Protein (6.4-8.2) g/dL Albumin (3.4-5.0) g/dL Globulin (2.6-4.0) g/dL Albumin/Globulin Ratio (0.9-1.6) SARS-CoV-2 RNA (YVONNE) (NEGATIVE) 11/28/20 Range/Units 08:07 WBC (4.0-11.0) K/uL RBC (4.50-5.90) M/uL Hgb (13.0-17.0) g/dL Hct (38.0-50.0) % MCV (80.0-98.0) fL MCH (27.0-32.0) pg MCHC (31.0-37.0) g/dL RDW Std Deviation (28.0-62.0) fl RDW Coeff of Ananth (11.0-15.0) % Plt Count (150-400) K/uL MPV (7.40-12.00) fL Neut % (Auto) (48.0-80.0) % Lymph % (Auto) (16.0-40.0) % Evangeline % (Auto) (0.0-15.0) % Eos % (Auto) (0.0-7.0) % Baso % (Auto) (0.0-1.5) % Neut # (Auto) (1.4-5.7) K/uL Lymph # (Auto) (0.6-2.4) K/uL Evangeline # (Auto) (0.0-0.8) K/uL Eos # (Auto) (0.0-0.7) K/uL Baso # (Auto) (0.0-0.1) K/uL INR APTT (18.6-31.3) SEC D-Dimer, Quantitative (0.0-0.50) mg/L FEU Sodium (136-148) mmol/L Potassium (3.5-5.1) mmol/L Chloride (98-107) mmol/L Carbon Dioxide (21.0-32.0) mmol/L BUN (7.0-18.0) mg/dL Creatinine (0.8-1.3) mg/dL Est Cr Clr Drug Dosing Estimated GFR (MDRD) ml/min Glucose (74-106) mg/dL Lactic Acid (0.4-2.0) mmol/L Calcium (8.5-10.1) mg/dL Magnesium (1.8-2.4) mg/dL Total Bilirubin (0.2-1.0) mg/dL AST (15-37) IU/L ALT (14-63) IU/L Alkaline Phosphatase (46-116) U/L Troponin I (0.000-0.056) ng/mL Total Protein (6.4-8.2) g/dL Albumin (3.4-5.0) g/dL Globulin (2.6-4.0) g/dL Albumin/Globulin Ratio (0.9-1.6) SARS-CoV-2 RNA (YVONNE) NEGATIVE (NEGATIVE) Meds: Medications Discontinued Medications Generic Name Dose Route Start Last Admin Trade Name Freq PRN Reason Stop Dose Admin Heparin Sodium (Porcine) 5,000 units 11/28/20 02:15 11/28/20 03:04 Heparin Sodium 5,000 Units/Ml Vial IVPUSH 11/28/20 02:16 5,000 units .BOLUS ONE Administration Magnesium Sulfate 2 gm/ Premix 50 mls @ 12.5 mls/hr 11/28/20 01:17 11/28/20 03:04 IV 11/28/20 05:16 12.5 mls/hr ONETIME ONE Administration Heparin Sodium/Sodium Chloride 500 mls @ 26.048 mls/hr 11/28/20 02:15 11/28/20 03:15 Heparin 25,000 Units In 1/2 Ns 500 Ml IV 8.8 units/kg/hr TITRATE CINTHIA 26.048 mls/hr Administration Protocol 8.8 UNITS/KG/HR Ketorolac Tromethamine 15 mg 11/28/20 01:15 11/28/20 01:16 Ketorolac 15 Mg/Ml Sdv IVPUSH 11/28/20 01:16 15 mg ONETIME ONE Administration Ketorolac Tromethamine Confirm 11/28/20 01:13 11/28/20 01:18 Ketorolac 15 Mg/Ml Sdv Administered 11/28/20 01:14 Not Given Dose 15 mg .ROUTE .STK-MED ONE Morphine Sulfate 4 mg 11/28/20 00:40 11/28/20 00:52 Morphine 4 Mg/Ml Syringe IVPUSH 11/28/20 00:41 4 mg ONETIME ONE Administration Departure - Departure Time of Disposition: 08:45 Sepsis Event Note (ED) - Evaluation Sepsis Screening Result: No Definite Risk - Focused Exam Vital Signs: Vital Signs Temp Pulse Resp BP BP Pulse Ox 11/28/20 08:40 36.6 C 78 18 102/52 L 97 11/28/20 08:00 81 16 109/43 L 97 11/28/20 07:11 81 18 101/49 L 97 11/28/20 06:34 87 17 106/53 L 100 11/28/20 05:28 91 18 107/53 L 96 11/28/20 04:29 94 18 119/54 L 98 11/28/20 03:27 108/57 L 11/28/20 03:23 101 H 102/48 L 11/28/20 03:08 104 H 20 98/39 L 98
--- NOTE | 2020-11-28 06:34 | CT ---
INDICATION: Trauma, fall. TECHNIQUE: CT pelvis without contrast. COMPARISON: CT abdomen pelvis August 19, 2014. FINDINGS: Bones: Subtle nondisplaced fracture is present in the distal sacrum as demonstrated on the sagittal series 204, image 112. There is also subluxation at the junction of the sacrum and coccyx visualized on this same image. No other fracture or malalignment in the pelvis. Joints: Unremarkable. Soft tissues: Unremarkable. IMPRESSION: Subtle nondisplaced fracture in the distal sacrum with a mild subluxation at the junction of the sacrum and coccyx. Both are presumably acute findings. Remainder of the exam is unremarkable. Please note that all CT scans at this facility use dose modulation, iterative reconstruction, and/or weight-based dosing when appropriate to reduce radiation dose to as low as reasonably achievable. Dictated by Juan Pablo Chew MD @ 11/28/2020 6:33:[address] Juan Pablo Chwe @ Nov 28 2020 6:33AM
[2020-11-28 09:15] VITALS: BP 102/52; PULSE 78
== END 2020-11-28 08:45 ==
LOC: MW.ED 00:05
DX: S32.19XA Other fracture of sacrum, initial encounter for closed fracture (principal); R55 Syncope and collapse; R00.0 Tachycardia, unspecified; M25.512 Pain in left shoulder; M25.552 Pain in left hip; E83.42 Hypomagnesemia; E11.22 Type 2 diabetes mellitus with diabetic chronic kidney disease; N18.6 End stage renal disease; K21.9 Gastro-esophageal reflux disease without esophagitis; E78.00 Pure hypercholesterolemia, unspecified; E03.9 Hypothyroidism, unspecified; E66.9 Obesity, unspecified; Z99.2 Dependence on renal dialysis; Z68.30 Body mass index [BMI] 30.0-30.9, adult; Z86.718 Personal history of other venous thrombosis and embolism; Z86.73 Personal history of transient ischemic attack (TIA), and cerebral infarction without residual deficits; Z91.048 Other nonmedicinal substance allergy status; Z88.5 Allergy status to narcotic agent; Z79.899 Other long term (current) drug therapy; Z20.822 Contact with and (suspected) exposure to COVID-19; W18.39XA Other fall on same level, initial encounter
CPT/HCPCS: 36415; 71045; 72192; 73020; 73502; 80053; 83605; 83735; 84132; 84484; 85025; 85379; 85610; 85730; 93005; 96365; 96366; 96368; 96375; 99285; G0390; J1644; J1885; J2270; J3475; U0002

== ENCOUNTER 2021-02-03 13:34 | Emergency (ER) | payer MEDICARE, MEDICAID ==
--- NOTE | 2021-02-03 14:50 | CR ---
INDICATION: Diabetic ulcer. Evaluate for bony abnormality. TECHNIQUE: Three views of the right foot. COMPARISON: 07/20/2017. FINDINGS: Interval amputation of the 5th ray to the level of the TMT joint and amputation of the other raise to the level of the proximal metatarsal shafts. Stump soft tissue irregularity suspected to represent the site of ulceration. No obvious erosive change or periosteal reaction to indicate osteomyelitis. IMPRESSION: Stump ulcer without convincing x-ray evidence of osteomyelitis. Dictated by Rogerio Rosario MD @ 02/03/2021 2:48:39 PM (Electronically Signed)
[2021-02-03 15:05] LABS: HEMOGLOBIN A1C 9.1 %
[2021-02-03 15:18] VITALS: PULSE 64
[2021-02-03 15:19] LABS: CARBON DIOXIDE,CO2 26.2 mmol/L (21.0-32.0); POTASSIUM,K 5.1 mmol/L (3.5-5.1)
--- NOTE | 2021-02-03 16:03 | EDM.PDOC ---
ED HPI GENERAL MEDICAL PROBLEM - General Chief Complaint: Lower Extremity Injury/Pain Stated Complaint: rt foot Time Seen by Provider: 02/03/21 13:49 - History of Present Illness INITIAL COMMENTS - FREE TEXT/NARRATIVE: CHIEF COMPLAINT(S): Right foot wound HISTORY OF PRESENT ILLNESS: This is a 56-year-old man with a past medical history of uncontrolled diabetes mellitus and multiple prior amputations who presents to the emergency department with a chief complaint of right foot wound. The patient states that he was sent to the ER after his primary care physician looked at his right foot wound for further evaluation. He states that for the last 2 weeks his right foot has turned black on the heel sign. He states that he does not have any pain and there has been no purulent drainage. He denies any foul smell. He denies any fever, chills, chest pain, shortness of breath. He denies any other rash. He states he is purely here because they told him to come to the emergency department. REVIEW OF SYSTEMS: Constitutional: Denies fever, chills. Eyes: Denies eye pain Ears, Nose, Mouth, & Throat: Denies earache Cardiovascular: Denies chest pain Respiratory: Denies shortness of breath Gastrointestinal: Denies Nausea, vomiting, diarrhea, hematochezia. Genitourinary: Denies hematuria Skin: Positive from to right foot MSK: Denies joint pain Neurological: Denies blurred vision Psychiatric: Denies depression PAST MEDICAL HISTORY: As per history of present illness and as reviewed below otherwise noncontributory. SURGICAL HISTORY: As per history of present illness and as reviewed below otherwise noncontributory SOCIAL HISTORY: As per history of present illness and as reviewed below otherwise noncontributory. FAMILY HISTORY: As per history of present illness and as reviewed below otherwise noncontributory. EXAMINATION OF ORGAN SYSTEMS/BODY AREAS: Constitutional: Blood pressure is 115/63, heart rate 73, respiratory rate 20 with an oxygen saturation 97% on room air. Temperature 36.1 General: Middle-aged man who is in no acute distress Psychiatric: Appropriate mood and affect. Eyes: No scleral icterus or conjunctival erythema ENMT: Moist mucous membranes. No pharyngeal erythema Cardiovascular: Regular, rate, and rhythm. No gallops, murmurs, or rubs. Bilateral upper extremity pulses symmetric and intact. No peripheral edema. No JVD. Respiratory: Lungs clear to auscultation bilaterally. No wheezes, rales, or rhonchi. Gastrointestinal: Soft, non-tender, non-distended. Normoactive bowel sounds Genitourinary: No suprapubic tenderness Musculoskeletal: Normal range of motion. Skin: There is dry gangrene to the posterior heel of the right stump. No purulent drainage or surrounding erythema or warmth. Neurological: Alert, GCS 15 distal sensation is intact. MEDICAL DECISION MAKING AND COURSE IN THE ED WITH INTERPRETATION/REVIEW OF DIAGNOSTIC STUDIES: This is a 56-year-old man with a past medical history of uncontrolled diabetes mellitus who presents today emergency department with dry gangrene of the right posterior heel. At this time labs have been obtained prior to my evaluation. We will follow up on those labs. The patient appears nontoxic and is did not appear to be an acute wound and it does not appear to be acutely infected. At this time will wait for labs and final disposition. Will obtain a right foot x-ray. Laboratory: CBC reveals a normocytic anemia with hemoglobin of 9.1 hematocrit 28.4. ESR is elevated at greater than 140. INR is normal. CMP reveals chronic kidney disease with a BUN of 39 and creatinine 5.1 which is unchanged from alber or. Hyperglycemia at 409. A1c is 9.1. There is mild elevation of lactic acid at 2.6. CRP is elevated at 14.60. Covid is negative. The radiological images were viewed by myself along with reading the report from the radiologist. Right foot x-ray reveals a stump ulcer without convincing x- ray evidence of osteomyelitis. After imaging I did contact stencil typist Dr. Clancy and discussed the case with him. At this time the patient can follow-up outpatient on Saturday or Saturday. I did discuss the results with patient. At this time I did encourage the patient to continue with tight glycemic control. He should follow-up with his primary care physician and make an appointment with podiatry for definitive management of this wound which will likely be debridement. I did discuss strict return cautions with the patient. He was amenable to discharge and had no further questions. DISPOSITION: The patient was discharged home in stable condition. The patient will follow up with podiatry in 3 to 4 days CONDITION: Fair PROCEDURES: None FINAL IMPRESSION(S)/DIAGNOSES: 1. Right heel dry gangrene Josiah Sharp M.D. - Related Data Allergies Allergy/AdvReac Type Severity Reaction Status Date / Time naproxen sodium [From Aleve] Allergy Blisters Verified 02/03/21 13:53 tape Allergy Rash Uncoded 02/03/21 13:53 Home Meds: Home Meds Gabapentin [Neurontin] 300 mg PO TID 11/28/20 [History] Insulin Aspart [Insulin Aspart Flexpen] 12 units SQ TID 11/28/20 [History] Insulin Detemir [Levemir Flextouch] 24 units SQ DAILY 11/28/20 [History] Levothyroxine [Synthroid] 50 mcg PO DAILY 11/28/20 [History] Tamsulosin [Flomax] 0.4 mg PO DAILY 11/28/20 [History] amLODIPine [Norvasc] 10 mg PO DAILY 11/28/20 [History] atorvaSTATin [Lipitor] 20 mg PO DAILY 11/28/20 [History] hydrALAZINE [Apresoline] 100 mg PO TID 11/28/20 [History] Past Medical History HEENT History: Reports: Impaired Vision, Other (See Below) Other HEENT History: uses reading glasses, is blind in right eye Cardiovascular History: Reports: Blood Clots/VTE/DVT, High Cholesterol, Hypertension Other Cardiovascular History: hx of DVT right leg - 2 years ago- takes Eliquis Gastrointestinal History: Reports: GERD, Hiatal Hernia Genitourinary History: Reports: BPH, Dialysis, Diabetic Nephropathy, Renal Disease Other Genitourinary History: kidney failure from sarcoidosis Musculoskeletal History: Reports: Amputation, Fracture Other Musculoskeletal History: hx of fx fingers and ribs. hx of left shoulder dislocation. amputations: partial right foot, partial left foot, right hand 4th finger Neurological History: Reports: CVA, Neuropathy, Diabetic Endocrine/Metabolic History: Reports: Diabetes, Type II, Hypothyroidism, IDDM, Obesity/BMI 30+ Other Endocrine/Metabolic History: on dialysis Hematologic History: Reports: Anticoagulation Therapy Immunologic History: Reports: Immunosuppression Oncologic (Cancer) History: Reports: Other (See Below) Other Oncologic History: sarcoidosis Dermatologic History: Reports: Other (See Below) Other Dermatologic History: has open draining wound on right foot - Infectious Disease History Infectious Disease History: Reports: Chicken Pox, Measles - Past Surgical History Head Surgeries/Procedures: Reports: None HEENT Surgical History: Reports: Tonsillectomy, Visual Cardiovascular Surgical History: Reports: Vascular Surgery Other Cardiovascular Surgeries/Procedures: AV fistula inserted and port-a-cath placement Musculoskeletal Surgical History: Reports: Amputation, Other (See Below) Other Musculoskeletal Surgeries/Procedures:: Amputation of 7 toes, release of nerve intrapment in right arm-elbow Social & Family History - Family History Family Medical History: No Pertinent Family History - Tobacco Use Tobacco Use Status *Q: Former Tobacco User Years of Tobacco use: 30 Packs/Tins Daily: 3 Used Tobacco, but Quit: Yes Month/Year Tobacco Last Used: 2014 - Caffeine Use Caffeine Use: Reports: Coffee, Tea Caffeine Use Comment: occassionally - Recreational Drug Use Recreational Drug Use: No Review of Systems - Review of Systems Review Of Systems: See Below ED EXAM, GENERAL - Physical Exam Exam: See Below Course - Vital Signs Last Recorded V/S: Last Vital Signs Temp 35.2 C L 02/03/21 16:18 Pulse 64 02/03/21 16:18 Resp 20 02/03/21 16:18 BP 126/67 02/03/21 16:18 Pulse Ox 96 02/03/21 16:18 - Orders/Labs/Meds Labs: Laboratory Tests 02/03/21 02/03/21 02/03/21 Range/Units 14:18 14:39 14:39 WBC 11.00 (4.0-11.0) K/uL RBC 3.24 L (4.50-5.90) M/uL Hgb 9.1 L (13.0-17.0) g/dL Hct 28.4 L (38.0-50.0) % MCV 87.7 (80.0-98.0) fL MCH 28.1 (27.0-32.0) pg MCHC 32.0 (31.0-37.0) g/dL RDW Std Deviation 44.9 (28.0-62.0) fl RDW Coeff of Ananth 14 (11.0-15.0) % Plt Count 332 (150-400) K/uL MPV 8.80 (7.40-12.00) fL Neut % (Auto) 75.6 (48.0-80.0) % Lymph % (Auto) 15.3 L (16.0-40.0) % Thayer % (Auto) 6.0 (0.0-15.0) % Eos % (Auto) 2.9 (0.0-7.0) % Baso % (Auto) 0.2 (0.0-1.5) % Neut # (Auto) 8.3 H (1.4-5.7) K/uL Lymph # (Auto) 1.7 (0.6-2.4) K/uL Thayer # (Auto) 0.7 (0.0-0.8) K/uL Eos # (Auto) 0.3 (0.0-0.7) K/uL Baso # (Auto) 0.0 (0.0-0.1) K/uL Nucleated RBC % 0.0 /100WBC Nucleated RBCs # 0 K/uL ESR > 140 H (0-19) mm/hr INR Sodium (136-148) mmol/L Potassium (3.5-5.1) mmol/L Chloride (98-107) mmol/L Carbon Dioxide (21.0-32.0) mmol/L BUN (7.0-18.0) mg/dL Creatinine (0.8-1.3) mg/dL Est Cr Clr Drug Dosing mL/min Estimated GFR (MDRD) ml/min Glucose (74-106) mg/dL Hemoglobin A1c (4.5 - 6.2) % Lactic Acid (0.4-2.0) mmol/L Calcium (8.5-10.1) mg/dL Total Bilirubin (0.2-1.0) mg/dL AST (15-37) IU/L ALT (14-63) IU/L Alkaline Phosphatase (46-116) U/L C-Reactive Protein (0.00-0.90) mg/dL Total Protein (6.4-8.2) g/dL Albumin (3.4-5.0) g/dL Globulin (2.6-4.0) g/dL Albumin/Globulin Ratio (0.9-1.6) SARS-CoV-2 RNA (YVONNE) NEGATIVE (NEGATIVE) 02/03/21 02/03/21 02/03/21 Range/Units 14:39 14:39 14:39 WBC (4.0-11.0) K/uL RBC (4.50-5.90) M/uL Hgb (13.0-17.0) g/dL Hct (38.0-50.0) % MCV (80.0-98.0) fL MCH (27.0-32.0) pg MCHC (31.0-37.0) g/dL RDW Std Deviation (28.0-62.0) fl RDW Coeff of Ananth (11.0-15.0) % Plt Count (150-400) K/uL MPV (7.40-12.00) fL Neut % (Auto) (48.0-80.0) % Lymph % (Auto) (16.0-40.0) % Thayer % (Auto) (0.0-15.0) % Eos % (Auto) (0.0-7.0) % Baso % (Auto) (0.0-1.5) % Neut # (Auto) (1.4-5.7) K/uL Lymph # (Auto) (0.6-2.4) K/uL Thayer # (Auto) (0.0-0.8) K/uL Eos # (Auto) (0.0-0.7) K/uL Baso # (Auto) (0.0-0.1) K/uL Nucleated RBC % /100WBC Nucleated RBCs # K/uL ESR (0-19) mm/hr INR 1.07 Sodium 136 (136-148) mmol/L Potassium 5.1 (3.5-5.1) mmol/L Chloride 98 (98-107) mmol/L Carbon Dioxide 26.2 (21.0-32.0) mmol/L BUN 39 H (7.0-18.0) mg/dL Creatinine 5.1 H (0.8-1.3) mg/dL Est Cr Clr Drug Dosing 18.54 mL/min Estimated GFR (MDRD) 11.8 ml/min Glucose 409 H (74-106) mg/dL Hemoglobin A1c (4.5 - 6.2) % Lactic Acid 2.6 H* (0.4-2.0) mmol/L Calcium 8.5 (8.5-10.1) mg/dL Total Bilirubin 0.3 (0.2-1.0) mg/dL AST 13 L (15-37) IU/L ALT 15 (14-63) IU/L Alkaline Phosphatase 82 (46-116) U/L C-Reactive Protein 14.60 H (0.00-0.90) mg/dL Total Protein 7.2 (6.4-8.2) g/dL Albumin 2.5 L (3.4-5.0) g/dL Globulin 4.7 H (2.6-4.0) g/dL Albumin/Globulin Ratio 0.5 L (0.9-1.6) SARS-CoV-2 RNA (YVONNE) (NEGATIVE) 02/03/21 Range/Units 14:39 WBC (4.0-11.0) K/uL RBC (4.50-5.90) M/uL Hgb (13.0-17.0) g/dL Hct (38.0-50.0) % MCV (80.0-98.0) fL MCH (27.0-32.0) pg MCHC (31.0-37.0) g/dL RDW Std Deviation (28.0-62.0) fl RDW Coeff of Ananth (11.0-15.0) % Plt Count (150-400) K/uL MPV (7.40-12.00) fL Neut % (Auto) (48.0-80.0) % Lymph % (Auto) (16.0-40.0) % Thayer % (Auto) (0.0-15.0) % Eos % (Auto) (0.0-7.0) % Baso % (Auto) (0.0-1.5) % Neut # (Auto) (1.4-5.7) K/uL Lymph # (Auto) (0.6-2.4) K/uL Thayer # (Auto) (0.0-0.8) K/uL Eos # (Auto) (0.0-0.7) K/uL Baso # (Auto) (0.0-0.1) K/uL Nucleated RBC % /100WBC Nucleated RBCs # K/uL ESR (0-19) mm/hr INR Sodium (136-148) mmol/L Potassium (3.5-5.1) mmol/L Chloride (98-107) mmol/L Carbon Dioxide (21.0-32.0) mmol/L BUN (7.0-18.0) mg/dL Creatinine (0.8-1.3) mg/dL Est Cr Clr Drug Dosing mL/min Estimated GFR (MDRD) ml/min Glucose (74-106) mg/dL Hemoglobin A1c 9.1 H (4.5 - 6.2) % Lactic Acid (0.4-2.0) mmol/L Calcium (8.5-10.1) mg/dL Total Bilirubin (0.2-1.0) mg/dL AST (15-37) IU/L ALT (14-63) IU/L Alkaline Phosphatase (46-116) U/L C-Reactive Protein (0.00-0.90) mg/dL Total Protein (6.4-8.2) g/dL Albumin (3.4-5.0) g/dL Globulin (2.6-4.0) g/dL Albumin/Globulin Ratio (0.9-1.6) SARS-CoV-2 RNA (YVONNE) (NEGATIVE) Departure - Departure Time of Disposition: 16:00 Disposition: Home, Self-Care 01 Condition: Fair Clinical Impression: Dry gangrene - Discharge Information *PRESCRIPTION DRUG MONITORING PROGRAM REVIEWED*: No *COPY OF PRESCRIPTION DRUG MONITORING REPORT IN PATIENT JACKLYN: No Instructions: Gangrene Referrals: Raul Lynn MD [Primary Care Provider] - Forms: ED Department Discharge Additional Instructions: You were evaluated today on an emergent basis. At this time your sugar was elevated and I do recommend that she continue checking her sugar at home and your A1c was also elevated. As discussed this is important for wound healing. Although your lactic acid was elevated today your white blood cell count was not elevated and you did not have any fever. There was no redness and the skin on the back of your heel did appear and not warm. I did speak with podiatry at this time given my examination, the imaging he recommends follow-up early next week for evaluation for debridement. If you have any redness, pus drainage, or change in smell of your right heel I would like you to return to the emergency department. Podiatry Dr. Clancy [phone] The patient is informed of any results of their evaluation and diagnostic workup and all questions are answered. They are given discharge instructions and return precautions. The patient is stable for discharge. The patient states they understand and agree with the plan and that they will return if their symptoms get worse or if they have any new concerns. The following information is given to patients seen in the emergency department who are being discharged to home. This information is to outline your options for follow-up care. We provide all patients seen in our emergency department with a follow-up referral. The need for follow-up, as well as the timing and circumstances, are variable depending upon the specifics of your emergency department visit. If you don't have a primary care physician on staff, we will provide you with a referral. We always advise you to contact your personal physician following an emergency department visit to inform them of the circumstance of the visit and for follow-up with them and/or the need for any referrals to a consulting specialist. The emergency department will also refer you to a specialist when appropriate. This referral assures that you have the opportunity for follow-up care with a specialist. All of these measure are taken in an effort to provide you with optimal care, which includes your follow-up. Under all circumstances we always encourage you to contact your private physician who remains a resource for coordinating your care. When calling for follow-up care, please make the office aware that this follow-up is from your recent emergency room visit. If for any reason you are refused follow-up, please contact the [facility] Emergency Department at and asked to speak to the emergency department charge nurse. Sepsis Event Note (ED) - Evaluation Sepsis Screening Result: No Definite Risk
[2021-02-03 16:20] VITALS: BP 126/67
== END 2021-02-03 16:25 | disposition home or self-care (01) ==
LOC: MW.ED 13:34
DX: I96 Gangrene, not elsewhere classified (principal); E78.00 Pure hypercholesterolemia, unspecified; I10 Essential (primary) hypertension; E11.21 Type 2 diabetes mellitus with diabetic nephropathy; E11.40 Type 2 diabetes mellitus with diabetic neuropathy, unspecified; E03.9 Hypothyroidism, unspecified; E66.9 Obesity, unspecified; Z68.37 Body mass index [BMI] 37.0-37.9, adult; Z87.891 Personal history of nicotine dependence; Z79.01 Long term (current) use of anticoagulants; Z79.899 Other long term (current) drug therapy; Z79.4 Long term (current) use of insulin; Z91.048 Other nonmedicinal substance allergy status; Z88.6 Allergy status to analgesic agent; Z20.822 Contact with and (suspected) exposure to COVID-19
CPT/HCPCS: 36415; 73630; 80053; 83036; 83605; 85025; 85610; 85652; 86140; 99283; U0002

== ENCOUNTER 2021-02-20 14:28 | Emergency (ER) | payer MEDICARE, MEDICAID ==
--- NOTE | 2021-02-20 15:41 | EDM.PDOC ---
ED HPI GENERAL MEDICAL PROBLEM - General Chief Complaint: Lower Extremity Injury/Pain Stated Complaint: ISSUES WITH CIRCULATION IN LEGS Time Seen by Provider: 02/20/21 14:30 - History of Present Illness INITIAL COMMENTS - FREE TEXT/NARRATIVE: Patient is a 56-year-old male he has a history of multiple prior lower extremity amputations. He has a history of diabetes poorly controlled he has a history of end-stage renal disease on hemodialysis Saturday and Saturdays. He is a history of bilateral lower extremity wounds. He presents at the urging of his wireless sales expert for consideration for vascular surgery evaluation. He has some minimal occasional sharp discomfort in his feet but no severe pain. He has no fever or chills. He reports that the right heel wound has been present for approximately 2 months in the left heel wound has been present for approximately 1 month. He has been on Bactrim. ROS: General: No fever. Skin: Per HPI ENT: No sore throat. Neck: No neck stiffness. Respiratory: No shortness of breath. Cardiac: No chest pain. Gastrointestinal: No nausea, vomiting or abdominal pain. Urinary: No dysuria. Musculoskeletal: Per HPI Neurologic: No headache. - Related Data Allergies Allergy/AdvReac Type Severity Reaction Status Date / Time naproxen sodium [From Aleve] Allergy Blisters Verified 02/20/21 14:51 tape Allergy Rash Uncoded 02/20/21 14:51 Home Meds: Home Meds Gabapentin [Neurontin] 300 mg PO TID 11/28/20 [History] Insulin Aspart [Insulin Aspart Flexpen] 12 units SQ TID 11/28/20 [History] Insulin Detemir [Levemir Flextouch] 24 units SQ DAILY 11/28/20 [History] Levothyroxine [Synthroid] 50 mcg PO DAILY 11/28/20 [History] Tamsulosin [Flomax] 0.4 mg PO DAILY 11/28/20 [History] amLODIPine [Norvasc] 5 mg PO DAILY 11/28/20 [History] atorvaSTATin [Lipitor] 20 mg PO DAILY 11/28/20 [History] hydrALAZINE [Apresoline] 25 mg PO TID 11/28/20 [History] Baclofen 5 mg PO DAILY 02/20/21 [History] Baclofen 5 mg PO TID 02/20/21 [History] DULoxetine [Cymbalta] 30 mg PO DAILY 02/20/21 [History] Metoprolol Tartrate 25 mg PO BID 02/20/21 [History] Sulfamethoxazole/Trimethoprim [Sulfamethoxazole-Tmp Ds Tablet] 800 mg PO BID 02/20/21 [History] Past Medical History HEENT History: Reports: Impaired Vision, Other (See Below) Other HEENT History: uses reading glasses, is blind in right eye Cardiovascular History: Reports: Blood Clots/VTE/DVT, High Cholesterol, Hypertension Other Cardiovascular History: hx of DVT right leg - 2 years ago- takes Eliquis Gastrointestinal History: Reports: GERD, Hiatal Hernia Genitourinary History: Reports: BPH, Dialysis, Diabetic Nephropathy, Renal Disease Other Genitourinary History: kidney failure from sarcoidosis Musculoskeletal History: Reports: Amputation, Fracture Other Musculoskeletal History: hx of fx fingers and ribs. hx of left shoulder dislocation. amputations: partial right foot, partial left foot, right hand 4th finger Neurological History: Reports: CVA, Neuropathy, Diabetic Endocrine/Metabolic History: Reports: Diabetes, Type II, Hypothyroidism, IDDM, Obesity/BMI 30+ Other Endocrine/Metabolic History: on dialysis Hematologic History: Reports: Anticoagulation Therapy Immunologic History: Reports: Immunosuppression Oncologic (Cancer) History: Reports: Other (See Below) Other Oncologic History: sarcoidosis Dermatologic History: Reports: Other (See Below) Other Dermatologic History: has open draining wound on right foot - Infectious Disease History Infectious Disease History: Reports: Chicken Pox, Measles - Past Surgical History Head Surgeries/Procedures: Reports: None HEENT Surgical History: Reports: Tonsillectomy, Visual Cardiovascular Surgical History: Reports: Vascular Surgery Other Cardiovascular Surgeries/Procedures: AV fistula inserted and port-a-cath placement Musculoskeletal Surgical History: Reports: Amputation, Other (See Below) Other Musculoskeletal Surgeries/Procedures:: Amputation of 7 toes, release of nerve intrapment in right arm-elbow Social & Family History - Family History Family Medical History: No Pertinent Family History - Tobacco Use Tobacco Use Status *Q: Former Tobacco User Years of Tobacco use: 30 Packs/Tins Daily: 3 Used Tobacco, but Quit: Yes Month/Year Tobacco Last Used: 04/2014 - Caffeine Use Caffeine Use: Reports: Coffee Caffeine Use Comment: occassionally - Recreational Drug Use Recreational Drug Use: No Review of Systems - Review of Systems Review Of Systems: See Below ED EXAM, GENERAL - Physical Exam Exam: See Below Free Text/Narrative:: General Appearance: No acute distress, appears comfortable Skin: No rash HEENT: Normocephalic/atraumatic, sclera anicteric, mucous membranes moist Neck: Normal range of motion Chest and Lungs: Bilateral breath sounds, clear to auscultation Cardiovascular: Regular rate and rhythm Abdomen: Soft, non-tender Back: Normal Musculoskeletal: Bilateral lower extremities pale and hairless from the calf down, there is a large necrotic right heel wound that is without purulence or exudate or surrounding erythema there is also a large left heel wound with some scant exudate but no surrounding erythema. Neurologic: Awake, alert, no obvious deficits, moving all extremities Psychiatric: Appropriate, cooperative Course - Vital Signs Last Recorded V/S: Last Vital Signs Temp 96.5 F L 02/20/21 15:05 Pulse 67 02/20/21 15:05 Resp 20 02/20/21 15:05 BP 132/71 02/20/21 15:05 Pulse Ox 99 02/20/21 15:05 - Orders/Labs/Meds Orders: Active Orders 24 hr Category Date Time Status CORONAVIRUS COVID-19 YVONNE [MOLEC] Stat Lab 02/20/21 18:00 Ordered Labs: Laboratory Tests 02/20/21 02/20/21 02/20/21 Range/Units 16:04 16:04 16:04 WBC 8.17 (4.0-11.0) K/uL RBC 3.14 L (4.50-5.90) M/uL Hgb 8.5 L (13.0-17.0) g/dL Hct 27.0 L (38.0-50.0) % MCV 86.0 (80.0-98.0) fL MCH 27.1 (27.0-32.0) pg MCHC 31.5 (31.0-37.0) g/dL RDW Std Deviation 45.1 (28.0-62.0) fl RDW Coeff of Ananth 14 (11.0-15.0) % Plt Count 304 (150-400) K/uL MPV 9.20 (7.40-12.00) fL Neut % (Auto) 69.5 (48.0-80.0) % Lymph % (Auto) 18.7 (16.0-40.0) % [place] % (Auto) 6.0 (0.0-15.0) % Eos % (Auto) 5.6 (0.0-7.0) % Baso % (Auto) 0.2 (0.0-1.5) % Neut # (Auto) 5.7 (1.4-5.7) K/uL Lymph # (Auto) 1.5 (0.6-2.4) K/uL [place] # (Auto) 0.5 (0.0-0.8) K/uL Eos # (Auto) 0.5 (0.0-0.7) K/uL Baso # (Auto) 0.0 (0.0-0.1) K/uL Nucleated RBC % 0.0 /100WBC Nucleated RBCs # 0 K/uL ESR > 140 H (0-19) mm/hr Sodium 138 (136-148) mmol/L Potassium 5.6 H (3.5-5.1) mmol/L Chloride 103 (98-107) mmol/L Carbon Dioxide 22.2 (21.0-32.0) mmol/L BUN 88 H (7.0-18.0) mg/dL Creatinine 7.8 H (0.8-1.3) mg/dL Est Cr Clr Drug Dosing TNP Estimated GFR (MDRD) 7.2 ml/min Glucose 208 H (74-106) mg/dL Calcium 8.6 (8.5-10.1) mg/dL Total Bilirubin 0.2 (0.2-1.0) mg/dL AST 15 (15-37) IU/L ALT 24 (14-63) IU/L Alkaline Phosphatase 74 (46-116) U/L C-Reactive Protein 6.30 H (0.00-0.90) mg/dL Total Protein 7.4 (6.4-8.2) g/dL Albumin 2.4 L (3.4-5.0) g/dL Globulin 5.0 H (2.6-4.0) g/dL Albumin/Globulin Ratio 0.5 L (0.9-1.6) Meds: Medications Discontinued Medications Generic Name Dose Route Start Last Admin Trade Name Freq PRN Reason Stop Dose Admin Dextrose/Water 50 ml 02/20/21 16:57 02/20/21 17:19 50% Dextrose In Water 50 Ml Syringe IVPUSH 02/20/21 16:58 50 ml ONETIME ONE Administration Insulin Human Regular 10 unit 02/20/21 16:57 02/20/21 17:50 Insulin Regular, Human 100 Units/Ml 10 Ml Vial IVPUSH 02/20/21 16:58 10 units ONETIME ONE Administration Protocol Sodium Polystyrene Sulfonate 45 gm 02/20/21 16:57 02/20/21 17:18 Sodium Polystyrene Sulfonate 15 Gm/60 Ml Susp 60 Ml Bot PO 02/20/21 16:58 45 gm NOW ONE Administration Departure - Departure Time of Disposition: 18:48 Disposition: Home, Self-Care 01 Condition: Good Clinical Impression: Peripheral vascular disease, Diabetic foot ulcers - Discharge Information *PRESCRIPTION DRUG MONITORING PROGRAM REVIEWED*: Not Applicable *COPY OF PRESCRIPTION DRUG MONITORING REPORT IN PATIENT JACKLYN: Not Applicable Instructions: Peripheral Vascular Disease, [id number], How to Change Your Wound Dressing, [id number] Referrals: Raul Lynn MD [Primary Care Provider] - Forms: ED Department Discharge Additional Instructions: Please be sure to go to dialysis tomorrow as scheduled. I called and spoke to Dr. Lebron who is a vascular surgeon at [facility] in [place]. His clinic is located in the main hospital building. Please call his clinic tomorrow morning at [phone] and they will be able to get you set up for an appointment. If your symptoms worsen in the meantime or you have any other new symptoms that concern you please call your primary care doctor or return to the ER. The following information is given to patients seen in the emergency department who are being discharged to home. This information is to outline your options for follow-up care. We provide all patients seen in our emergency department with a follow-up referral. The need for follow-up, as well as the timing and circumstances, are variable depending upon the specifics of your emergency department visit. If you don't have a primary care physician on staff, we will provide you with a referral. We always advise you to contact your personal physician following an emergency department visit to inform them of the circumstance of the visit and for follow-up with them and/or the need for any referrals to a consulting specialist. The emergency department will also refer you to a specialist when appropriate. This referral assures that you have the opportunity for follow-up care with a specialist. All of these measure are taken in an effort to provide you with optimal care, which includes your follow-up. Under all circumstances we always encourage you to contact your private physician who remains a resource for coordinating your care. When calling for follow-up care, please make the office aware that this follow-up is from your recent emergency room visit. If for any reason you are refused follow-up, please contact the [facility] Emergency Department at and asked to speak to the emergency department charge nurse. Sepsis Event Note (ED) - Evaluation Sepsis Screening Result: No Definite Risk - Focused Exam Vital Signs: Vital Signs Temp Pulse Resp BP Pulse Ox 02/20/21 15:05 96.5 F L 67 20 132/71 99 - My Orders Last 24 Hours: My Active Orders 02/20/21 18:00 CORONAVIRUS COVID-19 YVONNE [MOLEC] Stat - Assessment/Plan Last 24 Hours: My Active Orders 02/20/21 18:00 CORONAVIRUS COVID-19 YVONNE [MOLEC] Stat Assessment:: 56-year-old male presenting with signs of vascular insufficiency and chronic bilateral foot wounds. Certainly osteomyelitis is a possibility. X-rays and relevant labs are pending. We will start with arterial duplexes to assess his blood flow and discussed with vascular surgery. If they feel CT angiography is indicated and this could safely be done today as he is already scheduled for dialysis tomorrow. 1700: Labs with normal white blood cell count mild anemia likely related to chronic disease. Patient is mildly hyperkalemic again related to his renal disease. Will provide insulin glucose and Kayexalate as a temporizing measure. Patient is scheduled for dialysis tomorrow regardless. ESR remains extremely elevated, CRP has actually trended down over the last month. The patient's wounds are clearly chronic over the last 1-2 months and there is no evidence of an acute change at this time. US shows no evidence of acute vascular occlusion. Patient will be discussed with vascular surgery. COVID swab ordered given potential transfer. 1830: Pt discussed with Dr. Lebron the vascular surgeon national sales trainer at [facility]. [facility] is also full at this time. However, given the open major arteries on the US and the chronic nature of the wounds emergent transfer is not required. Dr. Lebron is happy to see the patient in the next few days at his clinic in [place]. The patient has been instructed to call the clinic tomorrow morning to arrange an appointment. He will also go to HD tomorrow as scheduled. Pt's VS are normal, no signs of sepsis. Pt comfortable with this plan.
[2021-02-20 16:40] LABS: BLOOD UREA NITROGEN,BUN 88 mg/dL (7.0-18.0); CARBON DIOXIDE,CO2 22.2 mmol/L (21.0-32.0)
[2021-02-20 16:47] LABS: CHLORIDE,CL 103 mmol/L (98-107); GLUCOSE RANDOM 208 mg/dL (74-106); POTASSIUM,K 5.6 mmol/L (3.5-5.1); SODIUM,NA 138 mmol/L (136-148)
[2021-02-20] MEDS ORDERED: Sodium Polystyrene Sulfonate 15 GM/60 ML Susp 60 ML Bot PO ONE (16:57)
[2021-02-20] MEDS ORDERED: Insulin Regular, Human 100 Units/ML 10 ML Vial IVPUSH ONE (16:57)
[2021-02-20] MEDS ORDERED: 50% Dextrose in Water 50 ML Syringe IVPUSH ONE (16:57)
--- NOTE | 2021-02-20 17:19 | US ---
Examination: Left lower extremity arterial Duplex ultrasound. Indication: Vascular insufficiency Technique: The left leg arteries were examined. Ultrasound performed using real-time morris scale imaging (B-mode 2D), color-flow Doppler and spectral analysis. Comparison: None available Findings: There are monophasic waveforms in the common femoral artery which persists throughout the superficial femoral, popliteal, posterior tibial, dorsalis pedis, peroneal, and anterior tibial arteries. There is no focal velocity elevation between adjacent segments to suggest a hemodynamically significant narrowing. No significant change in waveforms throughout. Impression: 1. Diminished waveforms in common femoral artery could be due to aortoiliac inflow disease. Consider CTA if ongoing concern. 2. No sonographic evidence of vessel occlusion or hemodynamically significant stenosis in the left leg arteries. Dictated by Rogerio Mckeon MD @ 02/21/2021 9:11:25 AM (Electronically Signed)
--- NOTE | 2021-02-20 18:10 | CR ---
Indication: Diabetic foot wounds Technique: Two views each foot Comparison: Right foot 02/03/2021 and left foot 01/22/2013 Findings: Right foot: The patient is status post transmetatarsal amputation of the right foot with mild heterotopic calcification laterally. Prominent soft tissue swelling, especially dorsally with suggestion of a soft tissue defect at the base of the foot. On the lateral view there is some rarefaction at the anterior margin of the cuboid. Additionally, there is some irregular periosteal reaction along the residual base of the 5th metatarsal. This does not appear significantly changed compared to the prior exam although early osteomyelitis at these levels is a possibility. Follow-up MRI would be suggested to assess for this possibility. Left foot: The patient is status post amputation of the 4th and 5th digits with prominent soft tissue swelling. Some periosteal reaction is present along the margin of the 5th metatarsal. A soft tissue defect is seen at the plantar aspect of the hindfoot although without convincing evidence of left foot osteomyelitis. Dictated by Jayden Worthington MD @ 02/20/2021 6:08:03 PM (Electronically Signed)
[2021-02-20 20:52] VITALS: BP 132/90; PULSE 76
== END 2021-02-20 20:30 | disposition home or self-care (01) ==
LOC: MW.ED 14:28
DX: E11.51 Type 2 diabetes mellitus with diabetic peripheral angiopathy without gangrene (principal); E11.621 Type 2 diabetes mellitus with foot ulcer; L97.519 Non-pressure chronic ulcer of other part of right foot with unspecified severity; L97.529 Non-pressure chronic ulcer of other part of left foot with unspecified severity; I12.0 Hypertensive chronic kidney disease with stage 5 chronic kidney disease or end stage renal disease; E11.22 Type 2 diabetes mellitus with diabetic chronic kidney disease; N18.6 End stage renal disease; E78.00 Pure hypercholesterolemia, unspecified; E11.40 Type 2 diabetes mellitus with diabetic neuropathy, unspecified; E11.21 Type 2 diabetes mellitus with diabetic nephropathy; E03.9 Hypothyroidism, unspecified; E66.9 Obesity, unspecified; Z99.2 Dependence on renal dialysis; Z87.891 Personal history of nicotine dependence; Z79.01 Long term (current) use of anticoagulants; Z88.6 Allergy status to analgesic agent; Z91.048 Other nonmedicinal substance allergy status; Z79.4 Long term (current) use of insulin; Z79.899 Other long term (current) drug therapy
CPT/HCPCS: 36415; 73620; 80053; 85025; 85652; 86140; 93926; 96374; 99284; A9270; U0002; J1815-GY